=== PATIENT | female | born 1945 | race Caucasian/White ===

== ENCOUNTER 2021-11-16 19:05 | Inpatient (IN) | payer MEDICARE, MEDICAID, SELFPAY ==
--- NOTE | 2021-11-16 | ECG_ITS ---
Test Reason : cp Blood Pressure : / mmHG Vent. Rate : 095 BPM Atrial Rate : 095 BPM P-R Int : 164 ms QRS Dur : 072 ms QT Int : 358 ms P-R-T Axes : 064 014 050 degrees QTc Int : 449 ms Sinus rhythm with occasional Premature ventricular complexes and Premature atrial complexes Possible Left atrial enlargement Borderline ECG No previous ECGs available Referred By: Monse Arechiga Electronically Signed By:Tyler Redd
--- NOTE | ~2021-11-16 | CT_ITS ---
EXAMINATION: CT HEAD WITHOUT CONTRAST CLINICAL INFORMATION: Unwitnessed fall. COMPARISON: None TECHNIQUE: Contiguous axial imaging was performed from the skull base to vertex without intravenous administration of contrast. This CT examination was performed using dose optimization techniques as appropriate, variously including the following: *Automated exposure control *Adjustment of mA and/or kV according to patient size (this includes techniques or standardized protocols for targeted exams where dose is matched to indication/reason for exam; i.e. extremities or head) *Use of iterative reconstruction technique DLP: 670 mGy-cm FINDINGS: There is no evidence of acute intracranial hemorrhage or territorial infarction. No abnormal mass effect or midline shift is seen. Meadows to white matter differentiation is well preserved. No extra-axial fluid collections are identified. The ventricles are normal in size. A few foci of hypoattenuation in the subcortical and periventricular white matter are most consistent with chronic microangiopathic changes. Calcific atherosclerosis is present within the cavernous segments of the internal carotid arteries. Atherosclerosis from talus interna. No acute fractures. Soft tissues are unremarkable. The mastoid air cells and visualized portions of the paranasal sinuses are well aerated. CT/CT head/brain wo con IMPRESSION: No acute intracranial pathology.
--- NOTE | ~2021-11-16 | XR_ITS ---
EXAMINATION: XR KNEE, RIGHT CLINICAL INFORMATION: Unwitnessed fall. Right knee pain COMPARISON: None TECHNIQUE: Four views of the right knee. FINDINGS: The tricompartment joint space is normal. No visible acute fracture or dislocation seen. There is moderate superior patellar sp no abnormal joint effusion. The soft tissues are normal. XR/XR knee RT 2V IMPRESSION: No visible acute fracture or dislocation. Small superior patellar enthesophyte. No abnormal joint effusion.
--- NOTE | ~2021-11-16 | US_ITS ---
EXAMINATION: US VENOUS ULTRASOUND WITH DOPPLER LOWER EXTREMITY, RIGHT CLINICAL INFORMATION: Swelling COMPARISON: None TECHNIQUE: Ultrasound of the deep veins is performed from the hip to the calf with compression sonography and color and pulse Doppler assessment. Spectral analysis with color-flow imaging is performed. FINDINGS: There is normal venous compression and respiratory variation and augmented flow. The visualized common femoral vein, superficial femoral vein, profunda femoral vein, popliteal vein, and the trifurcation region shows no evidence of deep venous thrombosis. There is no significant popliteal fossa cyst. US/US venous duplex LE RT IMPRESSION: No DVT demonstrated in the right lower extremity.
[2021-11-16 19:40] VITALS: BP 120/74; PULSE 82; RESP 18; TEMP 37.5; O2SAT 94
[2021-11-16 19:58] VITALS: BMI 26.4
[2021-11-16 20:32] VITALS: BP 120/74; PULSE 82; RESP 18; TEMP 37.5; O2SAT 94
[2021-11-16 20:54] LABS: Appearance Urine CLEAR; Color Urine STRAW; Glucose Urine UA NEG (NEG); Leukocyte Esterase Urine TRACE (NEG); Nitrite Urine NEG (NEG); Urine Blood NEG (NEG); Urine Ketones NEG (NEG); Urine Protein NEG (NEG-TRACE)
[2021-11-16 21:01] LABS: Bacteria Urine TRACE /LPF; Mucus Urine TRACE /LPF; RBC Urine 0-2 /HPF (0)
[2021-11-16] MEDS: Divalproex Sodium 250 MG TABLET.DR PO (21:41)
[2021-11-16] MEDS: clonazePAM 0.5 MG TABLET PO (21:41)
[2021-11-16] MEDS: Tamsulosin HCL 0.4 MG CAPSULE 0.8 MG PO (21:41)
[2021-11-16] MEDS: Divalproex Sodium 500 MG TABLET.DR PO (21:41)
[2021-11-16] MEDS: OLANZapine 10 MG TABLET 20 MG PO (21:42)
[2021-11-16] MEDS: QUEtiapine Fumarate 50 MG TABLET PO (21:42)
[2021-11-16] MEDS: traZODone HCL 50 MG TABLET PO (22:02)
[2021-11-16] MEDS: clonazePAM 0.5 MG TABLET 1.5 MG PO (22:02)
[2021-11-16] MEDS: oxyCODONE HCl ER 10 MG TAB.ER.12H PO (22:03)
[2021-11-16] MEDS: oxyCODONE HCl Immed Release 5 MG TABLET PO (22:03)
--- NOTE | 2021-11-16 22:09 | PC.ADMIT ---
PT is a 76 year old female, unknown to this unit, admitted on a CV,at 1925, coming from [facility] due to OD of APAP. PT denies Si/HI, A/VH, PT states she 'Feels safe on unit . 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 PT C/O pain 8/10 in right leg which is chronic pain, PT C/O burning and frequency, UA obtained. PT also had an EKG which showed sinus rhythm with PVCs. PT has past medical history of cancer, HTN, GERD, T2DM and asthma. PT has a port on upper right chest for blood draws and chemotherapy. PT was calm, cooperative and medication compliant. PT did refuse her bowel meds this pm. PT last BM was 11/15/21. PT VSS, T 99.5, notified.
[2021-11-17] MEDS: oxyCODONE HCl Immed Release 5 MG TABLET PO ×3 (06:17→21:16)
[2021-11-17] MEDS: Omeprazole 20 MG CAPSULE.DR PO (06:17)
[2021-11-17 07:00] LABS: MANUAL DIFF FLAG NO
[2021-11-17 07:02] LABS: Basophils Percent Auto 0.2 % (0-2); Eosinophils Absolute Auto 0.3 X10*3/uL (0.0-0.4); Eosinophils Percent Auto 5.8 % (0-4); Hematocrit 30.1 % (37.0-47.0); Hemoglobin 9.9 g/dl (12.0-16.0); Imm Gran Abs Auto 0.04 X10*3/uL (0.00-0.03); Imm Gran Pct Auto 0.9 % (0.0-0.4); Lymphocytes Absolute Auto 1.5 X10*3/uL (1.2-4.9); Lymphocytes Percent Auto 30.9 % (20-40); Mean Corpuscular HGB Conc 32.9 g/dl (31.0-35.0); Mean Corpuscular Hemoglobin 28.8 pg (27.0-33.0); Mean Corpuscular Volume 87.5 fL (80.0-98.0); Mean Platelet Volume 10.9 fL (9.4-12.3); Monocytes Absolute Auto 0.6 X10*3/uL (0.1-1.2); Monocytes Percent Auto 13.6 % (2-11); Neutrophils Absolute Auto 2.3 x10*3/uL (2.0-8.3); Neutrophils Percent Auto 48.6 % (45-73); Platelet Count 164 X10*3/uL (160-400); Red Blood Count 3.44 X10*6/uL (4.20-5.50); Red Cell Distribution Width 13.2 % (11.0-16.0); White Blood Count 4.7 X10*3/uL (4.8-10.8)
[2021-11-17 07:14] LABS: Estimated Average Glucose 117 mg/dL; Hemoglobin A1C 119.3684 umol/L; Hemoglobin A1c % 5.7 %
[2021-11-17 07:36] LABS: Valproate 57.4 mcg/mL (50.0-100.0)
[2021-11-17 07:38] LABS: Alanine Aminotransferase 25 U/L (0-31); Albumin Level 3.2 g/dL (3.5-5.0); Alkaline Phosphatase 87 U/L (39-117); Anion Gap 11 (12-20); Aspartate Amino Transferase 18 U/L (5-31); Bilirubin Total 0.4 mg/dL (0.0-1.0); Blood Urea Nitrogen 16 mg/dL (9-16); Carbon Dioxide 31 mmol/L (22-29); Chloride 96 mmol/L (96-108); Cholesterol 137 mg/dL; Creatinine Clr Calc Pharmacy 49.4; Estimated Glomerular Filt Rate 52; Glucose Fasting 109 mg/dL (60-99); HDL Cholesterol 45 mg/dL; LDL Cholesterol Calculated 76 mg/dl; Magnesium 2.1 mg/dL (1.6-2.6); Potassium 4.6 mmol/L (3.3-5.1); Sodium 133 mmol/L (135-145); Total Protein 4.8 g/dL (6.5-8.0); Triglycerides 82 mg/dL
[2021-11-17 07:59] LABS: Free T4 (Free Thyroxine) 1.51 ng/dL (0.71-1.85); Thyroid Stimulating Hormone 0.66 uIU/mL (0.32-4.0)
[2021-11-17 08:00] VITALS: BP 109/58; PULSE 90; TEMP 37.1; O2SAT 91
[2021-11-17 08:03] LABS: Folate 17.5 ng/mL (> or = 4.0); Vitamin B12 529 pg/mL (200-900)
[2021-11-17] MEDS: polyethylene glycoL 3350 17 GM POWD.PACK PO ×2 (08:26→21:06)
[2021-11-17] MEDS: Sennosides 8.6 MG TABLET 17.2 MG PO ×2 (08:26→21:06)
[2021-11-17] MEDS: Loratadine 10 MG TABLET PO (08:26)
[2021-11-17] MEDS: oxyCODONE HCl ER 10 MG TAB.ER.12H PO ×2 (08:27→21:16)
[2021-11-17] MEDS: Aspirin 81 MG TAB.CHEW PO (08:27)
[2021-11-17] MEDS: metFORMIN HCl 500 MG TABLET PO (08:27)
[2021-11-17] MEDS: amLODIPine Besylate 2.5 MG TABLET PO (08:28)
[2021-11-17] MEDS: Fluticasone Propionate Nasal 16 GM SPRAY 1 SPRAY NOSTRIL-B ×2 (08:28→21:22)
[2021-11-17] MEDS: Albuterol Sulfate 90 MCG 8 GM INHALER 2 PUFF INHALE (08:28)
[2021-11-17] MEDS: Multivitamin TABLET 1 TAB PO (08:28)
[2021-11-17] MEDS: Lactulose 20 GM/30 ML SOLUTION PO ×2 (14:11→21:30)
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
[2021-11-17 18:00] VITALS: BP 122/75; PULSE 94; RESP 16; TEMP 36.2; O2SAT 93
[2021-11-17] MEDS: QUEtiapine Fumarate 50 MG TABLET PO (21:06)
[2021-11-17] MEDS: OLANZapine 10 MG TABLET 20 MG PO (21:06)
[2021-11-17] MEDS: Montelukast Sodium 10 MG TABLET PO (21:06)
[2021-11-17] MEDS: Tamsulosin HCL 0.4 MG CAPSULE 0.8 MG PO (21:06)
[2021-11-17] MEDS: Divalproex Sodium 250 MG TABLET.DR PO (21:06)
[2021-11-17] MEDS: Divalproex Sodium 500 MG TABLET.DR PO (21:07)
[2021-11-17] MEDS: clonazePAM 0.5 MG TABLET 1.5 MG PO (21:20)
[2021-11-17] MEDS: Budesonide 180 MCG AER.POW.BA 2 PUFF INHALE (21:21)
[2021-11-18] MEDS: oxyCODONE HCl Immed Release 5 MG TABLET PO ×4 (04:56→20:16)
[2021-11-18] MEDS: Omeprazole 20 MG CAPSULE.DR PO (04:57)
[2021-11-18] MEDS: Budesonide 180 MCG AER.POW.BA 2 PUFF INHALE ×2 (08:41→20:09)
[2021-11-18] MEDS: Fluticasone Propionate Nasal 16 GM SPRAY 1 SPRAY NOSTRIL-B ×2 (08:44→20:09)
[2021-11-18] MEDS: polyethylene glycoL 3350 17 GM POWD.PACK PO ×2 (08:45→20:11)
[2021-11-18] MEDS: Loratadine 10 MG TABLET PO (08:46)
[2021-11-18] MEDS: Aspirin 81 MG TAB.CHEW PO (08:46)
[2021-11-18] MEDS: metFORMIN HCl 500 MG TABLET PO ×2 (08:46→17:14)
[2021-11-18] MEDS: Sennosides 8.6 MG TABLET 17.2 MG PO ×2 (08:46→20:13)
[2021-11-18] MEDS: Multivitamin TABLET 1 TAB PO (08:46)
[2021-11-18] MEDS: amLODIPine Besylate 2.5 MG TABLET PO (08:48)
[2021-11-18 08:53] VITALS: BP 167/74; PULSE 92; RESP 16; TEMP 37.2; O2SAT 96
[2021-11-18] MEDS: Ibuprofen 600 MG TABLET PO (09:19)
[2021-11-18] MEDS: Milk of Magnesia 30 ML ORAL.SUSP PO (09:19)
[2021-11-18 10:24] VITALS: BMI 25.9
[2021-11-18] MEDS: Docusate Sodium 100 MG CAPSULE PO (14:18)
[2021-11-18] MEDS: Lactulose 20 GM/30 ML SOLUTION PO (14:21)
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
[2021-11-18] MEDS: OLANZapine 10 MG TABLET 20 MG PO (20:13)
[2021-11-18] MEDS: Divalproex Sodium 500 MG TABLET.DR PO (20:14)
[2021-11-18] MEDS: Montelukast Sodium 10 MG TABLET PO (20:14)
[2021-11-18] MEDS: Divalproex Sodium 250 MG TABLET.DR PO (20:14)
[2021-11-18] MEDS: QUEtiapine Fumarate 50 MG TABLET PO (20:14)
[2021-11-18] MEDS: oxyCODONE HCl ER 10 MG TAB.ER.12H PO (20:15)
[2021-11-18] MEDS: Tamsulosin HCL 0.4 MG CAPSULE 0.8 MG PO (20:15)
[2021-11-18] MEDS: clonazePAM 0.5 MG TABLET 1.5 MG PO (20:27)
[2021-11-18 21:59] VITALS: BP 127/67; PULSE 86; RESP 17; TEMP 36.3; O2SAT 96
[2021-11-19] MEDS: oxyCODONE HCl Immed Release 5 MG TABLET PO ×4 (01:28→20:37)
[2021-11-19] MEDS: Lactulose 20 GM/30 ML SOLUTION PO ×3 (02:25→20:55)
[2021-11-19 08:29] VITALS: BP 197/62; PULSE 91; RESP 17; TEMP 37.1; O2SAT 93
[2021-11-19] MEDS: Sennosides 8.6 MG TABLET 17.2 MG PO ×2 (09:24→20:36)
[2021-11-19] MEDS: Aspirin 81 MG TAB.CHEW PO (09:24)
[2021-11-19] MEDS: Loratadine 10 MG TABLET PO (09:26)
[2021-11-19] MEDS: amLODIPine Besylate 2.5 MG TABLET PO (09:26)
[2021-11-19] MEDS: metFORMIN HCl 500 MG TABLET PO ×2 (09:27→17:29)
[2021-11-19] MEDS: Fluticasone Propionate Nasal 16 GM SPRAY 1 SPRAY NOSTRIL-B ×2 (09:27→20:36)
[2021-11-19] MEDS: Multivitamin TABLET 1 TAB PO (09:27)
[2021-11-19] MEDS: Omeprazole 20 MG CAPSULE.DR PO (09:28)
[2021-11-19] MEDS: Budesonide 180 MCG AER.POW.BA 2 PUFF INHALE (09:28)
[2021-11-19] MEDS: polyethylene glycoL 3350 17 GM POWD.PACK PO ×2 (09:29→20:38)
[2021-11-19] MEDS: Milk of Magnesia 30 ML ORAL.SUSP PO (10:55)
--- NOTE | 2021-11-19 14:21 | P.PNPSI_ITS ---
Subjective Subjective Date of Service: 11/19/21 Reason For Visit: schizoaffective disorder,bipolar type Subjective Notes: Conditional Voluntary Interim History: the nursing staff reported the patient has been appropriate, she has been taking medications as prescribed. Yesterday we have a family meeting over the phone with her brother and niece who are the guardians. The patient has a very complex situation since she has terminal and they want to give her the longus possible in the hospital but at this moment, the patient adamantly denies suicidal ideation she stated that she took an overdose on medications out of frustration. The nursing facility refused her to be taken due to the recent attempt of suicidality. On interview, the patient came up with a very long list of medication request med and of PRNs and other medications but so far nearly all her request were already addressed. I added the use of her spirometer and PT consult. Mental Status Exam Mental Status Exam Patient Appearance: Well Grooomed Patient Orientation: Person Level of Consciousness: Awake Patient Behavior: Guarded and Cooperative Mood Description: Suspicious and Withdrawn Affect Description: Constricted Patient Cognition Impaired: No Ability to Follow Directions: Good Speech Pattern: Appropriate Hallucinations: Auditory Delusions: Paranoid Ideation, Grandiose and Ideas of Reference Thought Process: Illogical and Distracted Thought Content: positive for Obsessional Thoughts, positive for Circumstantial, positive for Poverty of Content and positive for Incoherent Judgement: Fair Diagnostics Vital Signs (24Hr): Vital Signs - 24 hr 11/18/21 21:59 11/19/21 08:29 Temperature 97.4 F 98.8 F Pulse Rate 86 91 Respiratory Rate 17 17 Blood Pressure 127/67 197/62 H Pulse Oximetry 96 93 BMI result Body Mass Index 25.9 Labs Results: 11/17/21 06:51 11/17/21 06:51 Medications Medications Current Medications Acetaminophen (Acetaminophen 325 Mg Tablet) 650 mg PO Q6H PRN PRN Reason: Headache/Pain Mild Scale (1-3) Al Hydroxide/Mg Hydroxide (Magnesium Hydrox/Alum Hydrox 30 Ml Oral.Susp) 30 ml PO Q6H PRN PRN Reason: Heartburn/Nausea Albuterol Sulfate (Albuterol Sulfate 90 Mcg 8 Gm Inhaler) 2 puff INHALE Q6H PRN PRN Reason: asthma Last Admin: 11/17/21 08:28 Dose: 2 puff Documented by: Amlodipine Besylate (Amlodipine Besylate 2.5 Mg Tablet) 2.5 mg PO DAILY [facility]; Protocol Last Admin: 11/19/21 09:26 Dose: 2.5 mg Documented by: Aspirin (Aspirin 81 Mg Tab.Chew) 81 mg PO DAILY [facility] Last Admin: 11/19/21 09:24 Dose: 81 mg Documented by: Bisacodyl (Bisacodyl 5 Mg Tablet.) 10 mg PO DAILY PRN PRN Reason: Constipation Budesonide (Budesonide 180 Mcg Aer.Pow.Ba) 2 puff INHALE RBID [facility] Last Admin: 11/19/21 09:28 Dose: 2 puff Documented by: Clonazepam (Clonazepam 0.5 Mg Tablet) 1.5 mg PO BID PRN PRN Reason: anxiety Last Admin: 11/18/21 20:27 Dose: 1.5 mg Documented by: Divalproex Sodium (Divalproex Sodium 500 Mg Tablet.) 500 mg PO BEDTIME [facility] Last Admin: 11/18/21 20:14 Dose: 500 mg Documented by: Divalproex Sodium (Divalproex Sodium 250 Mg Tablet.) 250 mg PO BEDTIME [facility] Last Admin: 11/18/21 20:14 Dose: 250 mg Documented by: Docusate Sodium (Docusate Sodium 100 Mg Capsule) 100 mg PO BID PRN PRN Reason: constipation Last Admin: 11/18/21 14:18 Dose: 100 mg Documented by: Fluticasone Propionate (Fluticasone Propionate Nasal 16 Gm [place]) 1 spray N OSTRIL-B BID [facility] Last Admin: 11/19/21 09:27 Dose: 1 spray Documented by: Hydroxyzine HCl (Hydroxyzine Hcl 25 Mg Tablet) 25 mg PO Q6H PRN PRN Reason: Anxiety Ibuprofen (Ibuprofen 600 Mg Tablet) 600 mg PO Q8H PRN PRN Reason: mod-severe pain, fever Last Admin: 11/18/21 09:19 Dose: 600 mg Documented by: Lactulose (Lactulose 20 Gm/30 Ml Solution) 20 gm PO BID PRN PRN Reason: constipation Last Admin: 11/19/21 10:56 Dose: 20 gm Documented by: Loperamide HCl (Loperamide Hcl 2 Mg Capsule) 2 mg PO Q6H PRN PRN Reason: diarrhea Loratadine (Loratadine 10 Mg Tablet) 10 mg PO DAILY [facility] Last Admin: 11/19/21 09:26 Dose: 10 mg Documented by: Magnesium Hydroxide (Milk Of Magnesia 30 Ml Oral.Susp) 30 ml PO DAILY PRN PRN Reason: Constipation Last Admin: 11/19/21 10:55 Dose: 30 ml Documented by: Metformin HCl (Metformin Hcl 500 Mg Tablet) 500 mg PO BIDWM [facility] Last Admin: 11/19/21 09:27 Dose: 500 mg Documented by: Montelukast Sodium (Montelukast Sodium 10 Mg Tablet) 10 mg PO BEDTIME [facility] Last Admin: 11/18/21 20:14 Dose: 10 mg Documented by: Multivitamins/Vitamin C (Multivitamin Tablet) 1 tab PO DAILY [facility] Last Admin: 11/19/21 09:27 Dose: 1 tab Documented by: Olanzapine (Olanzapine 10 Mg Tablet) 20 mg PO BEDTIME [facility] Last Admin: 11/18/21 20:13 Dose: 20 mg Documented by: Omeprazole (Omeprazole 20 Mg Capsule.Dr) 20 mg PO DAILY@0630 [facility] Last Admin: 11/19/21 09:28 Dose: 20 mg Documented by: Ondansetron HCl (Ondansetron Odt 8 Mg Tab.Rapdis) 8 mg TRANSLINGU Q8H PRN PRN Reason: Nausea Oxycodone HCl (Oxycodone Hcl Er 10 Mg Tab.Er.12h) 10 mg PO Q12H [facility] Last Admin: 11/19/21 09:33 Dose: Not Given Documented by: Oxycodone HCl (Oxycodone Hcl Immed Release 5 Mg Tablet) 5 mg PO Q4H PRN PRN Reason: severe pain Last Admin: 11/19/21 11:09 Dose: 5 mg Documented by: Polyethylene Glycol (Polyethylene Glycol 3350 17 Gm Powd.Pack) 17 gm PO BID [facility] Last Admin: 11/19/21 09:29 Dose: 17 gm Documented by: Potassium Chloride (Potassium Chloride Er 10 Meq Capsule.Er) 10 meq PO Q48H [facility] Last Admin: 11/18/21 20:21 Dose: 10 meq Documented by: Prochlorperazine Maleate (Prochlorperazine Maleate 5 Mg Tablet) 5 mg PO TID PRN PRN Reason: nausea, vomiting Quetiapine Fumarate (Quetiapine Fumarate 50 Mg Tablet) 50 mg PO BEDTIME [facility] Last Admin: 11/18/21 20:14 Dose: 50 mg Documented by: Quetiapine Fumarate (Quetiapine Fumarate 50 Mg Tablet) 50 mg PO BID PRN PRN Reason: agitation, anxiety Senna (Sennosides 8.6 Mg Tablet) 17.2 mg PO BID [facility] Last Admin: 11/19/21 09:24 Dose: 17.2 mg Documented by: Simethicone (Simethicone 80 Mg Tab.Chew) 80 mg PO QIDWMHS PRN PRN Reason: gas Sodium Biphosphate/Sodium Phosphate (Sodium Phosphate,[place]-Dibasic 133 Ml Enema) 133 ml [place] ONCE PRN PRN Reason: constipation Tamsulosin HCl (Tamsulosin Hcl 0.4 Mg Capsule) 0.8 mg PO BEDTIME [facility] Last Admin: 11/18/21 20:15 Dose: 0.8 mg Documented by: Trazodone HCl (Trazodone Hcl 50 Mg Tablet) 50 mg PO BEDTIME PRN PRN Reason: Insomnia Last Admin: 11/16/21 22:02 Dose: 50 mg Documented by: Allergies Allergies Allergy/AdvReac Type Severity Reaction Status Date / Time clozapine [From Clozaril] Allergy Unknown decreased Verified 11/16/21 19:39 WBC haloperidol [From Haldol] Allergy Unknown unknown Verified 11/16/21 19:36 cat dander Allergy Unknown Verified 11/16/21 21:31 house dust Allergy Unknown Verified 11/16/21 21:31 Phenothiazines Allergy Unknown Verified 11/16/21 21:31 wool Allergy Unknown Verified 11/16/21 21:31 Assessment & Plan Assessment & Plan (1) Routine medical exam: Status: Acute Code(s): Z00.00 - Encounter for general adult medical examination without abnormal findings Assessment and Plan: The patient is an elderly female with a long history of schizo affective disorder bipolar type with several admissions into the hospital. At this moment she has stage for endometrial cancer she is terminal. She was admitted after she took an overdose of Tylenol after an anger outburst. Plan 1. Continue same medications. 2. We will try to coordinate trying therapy for outpatient. 3. Discharge planning as per social scientist plan I spent minutes with the patient and/or on the patient floor today, greater than?50% of which was spent counseling/coordinating care. Reason for contiued inpatient stay Substantial Risk for: harm to self, inability to function, rapid decompensation and med/psych decompensation
[2021-11-19 15:22] VITALS: BMI 25.9
[2021-11-19] MEDS: Ondansetron ODT 8 MG TAB.RAPDIS TRANSLINGU (15:39)
[2021-11-19] MEDS: Ibuprofen 600 MG TABLET PO (15:44)
[2021-11-19 20:20] VITALS: BP 130/67; PULSE 98; RESP 16; TEMP 36.6; O2SAT 92
[2021-11-19] MEDS: clonazePAM 0.5 MG TABLET 1.5 MG PO (20:36)
[2021-11-19] MEDS: OLANZapine 10 MG TABLET 20 MG PO (20:37)
[2021-11-19] MEDS: QUEtiapine Fumarate 50 MG TABLET PO (20:37)
[2021-11-19] MEDS: Divalproex Sodium 500 MG TABLET.DR PO (20:37)
[2021-11-19] MEDS: Divalproex Sodium 250 MG TABLET.DR PO (20:37)
[2021-11-19] MEDS: traZODone HCL 50 MG TABLET PO (20:37)
[2021-11-19] MEDS: Tamsulosin HCL 0.4 MG CAPSULE 0.8 MG PO (20:38)
[2021-11-19] MEDS: Montelukast Sodium 10 MG TABLET PO (20:38)
[2021-11-19] MEDS: oxyCODONE HCl ER 10 MG TAB.ER.12H PO (20:38)
[2021-11-20] MEDS: oxyCODONE HCl Immed Release 5 MG TABLET PO ×3 (05:39→21:18)
[2021-11-20] MEDS: Omeprazole 20 MG CAPSULE.DR PO (05:39)
[2021-11-20 06:00] VITALS: BP 128/81; PULSE 87; RESP 16; TEMP 36.6; O2SAT 97
--- NOTE | 2021-11-20 06:11 | PC.NURSE ---
Pt. requested the following PRNs Oxycodone 5mg, Clonazepam 1.5mg and trazodone 50mg with HS medications which included Oxycontin 10mg for 9/10 right leg pain. Monse Arechiga NP notified and reported it was ok for pt. to have the PRNs.
[2021-11-20] MEDS: polyethylene glycoL 3350 17 GM POWD.PACK PO ×2 (10:31→21:18)
[2021-11-20] MEDS: Multivitamin TABLET 1 TAB PO (10:33)
[2021-11-20] MEDS: metFORMIN HCl 500 MG TABLET PO ×2 (10:33→17:00)
[2021-11-20] MEDS: Loratadine 10 MG TABLET PO (10:33)
[2021-11-20] MEDS: oxyCODONE HCl ER 10 MG TAB.ER.12H PO ×2 (10:33→21:18)
[2021-11-20] MEDS: Sennosides 8.6 MG TABLET 17.2 MG PO ×2 (10:33→21:17)
[2021-11-20] MEDS: Budesonide 180 MCG AER.POW.BA 2 PUFF INHALE (10:34)
[2021-11-20] MEDS: amLODIPine Besylate 2.5 MG TABLET PO (10:34)
[2021-11-20] MEDS: Aspirin 81 MG TAB.CHEW PO (10:34)
[2021-11-20] MEDS: Fluticasone Propionate Nasal 16 GM SPRAY 1 SPRAY NOSTRIL-B ×2 (10:34→21:14)
[2021-11-20] MEDS: Ondansetron ODT 8 MG TAB.RAPDIS TRANSLINGU (10:47)
[2021-11-20] MEDS: Milk of Magnesia 30 ML ORAL.SUSP PO (10:47)
[2021-11-20] MEDS: Lactulose 20 GM/30 ML SOLUTION PO ×2 (10:49→21:18)
--- NOTE | 2021-11-20 15:25 | P.PNPSI_ITS ---
Subjective Subjective Date of Service: 11/20/21 Reason For Visit: schizoaffective disorder,bipolar type Interim History: with patient presents as very guarded. Was talking about having to give up her brain and so to machinery and technology. Reported [facility] falsifying her records and lying that she has a history of overdose attempts. Reports this was originated at [facility] and she is hopeful for an assisted living facility. Was illogical throughout interview and was talking about her family and abortions. Denied depression SI or HI. Wanted clarification and Klonopin being able to been given 2 doses per 24 hours, otherwise no medication questions or concerns. Medication Compliance: Yes Side effects from medications: No Review of Systems Acute medical concerns: No Review of Systems Review of Systems No new. Chronic pain already noted and being treated Mental Status Exam Mental Status Exam Narrative: seen in room. Pleasant. Hospital clothing and for self-care. Quickly goes off track during interview with loosening of association. Guarded. Does appear paranoid with bizarre delusions. Denied depression. No evidence of SI or HI. Insight and judgment limited Diagnostics Vital Signs (24Hr): Vital Signs - 24 hr 11/19/21 20:20 11/20/21 06:00 Temperature 97.9 F 97.8 F Pulse Rate 98 87 Respiratory Rate 16 16 Blood Pressure 130/67 128/81 Pulse Oximetry 92 97 BMI result Body Mass Index 25.9 Labs Results: 11/17/21 06:51 11/17/21 06:51 Medications Medications Current Medications Acetaminophen (Acetaminophen 325 Mg Tablet) 650 mg PO Q6H PRN PRN Reason: Headache/Pain Mild Scale (1-3) Al Hydroxide/Mg Hydroxide (Magnesium Hydrox/Alum Hydrox 30 Ml Oral.Susp) 30 ml PO Q6H PRN PRN Reason: Heartburn/Nausea Albuterol Sulfate (Albuterol Sulfate 90 Mcg 8 Gm Inhaler) 2 puff INHALE Q6H PRN PRN Reason: asthma Last Admin: 11/17/21 08:28 Dose: 2 puff Documented by: Amlodipine Besylate (Amlodipine Besylate 2.5 Mg Tablet) 2.5 mg PO DAILY [facility]; Protocol Last Admin: 11/20/21 10:34 Dose: 2.5 mg Documented by: Aspirin (Aspirin 81 Mg Tab.Chew) 81 mg PO DAILY [facility] Last Admin: 11/20/21 10:34 Dose: 81 mg Documented by: Bisacodyl (Bisacodyl 5 Mg Tablet.) 10 mg PO DAILY PRN PRN Reason: Constipation Budesonide (Budesonide 180 Mcg Aer.Pow.) 2 puff INHALE RBID [facility] Last Admin: 11/20/21 10:34 Dose: 2 puff Documented by: Clonazepam (Clonazepam 0.5 Mg Tablet) 1.5 mg PO BID PRN PRN Reason: anxiety Last Admin: 11/19/21 20:36 Dose: 1.5 mg Documented by: Divalproex Sodium (Divalproex Sodium 500 Mg Tablet.) 500 mg PO BEDTIME [facility] Last Admin: 11/19/21 20:37 Dose: 500 mg Documented by: Divalproex Sodium (Divalproex Sodium 250 Mg Tablet.) 250 mg PO BEDTIME [facility] Last Admin: 11/19/21 20:37 Dose: 250 mg Documented by: Docusate Sodium (Docusate Sodium 100 Mg Capsule) 100 mg PO BID PRN PRN Reason: constipation Last Admin: 11/18/21 14:18 Dose: 100 mg Documented by: Fluticasone Propionate (Fluticasone Propionate Nasal 16 Gm [place]) 1 spray NOSTRIL-B BID [facility] Last Admin: 11/20/21 10:34 Dose: 1 spray Documented by: Hydroxyzine HCl (Hydroxyzine Hcl 25 Mg Tablet) 25 mg PO Q6H PRN PRN Reason: Anxiety Ibuprofen (Ibuprofen 600 Mg Tablet) 600 mg PO Q8H PRN PRN Reason: mod-severe pain, fever Last Admin: 11/19/21 15:44 Dose: 600 mg Documented by: Lactulose (Lactulose 20 Gm/30 Ml Solution) 20 gm PO BID PRN PRN Reason: constipation Last Admin: 11/20/21 10:49 Dose: 20 gm Documented by: Loperamide HCl (Loperamide Hcl 2 Mg Capsule) 2 mg PO Q6H PRN PRN Reason: diarrhea Loratadine (Loratadine 10 Mg Tablet) 10 mg PO DAILY [facility] Last Admin: 11/20/21 10:33 Dose: 10 mg Documented by: Magnesium Hydroxide (Milk Of Magnesia 30 Ml Oral.Susp) 30 ml PO DAILY PRN PRN Reason: Constipation Last Admin: 11/20/21 10:47 Dose: 30 ml Documented by: Metformin HCl (Metformin Hcl 500 Mg Tablet) 500 mg PO BIDWM [facility] Last Admin: 11/20/21 10:33 Dose: 500 mg Documented by: Montelukast Sodium (Montelukast Sodium 10 Mg Tablet) 10 mg PO BEDTIME [facility] Last Admin: 11/19/21 20:38 Dose: 10 mg Documented by: Multivitamins/Vitamin C (Multivitamin Tablet) 1 tab PO DAILY [facility] Last Admin: 11/20/21 10:33 Dose: 1 tab Documented by: Olanzapine (Olanzapine 10 Mg Tablet) 20 mg PO BEDTIME [facility] Last Admin: 11/19/21 20:37 Dose: 20 mg Documented by: Omeprazole (Omeprazole 20 Mg Capsule.Dr) 20 mg PO DAILY@0630 [facility] Last Admin: 11/20/21 05:39 Dose: 20 mg Documented by: Ondansetron HCl (Ondansetron Odt 8 Mg Tab.Rapdis) 8 mg TRANSLINGU Q8H PRN PRN Reason: Nausea Last Admin: 11/20/21 10:47 Dose: 8 mg Documented by: Oxycodone HCl (Oxycodone Hcl Er 10 Mg Tab.Er.12h) 10 mg PO Q12H [facility] Last Admin: 11/20/21 10:33 Dose: 10 mg Documented by: Oxycodone HCl (Oxycodone Hcl Immed Release 5 Mg Tablet) 5 mg PO Q4H PRN PRN Reason: severe pain Last Admin: 11/20/21 05:39 Dose: 5 mg Documented by: Polyethylene Glycol (Polyethylene Glycol 3350 17 Gm Powd.Pack) 17 gm PO BID [facility] Last Admin: 11/20/21 10:31 Dose: 17 gm Documented by: Potassium Chloride (Potassium Chloride Er 10 Meq Capsule.Er) 10 meq PO Q48H [facility] Last Admin: 11/18/21 20:21 Dose: 10 meq Documented by: Prochlorperazine Maleate (Prochlorperazine Maleate 5 Mg Tablet) 5 mg PO TID PRN PRN Reason: nausea, vomiting Quetiapine Fumarate (Quetiapine Fumarate 50 Mg Tablet) 50 mg PO BEDTIME [facility] Last Admin: 11/19/21 20:37 Dose: 50 mg Documented by: Quetiapine Fumarate (Quetiapine Fumarate 50 Mg Tablet) 50 mg PO BID PRN PRN Reason: agitation, anxiety Senna (Sennosides 8.6 Mg Tablet) 17.2 mg PO BID [facility] Last Admin: 11/20/21 10:33 Dose: 17.2 mg Documented by: Simethicone (Simethicone 80 Mg Tab.Chew) 80 mg PO QIDWMHS PRN PRN Reason: gas Sodium Biphosphate/Sodium Phosphate (Sodium Phosphate,[place]-Dibasic 133 Ml Enema) 133 ml [place] ONCE PRN PRN Reason: constipation Tamsulosin HCl (Tamsulosin Hcl 0.4 Mg Capsule) 0.8 mg PO BEDTIME [facility] Last Admin: 11/19/21 20:38 Dose: 0.8 mg Documented by: Trazodone HCl (Trazodone Hcl 50 Mg Tablet) 50 mg PO BEDTIME PRN PRN Reason: Insomnia Last Admin: 11/19/21 20:37 Dose: 50 mg Documented by: Allergies Allergies Allergy/AdvReac Type Severity Reaction Status Date / Time clozapine [From Clozaril] Allergy Unknown decreased Verified 11/16/21 19:39 WBC haloperidol [From Haldol] Allergy Unknown unknown Verified 11/16/21 19:36 cat dander Allergy Unknown Verified 11/16/21 21:31 house dust Allergy Unknown Verified 11/16/21 21:31 Phenothiazines Allergy Unknown Verified 11/16/21 21:31 wool Allergy Unknown Verified 11/16/21 21:31 Assessment & Plan Assessment & Plan (1) Routine medical exam: Status: Acute Code(s): Z00.00 - Encounter for general adult medical examination without abnormal findings Assessment and Plan: The patient is an elderly female with a long history of schizoaffective disorder bipolar type with several admissions into the hospital. At this moment she has stage for endometrial cancer she is terminal. She was admitted after she took an overdose of Tylenol after an anger outburst. Plan 1. Continue same medications. 2. We will try to coordinate trying therapy for outpatient. 3. Discharge planning as per social and human services assistant plan 11/20/21: no change to primary teams plan I spent minutes with the patient and/or on the patient floor today, greater than?50% of which was spent counseling/coordinating care. Reason for contiued inpatient stay Substantial Risk for: inability to function
[2021-11-20] MEDS: Ibuprofen 600 MG TABLET PO (16:27)
[2021-11-20 21:00] VITALS: BP 127/66; PULSE 83; RESP 16; TEMP 36.6; O2SAT 93
[2021-11-20] MEDS: Divalproex Sodium 500 MG TABLET.DR PO (21:16)
[2021-11-20] MEDS: clonazePAM 0.5 MG TABLET 1.5 MG PO (21:16)
[2021-11-20] MEDS: OLANZapine 10 MG TABLET 20 MG PO (21:17)
[2021-11-20] MEDS: Divalproex Sodium 250 MG TABLET.DR PO (21:17)
[2021-11-20] MEDS: traZODone HCL 50 MG TABLET PO (21:17)
[2021-11-20] MEDS: QUEtiapine Fumarate 50 MG TABLET PO (21:17)
[2021-11-20] MEDS: Montelukast Sodium 10 MG TABLET PO (21:18)
[2021-11-20] MEDS: Tamsulosin HCL 0.4 MG CAPSULE 0.8 MG PO (21:18)
[2021-11-21] MEDS: oxyCODONE HCl Immed Release 5 MG TABLET PO ×3 (01:28→20:46)
[2021-11-21] MEDS: Ibuprofen 600 MG TABLET PO ×2 (01:32→20:52)
[2021-11-21] MEDS: Omeprazole 20 MG CAPSULE.DR PO (05:49)
[2021-11-21 06:00] VITALS: BP 119/65; PULSE 90; TEMP 36.1; O2SAT 92
[2021-11-21] MEDS: Aspirin 81 MG TAB.CHEW PO (08:47)
[2021-11-21] MEDS: metFORMIN HCl 500 MG TABLET PO (08:47)
[2021-11-21] MEDS: Sennosides 8.6 MG TABLET 17.2 MG PO ×2 (08:47→20:46)
[2021-11-21] MEDS: amLODIPine Besylate 2.5 MG TABLET PO (08:47)
[2021-11-21] MEDS: Loratadine 10 MG TABLET PO (08:47)
[2021-11-21] MEDS: Multivitamin TABLET 1 TAB PO (08:47)
[2021-11-21] MEDS: oxyCODONE HCl ER 10 MG TAB.ER.12H PO ×2 (08:47→20:46)
[2021-11-21] MEDS: Fluticasone Propionate Nasal 16 GM SPRAY 1 SPRAY NOSTRIL-B ×2 (08:56→21:03)
[2021-11-21] MEDS: polyethylene glycoL 3350 17 GM POWD.PACK PO ×2 (08:56→20:44)
--- NOTE | 2021-11-21 11:00 | HO.PSYCHPN ---
Subjective Subjective Date of Service: 11/21/21 Reason For Visit: schizoaffective disorder,bipolar type Subjective Notes: Conditional Voluntary Interim History: seen patient in day area. Appear brighter today. Remains concerned around medical medications such as inhalers and pain dosing. Would like primary team to connect with PCP and oncologist Dr. Martha Cabrera on a business day to clarify medication list and dosing etc.. Otherwise remains delusional and paranoid and illogical in thought form at times. Denied depression SI or HI. Medication Compliance: Yes Side effects from medications: No Attending Groups: Yes Review of Systems Acute medical concerns: No Review of Systems Review of Systems No new. Chronic pain already noted and being treated Mental Status Exam Mental Status Exam Narrative: Pleasant. Hospital clothing and for self-care. Quickly goes off track during interview with loosening of association. Guarded. Does appear paranoid with bizarre delusions. Denied depression. No evidence of SI or HI. Insight and judgment limited Diagnostics Vital Signs (24Hr): Vital Signs - 24 hr 11/20/21 21:00 11/21/21 06:00 Temperature 97.8 F 96.9 F Pulse Rate 83 90 Respiratory Rate 16 Blood Pressure 127/66 119/65 Pulse Oximetry 93 92 BMI result Body Mass Index 25.9 Labs Results: 11/17/21 06:51 11/17/21 06:51 Medications Medications Current Medications Acetaminophen (Acetaminophen 325 Mg Tablet) 650 mg PO Q6H PRN PRN Reason: Headache/Pain Mild Scale (1-3) Al Hydroxide/Mg Hydroxide (Magnesium Hydrox/Alum Hydrox 30 Ml Oral.Susp) 30 ml PO Q6H PRN PRN Reason: Heartburn/Nausea Albuterol Sulfate (Albuterol Sulfate 90 Mcg 8 Gm Inhaler) 2 puff INHALE Q6H PRN PRN Reason: asthma Last Admin: 11/17/21 08:28 Dose: 2 puff Documented by: Amlodipine Besylate (Amlodipine Besylate 2.5 Mg Tablet) 2.5 mg PO DAILY [facility]; Protocol Last Admin: 11/21/21 08:47 Dose: 2.5 mg Documented by: Aspirin (Aspirin 81 Mg Tab.Chew) 81 mg PO DAILY [facility] Last Admin: 11/21/21 08:47 Dose: 81 mg Documented by: Bisacodyl (Bisacodyl 5 Mg Tablet.) 10 mg PO DAILY PRN PRN Reason: Constipation Budesonide (Budesonide 180 Mcg Aer.Pow.Ba) 2 puff INHALE RBID [facility] Last Admin: 11/21/21 08:55 Dose: Not Given Documented by: Clonazepam (Clonazepam 0.5 Mg Tablet) 1.5 mg PO BID PRN PRN Reason: anxiety, max 3mg in 24 hours Last Admin: 11/20/21 21:16 Dose: 1.5 mg Documented by: Divalproex Sodium (Divalproex Sodium 500 Mg Tablet.Dr) 500 mg PO BEDTIME [facility] Last Admin: 11/20/21 21:16 Dose: 500 mg Documented by: Divalproex Sodium (Divalproex Sodium 250 Mg Tablet.Dr) 250 mg PO BEDTIME [facility] Last Admin: 11/20/21 21:17 Dose: 250 mg Documented by: Docusate Sodium (Docusate Sodium 100 Mg Capsule) 100 mg PO BID PRN PRN Reason: constipation Last Admin: 11/18/21 14:18 Dose: 100 mg Documented by: Fluticasone Propionate (Fluticasone Propionate Nasal 16 Gm [place]) 1 spray NOSTRIL-B BID [facility] Last Admin: 11/21/21 08:56 Dose: 1 spray Documented by: Hydroxyzine HCl (Hydroxyzine Hcl 25 Mg Tablet) 25 mg PO Q6H PRN PRN Reason: Anxiety Ibuprofen (Ibuprofen 600 Mg Tablet) 600 mg PO Q8H PRN PRN Reason: mod-severe pain, fever Last Admin: 11/21/21 01:32 Dose: 600 mg Documented by: Lactulose (Lactulose 20 Gm/30 Ml Solution) 20 gm PO BID PRN PRN Reason: constipation Last Admin: 11/20/21 21:18 Dose: 20 gm Documented by: Loperamide HCl (Loperamide Hcl 2 Mg Capsule) 2 mg PO Q6H PRN PRN Reason: diarrhea Loratadine (Loratadine 10 Mg Tablet) 10 mg PO DAILY [facility] Last Admin: 11/21/21 08:47 Dose: 10 mg Documented by: Magnesium Hydroxide (Milk Of Magnesia 30 Ml Oral.Susp) 30 ml PO DAILY PRN PRN Reason: Constipation Last Admin: 11/20/21 10:47 Dose: 30 ml Documented by: Metformin HCl (Metformin Hcl 500 Mg Tablet) 500 mg PO BIDWM [facility] Last Admin: 11/21/21 08:47 Dose: 500 mg Documented by: Montelukast Sodium (Montelukast Sodium 10 Mg Tablet) 10 mg PO BEDTIME [facility] Last Admin: 11/20/21 21:18 Dose: 10 mg Documented by: Multivitamins/Vitamin C (Multivitamin Tablet) 1 tab PO DAILY [facility] Last Admin: 11/21/21 08:47 Dose: 1 tab Documented by: Olanzapine (Olanzapine 10 Mg Tablet) 20 mg PO BEDTIME [facility] Last Admin: 11/20/21 21:17 Dose: 20 mg Documented by: Omeprazole (Omeprazole 20 Mg Capsule.Dr) 20 mg PO DAILY@0630 [facility] Last Admin: 11/21/21 05:49 Dose: 20 mg Documented by: Ondansetron HCl (Ondansetron Odt 8 Mg Tab.Rapdis) 8 mg TRANSLINGU Q8H PRN PRN Reason: Nausea Last Admin: 11/20/21 10:47 Dose: 8 mg Documented by: Oxycodone HCl (Oxycodone Hcl Er 10 Mg Tab.Er.12h) 10 mg PO Q12H [facility] Last Admin: 11/21/21 08:47 Dose: 10 mg Documented by: Oxycodone HCl (Oxycodone Hcl Immed Release 5 Mg Tablet) 5 mg PO Q4H PRN PRN Reason: severe pain Last Admin: 11/21/21 05:48 Dose: 5 mg Documented by: Polyethylene Glycol (Polyethylene Glycol 3350 17 Gm Powd.Pack) 17 gm PO BID [facility] Last Admin: 11/21/21 08:56 Dose: 17 gm Documented by: Potassium Chloride (Potassium Chloride Er 10 Meq Capsule.Er) 10 meq PO Q48H [facility] Last Admin: 11/20/21 21:17 Dose: 10 meq Documented by: Prochlorperazine Maleate (Prochlorperazine Maleate 5 Mg Tablet) 5 mg PO TID PRN PRN Reason: nausea, vomiting Quetiapine Fumarate (Quetiapine Fumarate 50 Mg Tablet) 50 mg PO BEDTIME [facility] Last Admin: 11/20/21 21:17 Dose: 50 mg Documented by: Quetiapine Fumarate (Quetiapine Fumarate 50 Mg Tablet) 50 mg PO BID PRN PRN Reason: agitation, anxiety Senna (Sennosides 8.6 Mg Tablet) 17.2 mg PO BID [facility] Last Admin: 11/21/21 08:47 Dose: 17.2 mg Documented by: Simethicone (Simethicone 80 Mg Tab.Chew) 80 mg PO QIDWMHS PRN PRN Reason: gas Sodium Biphosphate/Sodium Phosphate (Sodium Phosphate,[place]-Dibasic 133 Ml Enema) 133 ml [place] ONCE PRN PRN Reason: constipation Tamsulosin HCl (Tamsulosin Hcl 0.4 Mg Capsule) 0.8 mg PO BEDTIME [facility] Last Admin: 11/20/21 21:18 Dose: 0.8 mg Documented by: Trazodone HCl (Trazodone Hcl 50 Mg Tablet) 50 mg PO BEDTIME PRN PRN Reason: Insomnia Last Admin: 11/20/21 21:17 Dose: 50 mg Documented by: Trimethoprim/Sulfamethoxazole (Sulfamethox/Trimeth 800/160 Tablet) 1 tab PO Q12H [facility] Stop: 11/24/21 10:59 Allergies Allergies Allergy/AdvReac Type Severity Reaction Status Date / Time clozapine [From Clozaril] Allergy Unknown decreased Verified 11/16/21 19:39 WBC haloperidol [From Haldol] Allergy Unknown unknown Verified 11/16/21 19:36 cat dander Allergy Unknown Verified 11/16/21 21:31 house dust Allergy Unknown Verified 11/16/21 21:31 Phenothiazines Allergy Unknown Verified 11/16/21 21:31 wool Allergy Unknown Verified 11/16/21 21:31 Assessment & Plan Assessment & Plan (1) Routine medical exam: Status: Acute Code(s): Z00.00 - Encounter for general adult medical examination without abnormal findings Assessment and Plan: The patient is an elderly female with a long history of schizoaffective disorder bipolar type with several admissions into the hospital. At this moment she has stage for endometrial cancer she is terminal. She was admitted after she took an overdose of Tylenol after an anger outburst. Plan 1. Continue same medications. 2. We will try to coordinate trying therapy for outpatient. 3. Discharge planning as per older adult social work specialist plan 11/21/21: no change to primary teams plan. Would like primary team to liaise with primary care provider and her oncologist Dr. Martha Cabrera around medications, inhalers and pain dosing I spent minutes with the patient and/or on the patient floor today, greater than?50% of which was spent counseling/coordinating care. Reason for contiued inpatient stay Substantial Risk for: inability to function
[2021-11-21] MEDS: Sulfamethox/Trimeth 800/160 TABLET 1 TAB PO ×2 (13:18→21:02)
[2021-11-21 18:00] VITALS: BP 135/68; PULSE 87; RESP 17; TEMP 36.6; O2SAT 93
[2021-11-21] MEDS: QUEtiapine Fumarate 50 MG TABLET PO (20:45)
[2021-11-21] MEDS: Divalproex Sodium 500 MG TABLET.DR PO (20:45)
[2021-11-21] MEDS: Divalproex Sodium 250 MG TABLET.DR PO (20:45)
[2021-11-21] MEDS: Tamsulosin HCL 0.4 MG CAPSULE 0.8 MG PO (20:45)
[2021-11-21] MEDS: traZODone HCL 50 MG TABLET PO (20:45)
[2021-11-21] MEDS: OLANZapine 10 MG TABLET 20 MG PO (20:45)
[2021-11-21] MEDS: Montelukast Sodium 10 MG TABLET PO (20:46)
[2021-11-21] MEDS: clonazePAM 0.5 MG TABLET 1.5 MG PO (21:02)
[2021-11-21] MEDS: Albuterol Sulfate 90 MCG 8 GM INHALER 2 PUFF INHALE (21:08)
[2021-11-22] MEDS: hydrOXYzine HCL 25 MG TABLET PO (01:58)
[2021-11-22] MEDS: Ondansetron ODT 8 MG TAB.RAPDIS TRANSLINGU (05:33)
[2021-11-22] MEDS: Omeprazole 20 MG CAPSULE.DR PO (05:34)
[2021-11-22] MEDS: QUEtiapine Fumarate 50 MG TABLET PO ×2 (05:37→22:31)
[2021-11-22 06:00] VITALS: BP 120/68; PULSE 91; RESP 16; TEMP 36.7; O2SAT 94
[2021-11-22] MEDS: metFORMIN HCl 500 MG TABLET PO ×2 (08:43→16:07)
[2021-11-22] MEDS: Aspirin 81 MG TAB.CHEW PO (08:43)
[2021-11-22] MEDS: amLODIPine Besylate 2.5 MG TABLET PO (08:43)
[2021-11-22] MEDS: Loratadine 10 MG TABLET PO (08:43)
[2021-11-22] MEDS: polyethylene glycoL 3350 17 GM POWD.PACK PO ×2 (08:43→22:28)
[2021-11-22] MEDS: Sennosides 8.6 MG TABLET 17.2 MG PO ×2 (08:43→22:31)
[2021-11-22] MEDS: Multivitamin TABLET 1 TAB PO (08:43)
[2021-11-22] MEDS: Fluticasone Propionate Nasal 16 GM SPRAY 1 SPRAY NOSTRIL-B ×2 (08:45→22:26)
[2021-11-22] MEDS: Sulfamethox/Trimeth 800/160 TABLET 1 TAB PO ×2 (11:47→22:30)
[2021-11-22] MEDS: oxyCODONE HCl Immed Release 5 MG TABLET PO ×2 (13:01→19:46)
--- NOTE | 2021-11-22 15:21 | P.PNPSI_ITS ---
Subjective Subjective Date of Service: 11/22/21 Reason For Visit: schizoaffective disorder,bipolar type Subjective Notes: Conditional Voluntary Interim History: the nursing staff reports the patient calls frequently the Monday medication management and for all the PRNs. On interview the patient denies new symptoms she wanted to do some changes in her medications but so far all the suggests that she did were done already Mental Status Exam Mental Status Exam Patient Appearance: Disheveled Patient Orientation: Person Level of Consciousness: Awake Patient Behavior: Cooperative Mood Description: Constricted Affect Description: Depressed Patient Cognition Impaired: No Ability to Follow Directions: Good Speech Pattern: Appropriate Hallucinations: None Delusions: Paranoid Ideation Thought Process: Illogical Thought Content: positive for Circumstantial Judgement: Fair Diagnostics Vital Signs (24Hr): Vital Signs - 24 hr 11/21/21 18:00 11/22/21 06:00 Temperature 97.9 F 98.0 F Pulse Rate 87 91 Respiratory Rate 17 16 Blood Pressure 135/68 120/68 Pulse Oximetry 93 94 BMI result Body Mass Index 25.9 Labs Results: 11/17/21 06:51 11/17/21 06:51 Medications Medications Current Medications Acetaminophen (Acetaminophen 325 Mg Tablet) 650 mg PO Q6H PRN PRN Reason: Headache/Pain Mild Scale (1-3) Al Hydroxide/Mg Hydroxide (Magnesium Hydrox/Alum Hydrox 30 Ml Oral.Susp) 30 ml PO Q6H PRN PRN Reason: Heartburn/Nausea Albuterol Sulfate (Albuterol Sulfate 90 Mcg 8 Gm Inhaler) 2 puff INHALE Q6H PRN PRN Reason: asthma Last Admin: 11/21/21 21:08 Dose: 2 puff Documented by: Amlodipine Besylate (Amlodipine Besylate 2.5 Mg Tablet) 2.5 mg PO DAILY [facility]; Protocol Last Admin: 11/22/21 08:43 Dose: 2.5 mg Documented by: Aspirin (Aspirin 81 Mg Tab.Chew) 81 mg PO DAILY [facility] Last Admin: 11/22/21 08:43 Dose: 81 mg Documented by: Bisacodyl (Bisacodyl 5 Mg Tablet.Dr) 10 mg PO DAILY PRN PRN Reason: Constipation Budesonide (Budesonide 180 Mcg Aer.Pow.Ba) 2 puff INHALE RBID [facility] Last Admin: 11/22/21 11:49 Dose: Not Given Documented by: Clonazepam (Clonazepam 0.5 Mg Tablet) 1.5 mg PO BID PRN PRN Reason: anxiety, max 3mg in 24 hours Last Admin: 11/21/21 21:02 Dose: 1.5 mg Documented by: Divalproex Sodium (Divalproex Sodium 500 Mg Tablet.) 500 mg PO BEDTIME [facility] Last Admin: 11/21/21 20:45 Dose: 500 mg Documented by: Divalproex Sodium (Divalproex Sodium 250 Mg Tablet.) 250 mg PO BEDTIME [facility] Last Admin: 11/21/21 20:45 Dose: 250 mg Documented by: Docusate Sodium (Docusate Sodium 100 Mg Capsule) 100 mg PO BID PRN PRN Reason: constipation Last Admin: 11/18/21 14:18 Dose: 100 mg Documented by: Fluticasone Propionate (Fluticasone Propionate Nasal 16 Gm [place]) 1 spray NOSTRIL-B BID [facility] Last Admin: 11/22/21 08:45 Dose: 1 spray Documented by: Hydroxyzine HCl (Hydroxyzine Hcl 25 Mg Tablet) 25 mg PO Q6H PRN PRN Reason: Anxiety Last Admin: 11/22/21 01:58 Dose: 25 mg Documented by: Ibuprofen (Ibuprofen 600 Mg Tablet) 600 mg PO Q8H PRN PRN Reason: mod-severe pain, fever Last Admin: 11/21/21 20:52 Dose: 600 mg Documented by: Lactulose (Lactulose 20 Gm/30 Ml Solution) 20 gm PO BID PRN PRN Reason: constipation Last Admin: 11/20/21 21:18 Dose: 20 gm Documented by: Loperamide HCl (Loperamide Hcl 2 Mg Capsule) 2 mg PO Q6H PRN PRN Reason: diarrhea Loratadine (Loratadine 10 Mg Tablet) 10 mg PO DAILY [facility] Last Admin: 11/22/21 08:43 Dose: 10 mg Documented by: Magnesium Hydroxide (Milk Of Magnesia 30 Ml Oral.Susp) 30 ml PO DAILY PRN PRN Reason: Constipation Last Admin: 11/20/21 10:47 Dose: 30 ml Documented by: Metformin HCl (Metformin Hcl 500 Mg Tablet) 500 mg PO BIDWM [facility] Last Admin: 11/22/21 08:43 Dose: 500 mg Documented by: Montelukast Sodium (Montelukast Sodium 10 Mg Tablet) 10 mg PO BEDTIME [facility] Last Admin: 11/21/21 20:46 Dose: 10 mg Documented by: Multivitamins/Vitamin C (Multivitamin Tablet) 1 tab PO DAILY [facility] Last Admin: 11/22/21 08:43 Dose: 1 tab Documented by: Olanzapine (Olanzapine 10 Mg Tablet) 20 mg PO BEDTIME [facility] Last Admin: 11/21/21 20:45 Dose: 20 mg Documented by: Omeprazole (Omeprazole 20 Mg Capsule.Dr) 20 mg PO DAILY@0630 [facility] Last Admin: 11/22/21 05:34 Dose: 20 mg Documented by: Ondansetron HCl (Ondansetron Odt 8 Mg Tab.Rapdis) 8 mg TRANSLINGU Q8H PRN PRN Reason: Nausea Last Admin: 11/22/21 05:33 Dose: 8 mg Documented by: Oxycodone HCl (Oxycodone Hcl Immed Release 5 Mg Tablet) 5 mg PO Q4H PRN PRN Reason: Pain, Mild (Pain Scale 1-3) Last Admin: 11/22/21 13:01 Dose: 5 mg Documented by: Polyethylene Glycol (Polyethylene Glycol 3350 17 Gm Powd.Pack) 17 gm PO BID [facility] Last Admin: 11/22/21 08:43 Dose: 17 gm Documented by: Potassium Chloride (Potassium Chloride Er 10 Meq Capsule.Er) 10 meq PO Q48H [facility] Last Admin: 11/20/21 21:17 Dose: 10 meq Documented by: Prochlorperazine Maleate (Prochlorperazine Maleate 5 Mg Tablet) 5 mg PO TID PRN PRN Reason: nausea, vomiting Quetiapine Fumarate (Quetiapine Fumarate 50 Mg Tablet) 50 mg PO BEDTIME [facility] Last Admin: 11/21/21 20:45 Dose: 50 mg Documented by: Quetiapine Fumarate (Quetiapine Fumarate 50 Mg Tablet) 50 mg PO BID PRN PRN Reason: agitation, anxiety Last Admin: 11/22/21 05:37 Dose: 50 mg Documented by: Senna (Sennosides 8.6 Mg Tablet) 17.2 mg PO BID [facility] Last Admin: 11/22/21 08:43 Dose: 17.2 mg Documented by: Simethicone (Simethicone 80 Mg Tab.Chew) 80 mg PO QIDWMHS PRN PRN Reason: gas Sodium Biphosphate/Sodium Phosphate (Sodium Phosphate,[place]-Dibasic 133 Ml Enema) 133 ml [place] ONCE PRN PRN Reason: constipation Tamsulosin HCl (Tamsulosin Hcl 0.4 Mg Capsule) 0.8 mg PO BEDTIME [facility] Last Admin: 11/21/21 20:45 Dose: 0.8 mg Documented by: Trazodone HCl (Trazodone Hcl 50 Mg Tablet) 50 mg PO BEDTIME PRN PRN Reason: Insomnia Last Admin: 11/21/21 20:45 Dose: 50 mg Documented by: Trimethoprim/Sulfamethoxazole (Sulfamethox/Trimeth 800/160 Tablet) 1 tab PO Q12H [facility] Stop: 11/24/21 10:59 Last Admin: 11/22/21 11:47 Dose: 1 tab Documented by: Allergies Allergies Allergy/AdvReac Type Severity Reaction Status Date / Time clozapine [From Clozaril] Allergy Unknown decreased Verified 11/16/21 19:39 WBC haloperidol [From Haldol] Allergy Unknown unknown Verified 11/16/21 19:36 cat dander Allergy Unknown Verified 11/16/21 21:31 house dust Allergy Unknown Verified 11/16/21 21:31 Phenothiazines Allergy Unknown Verified 11/16/21 21:31 wool Allergy Unknown Verified 11/16/21 21:31 Assessment & Plan Assessment & Plan (1) Routine medical exam: Status: Acute Code(s): Z00.00 - Encounter for general adult medical examination without abnormal findings Assessment and Plan: The patient is an elderly female with a long history of schizoaffective disorder bipolar type with several admissions into the hospital. At this moment she has stage for endometrial cancer she is terminal. She was admitted after she took an overdose of Tylenol after an anger outburst. Plan 1. Continue same medications. 2. We will try to coordinate trying therapy for outpatient. 3. Discharge planning as per social security benefits interviewer plan 11/21/21: no change to primary teams plan. Would like primary team to liaise with primary care provider and her oncologist Dr. Martha Cabrera around medications, inhalers and pain dosing I spent minutes with the patient and/or on the patient floor today, greater than?50% of which was spent counseling/coordinating care. Reason for contiued inpatient stay Substantial Risk for: inability to function, rapid decompensation and med/psych decompensation
--- NOTE | 2021-11-22 15:29 | MHC.CLN ---
NUTRITION HIGH NUTRITIONAL RISK DUE TO CANCER DX. REGULAR DIET WITH ENSURE BID (700 KCAL, 26-40 G PROTEIN). APPEARS TO BE EATING WELL. CONTINUE TO FOLLOW.
[2021-11-22] MEDS: Ibuprofen 600 MG TABLET PO (15:54)
[2021-11-22 18:00] VITALS: BP 123/64; PULSE 90; TEMP 36.9; O2SAT 94
[2021-11-22] MEDS: Budesonide 180 MCG AER.POW.BA 2 PUFF INHALE (22:27)
[2021-11-22] MEDS: Divalproex Sodium 500 MG TABLET.DR PO (22:29)
[2021-11-22] MEDS: Divalproex Sodium 250 MG TABLET.DR PO (22:30)
[2021-11-22] MEDS: OLANZapine 10 MG TABLET 20 MG PO (22:31)
[2021-11-22] MEDS: Tamsulosin HCL 0.4 MG CAPSULE 0.8 MG PO (22:31)
[2021-11-22] MEDS: Montelukast Sodium 10 MG TABLET PO (22:32)
[2021-11-22] MEDS: oxyCODONE HCl ER 10 MG TAB.ER.12H PO (22:33)
[2021-11-22] MEDS: clonazePAM 0.5 MG TABLET 1.5 MG PO (22:41)
[2021-11-23] MEDS: traZODone HCL 50 MG TABLET PO ×2 (01:33→21:14)
[2021-11-23] MEDS: Lactulose 20 GM/30 ML SOLUTION PO ×2 (01:42→21:34)
[2021-11-23] MEDS: Omeprazole 20 MG CAPSULE.DR PO (06:23)
[2021-11-23 07:30] VITALS: BP 122/69; PULSE 88; RESP 17; TEMP 37; O2SAT 96
[2021-11-23] MEDS: oxyCODONE HCl ER 10 MG TAB.ER.12H PO ×2 (08:21→21:14)
[2021-11-23] MEDS: polyethylene glycoL 3350 17 GM POWD.PACK PO ×2 (08:21→21:12)
[2021-11-23] MEDS: Loratadine 10 MG TABLET PO (08:22)
[2021-11-23] MEDS: amLODIPine Besylate 2.5 MG TABLET PO (08:22)
[2021-11-23] MEDS: Fluticasone Propionate Nasal 16 GM SPRAY 1 SPRAY NOSTRIL-B ×2 (08:22→21:11)
[2021-11-23] MEDS: Multivitamin TABLET 1 TAB PO (08:22)
[2021-11-23] MEDS: metFORMIN HCl 500 MG TABLET PO ×2 (08:22→17:08)
[2021-11-23] MEDS: Aspirin 81 MG TAB.CHEW PO (08:22)
[2021-11-23] MEDS: Sennosides 8.6 MG TABLET 17.2 MG PO ×2 (08:22→21:14)
[2021-11-23] MEDS: Albuterol Sulfate 90 MCG 8 GM INHALER 2 PUFF INHALE (08:40)
[2021-11-23] MEDS: Ondansetron ODT 8 MG TAB.RAPDIS TRANSLINGU (08:40)
[2021-11-23] MEDS: Sulfamethox/Trimeth 800/160 TABLET 1 TAB PO ×2 (11:35→22:35)
[2021-11-23] MEDS: oxyCODONE HCl Immed Release 5 MG TABLET PO (15:36)
--- NOTE | 2021-11-23 17:41 | HO.PSYCHPN ---
Subjective Subjective Date of Service: 11/23/21 Reason For Visit: schizoaffective disorder,bipolar type Subjective Notes: Conditional Voluntary Interim History: The nursing staff reports the patient has asked for frequent PRNs and she is angry in the unit sings her needs are not fulfilled as fast as she wants. She slept 5 hours and she has taken all her meals. On interview, the patient was pleasant and cooperative. I explained that I talk with Dr. Cabrera and her radiotherapy can wait a according to her. She asked for an increased dose of p.r.n. and medications. She is fully aware that she can get dizzy and sedated with increase of opioids. Mental Status Exam Mental Status Exam Patient Appearance: Well Grooomed Patient Orientation: Person Level of Consciousness: Awake Patient Behavior: Cooperative Mood Description: Depressed Affect Description: Constricted Patient Cognition Impaired: No Ability to Follow Directions: Good Speech Pattern: Clear Hallucinations: None Delusions: Not Present Thought Process: Linear Thought Content: positive for Circumstantial Judgement: Fair Diagnostics Vital Signs (24Hr): Vital Signs - 24 hr 11/22/21 18:00 11/23/21 07:30 Temperature 98.4 F 98.6 F Pulse Rate 90 88 Respiratory Rate 17 Blood Pressure 123/64 122/69 Pulse Oximetry 94 96 BMI result Body Mass Index 25.9 Labs Results: 11/17/21 06:51 11/17/21 06:51 Medications Medications Current Medications Acetaminophen (Acetaminophen 325 Mg Tablet) 650 mg PO Q6H PRN PRN Reason: Headache/Pain Mild Scale (1-3) Al Hydroxide/Mg Hydroxide (Magnesium Hydrox/Alum Hydrox 30 Ml Oral.Susp) 30 ml PO Q6H PRN PRN Reason: Heartburn/Nausea Albuterol Sulfate (Albuterol Sulfate 90 Mcg 8 Gm Inhaler) 2 puff INHALE Q6H PRN PRN Reason: asthma Last Admin: 11/23/21 08:40 Dose: 2 puff Documented by: Amlodipine Besylate (Amlodipine Besylate 2.5 Mg Tablet) 2.5 mg PO DAILY [facility]; Protocol Last Admin: 11/23/21 08:22 Dose: 2.5 mg Documented by: Aspirin (Aspirin 81 Mg Tab.Chew) 81 mg PO DAILY [facility] Last Admin: 11/23/21 08:22 Dose: 81 mg Documented by: Bisacodyl (Bisacodyl 5 Mg Tablet.) 10 mg PO DAILY PRN PRN Reason: Constipation Budesonide (Budesonide 180 Mcg Aer.Pow.Ba) 2 puff INHALE RBID [facility] Last Admin: 11/23/21 08:27 Dose: Not Given Documented by: Clonazepam (Clonazepam 0.5 Mg Tablet) 1.5 mg PO BID PRN PRN Reason: anxiety, max 3mg in 24 hours Last Admin: 11/22/21 22:41 Dose: 1.5 mg Documented by: Divalproex Sodium (Divalproex Sodium 500 Mg Tablet.) 500 mg PO BEDTIME [facility] Last Admin: 11/22/21 22:29 Dose: 500 mg Documented by: Divalproex Sodium (Divalproex Sodium 250 Mg Tablet.) 250 mg PO BEDTIME [facility] Last Admin: 11/22/21 22:30 Dose: 250 mg Documented by: Docusate Sodium (Docusate Sodium 100 Mg Capsule) 100 mg PO BID PRN PRN Reason: constipation Last Admin: 11/18/21 14:18 Dose: 100 mg Documented by: Fluticasone Propionate (Fluticasone Propionate Nasal 16 Gm [place]) 1 spray NOSTRIL-B BID [facility] Last Admin: 11/23/21 08:22 Dose: 1 spray Documented by: Hydroxyzine HCl (Hydroxyzine Hcl 25 Mg Tablet) 25 mg PO Q6H PRN PRN Reason: Anxiety Last Admin: 11/22/21 01:58 Dose: 25 mg Documented by: Ibuprofen (Ibuprofen 600 Mg Tablet) 600 mg PO Q8H PRN PRN Reason: mod-severe pain, fever Last Admin: 11/22/21 15:54 Dose: 600 mg Documented by: Lactulose (Lactulose 20 Gm/30 Ml Solution) 20 gm PO BID PRN PRN Reason: constipation Last Admin: 11/23/21 01:42 Dose: 20 gm Documented by: Loperamide HCl (Loperamide Hcl 2 Mg Capsule) 2 mg PO Q6H PRN PRN Reason: diarrhea Loratadine (Loratadine 10 Mg Tablet) 10 mg PO DAILY [facility] Last Admin: 11/23/21 08:22 Dose: 10 mg Documented by: Magnesium Hydroxide (Milk Of Magnesia 30 Ml Oral.Susp) 30 ml PO DAILY PRN PRN Reason: Constipation Last Admin: 11/20/21 10:47 Dose: 30 ml Documented by: Metformin HCl (Metformin Hcl 500 Mg Tablet) 500 mg PO BIDWM [facility] Last Admin: 11/23/21 17:08 Dose: 500 mg Documented by: Montelukast Sodium (Montelukast Sodium 10 Mg Tablet) 10 mg PO BEDTIME [facility] Last Admin: 11/22/21 22:32 Dose: 10 mg Documented by: Multivitamins/Vitamin C (Multivitamin Tablet) 1 tab PO DAILY [facility] Last Admin: 11/23/21 08:22 Dose: 1 tab Documented by: Olanzapine (Olanzapine 10 Mg Tablet) 20 mg PO BEDTIME [facility] Last Admin: 11/22/21 22:31 Dose: 20 mg Documented by: Omeprazole (Omeprazole 20 Mg Capsule.Dr) 20 mg PO DAILY@0630 [facility] Last Admin: 11/23/21 06:23 Dose: 20 mg Documented by: Ondansetron HCl (Ondansetron Odt 8 Mg Tab.Rapdis) 8 mg TRANSLINGU Q8H PRN PRN Reason: Nausea Last Admin: 11/23/21 08:40 Dose: 8 mg Documented by: Oxycodone HCl (Oxycodone Hcl Immed Release 5 Mg Tablet) 5 mg PO Q4H PRN PRN Reason: Pain, Mild (Pain Scale 1-3) Last Admin: 11/23/21 15:36 Dose: 5 mg Documented by: Oxycodone HCl (Oxycodone Hcl Er 10 Mg Tab.Er.12h) 10 mg PO BID [facility] Last Admin: 11/23/21 08:21 Dose: 10 mg Documented by: Polyethylene Glycol (Polyethylene Glycol 3350 17 Gm Powd.Pack) 17 gm PO BID [facility] Last Admin: 11/23/21 08:21 Dose: 17 gm Documented by: Potassium Chloride (Potassium Chloride Er 10 Meq Capsule.Er) 10 meq PO Q48H [facility] Last Admin: 11/22/21 22:30 Dose: 10 meq Documented by: Prochlorperazine Maleate (Prochlorperazine Maleate 5 Mg Tablet) 5 mg PO TID PRN PRN Reason: nausea, vomiting Quetiapine Fumarate (Quetiapine Fumarate 50 Mg Tablet) 50 mg PO BEDTIME [facility] Last Admin: 11/22/21 22:31 Dose: 50 mg Documented by: Quetiapine Fumarate (Quetiapine Fumarate 50 Mg Tablet) 50 mg PO BID PRN PRN Reason: agitation, anxiety Last Admin: 11/22/21 05:37 Dose: 50 mg Documented by: Senna (Sennosides 8.6 Mg Tablet) 17.2 mg PO BID [facility] Last Admin: 11/23/21 08:22 Dose: 17.2 mg Documented by: Simethicone (Simethicone 80 Mg Tab.Chew) 80 mg PO QIDWMHS PRN PRN Reason: gas Sodium Biphosphate/Sodium Phosphate (Sodium Phosphate,[place]-Dibasic 133 Ml Enema) 133 ml [place] ONCE PRN PRN Reason: constipation Tamsulosin HCl (Tamsulosin Hcl 0.4 Mg Capsule) 0.8 mg PO BEDTIME [facility] Last Admin: 11/22/21 22:31 Dose: 0.8 mg Documented by: Trazodone HCl (Trazodone Hcl 50 Mg Tablet) 50 mg PO BEDTIME PRN PRN Reason: Insomnia Last Admin: 11/23/21 01:33 Dose: 50 mg Documented by: Trimethoprim/Sulfamethoxazole (Sulfamethox/Trimeth 800/160 Tablet) 1 tab PO Q12H [facility] Stop: 11/24/21 10:59 Last Admin: 11/23/21 11:35 Dose: 1 tab Documented by: Allergies Allergies Allergy/AdvReac Type Severity Reaction Status Date / Time clozapine [From Clozaril] Allergy Unknown decreased Verified 11/16/21 19:39 WBC haloperidol [From Haldol] Allergy Unknown unknown Verified 11/16/21 19:36 cat dander Allergy Unknown Verified 11/16/21 21:31 house dust Allergy Unknown Verified 11/16/21 21:31 Phenothiazines Allergy Unknown Verified 11/16/21 21:31 wool Allergy Unknown Verified 11/16/21 21:31 Assessment & Plan Assessment & Plan (1) Routine medical exam: Status: Acute Code(s): Z00.00 - Encounter for general adult medical examination without abnormal findings Assessment and Plan: The patient is an elderly female with a long history of schizoaffective disorder bipolar type with several admissions into the hospital. At this moment she has stage for endometrial cancer she is terminal. She was admitted after she took an overdose of Tylenol after an anger outburst. Plan 1. Continue same medications. 2. We will try to coordinate trying therapy for outpatient. 3. Discharge planning as per certified social workers in health care plan, possible transfer to [facility] 4. Increase opioids for pain I spent minutes with the patient and/or on the patient floor today, greater than?50% of which was spent counseling/coordinating care. Reason for contiued inpatient stay Substantial Risk for: inability to function, rapid decompensation and med/psych decompensation
[2021-11-23 21:10] VITALS: BP 121/78; PULSE 91; RESP 17; TEMP 37.1; O2SAT 96
[2021-11-23] MEDS: clonazePAM 0.5 MG TABLET 1.5 MG PO (21:12)
[2021-11-23] MEDS: OLANZapine 10 MG TABLET 20 MG PO (21:12)
[2021-11-23] MEDS: Divalproex Sodium 500 MG TABLET.DR PO (21:13)
[2021-11-23] MEDS: oxyCODONE HCl Immed Release 5 MG TABLET 10 MG PO (21:13)
[2021-11-23] MEDS: Divalproex Sodium 250 MG TABLET.DR PO (21:14)
[2021-11-23] MEDS: Tamsulosin HCL 0.4 MG CAPSULE 0.8 MG PO (21:14)
[2021-11-23] MEDS: Montelukast Sodium 10 MG TABLET PO (21:14)
[2021-11-23] MEDS: QUEtiapine Fumarate 50 MG TABLET PO (21:14)
[2021-11-23] MEDS: Milk of Magnesia 30 ML ORAL.SUSP PO (21:34)
[2021-11-24] MEDS: Ibuprofen 600 MG TABLET PO ×2 (03:11→22:56)
[2021-11-24] MEDS: Omeprazole 20 MG CAPSULE.DR PO (06:25)
[2021-11-24 07:45] VITALS: BP 98/65; PULSE 93; RESP 16; TEMP 37; O2SAT 97
[2021-11-24 08:30] LABS: MANUAL DIFF FLAG NO
[2021-11-24 08:37] LABS: Basophils Percent Auto 0.5 % (0-2); Eosinophils Absolute Auto 0.2 X10*3/uL (0.0-0.4); Eosinophils Percent Auto 2.7 % (0-4); Hematocrit 31.4 % (37.0-47.0); Hemoglobin 10.1 g/dl (12.0-16.0); Imm Gran Abs Auto 0.07 X10*3/uL (0.00-0.03); Imm Gran Pct Auto 1.2 % (0.0-0.4); Lymphocytes Absolute Auto 1.6 X10*3/uL (1.2-4.9); Lymphocytes Percent Auto 27.2 % (20-40); Mean Corpuscular HGB Conc 32.2 g/dl (31.0-35.0); Mean Corpuscular Hemoglobin 28.2 pg (27.0-33.0); Mean Corpuscular Volume 87.7 fL (80.0-98.0); Mean Platelet Volume 10.3 fL (9.4-12.3); Monocytes Percent Auto 16.6 % (2-11); Neutrophils Absolute Auto 3.1 x10*3/uL (2.0-8.3); Neutrophils Percent Auto 51.8 % (45-73); Platelet Count 257 X10*3/uL (160-400); Red Blood Count 3.58 X10*6/uL (4.20-5.50); Red Cell Distribution Width 13.3 % (11.0-16.0)
[2021-11-24 08:58] LABS: Anion Gap 14 (12-20); Blood Urea Nitrogen 19 mg/dL (9-16); Calcium 9.2 mg/dL (8.4-10.2); Carbon Dioxide 31 mmol/L (22-29); Chloride 97 mmol/L (96-108); Creatinine Clr Calc Pharmacy 34.3; Estimated Glomerular Filt Rate 35; Glucose Random 84 mg/dL (60-115); Potassium 4.6 mmol/L (3.3-5.1); Sodium 137 mmol/L (135-145)
[2021-11-24] MEDS: Loratadine 10 MG TABLET PO (09:54)
[2021-11-24] MEDS: polyethylene glycoL 3350 17 GM POWD.PACK PO ×2 (09:54→21:50)
[2021-11-24] MEDS: Aspirin 81 MG TAB.CHEW PO (09:55)
[2021-11-24] MEDS: Sennosides 8.6 MG TABLET 17.2 MG PO ×2 (09:55→21:51)
[2021-11-24] MEDS: Multivitamin TABLET 1 TAB PO (09:55)
[2021-11-24] MEDS: Fluticasone Propionate Nasal 16 GM SPRAY 1 SPRAY NOSTRIL-B ×2 (09:56→21:49)
[2021-11-24] MEDS: metFORMIN HCl 500 MG TABLET PO ×2 (09:56→17:44)
[2021-11-24] MEDS: Lactulose 20 GM/30 ML SOLUTION PO ×2 (09:56→21:49)
[2021-11-24] MEDS: Albuterol Sulfate 90 MCG 8 GM INHALER 2 PUFF INHALE ×2 (09:57→22:02)
--- NOTE | 2021-11-24 09:57 | MHC.CLN ---
F/U NO NOTED CONCERNS WITH DIET OR INTAKE. RD TO FOLLOW WEEKLY.
[2021-11-24] MEDS: oxyCODONE HCl ER 10 MG TAB.ER.12H PO ×2 (10:07→21:52)
[2021-11-24] MEDS: oxyCODONE HCl Immed Release 5 MG TABLET 10 MG PO ×2 (10:53→21:51)
[2021-11-24 14:35] LABS: Appearance Urine HAZY; Color Urine YELLOW; Glucose Urine UA NEG (NEG); Leukocyte Esterase Urine 1+ (NEG); Nitrite Urine NEG (NEG); Urine Blood NEG (NEG); Urine Ketones NEG (NEG); Urine Protein NEG (NEG-TRACE)
[2021-11-24 14:56] LABS: Bacteria Urine 1+ /LPF; Squamous Epithelial Cell Urine 1+ /LPF
--- NOTE | 2021-11-24 15:28 | HO.PSYCHPN ---
Subjective Subjective Date of Service: 11/24/21 Reason For Visit: schizoaffective disorder,bipolar type Subjective Notes: Conditional Voluntary Interim History: The nursing staff reported the patient has asked several times for her several PRNs and other medications. She is very focused on her medications and pain management. On interview, the patient denies suicidal ideation she looks pleasant and cooperative, she admitted that she overdosed orally because she was very angry. We will try to contact [facility] to see we can transfer her over there so she can continue with her radiotherapy. Mental Status Exam Mental Status Exam Patient Appearance: Well Grooomed and Disheveled Patient Orientation: Person Level of Consciousness: Alert Patient Behavior: Cooperative Mood Description: Depressed Affect Description: Constricted Patient Cognition Impaired: No Ability to Follow Directions: Good Speech Pattern: Clear Memory Description: Intact Delusions: Paranoid Ideation and Grandiose Thought Process: Linear Thought Content: positive for Circumstantial, positive for Perseveration, positive for Poverty of Content and positive for Neologisms Judgement: Poor Diagnostics Vital Signs (24Hr): Vital Signs - 24 hr 11/23/21 21:10 11/24/21 07:45 Temperature 98.7 F 98.6 F Pulse Rate 91 93 Respiratory Rate 17 16 Blood Pressure 121/78 98/65 Pulse Oximetry 96 97 BMI result Body Mass Index 25.9 Labs Results: 11/24/21 08:26 11/24/21 08:26 Labs: Laboratory Results - last 48 hr 11/24/21 11/24/21 11/24/21 08:26 08:26 Unknown WBC 6.0 RBC 3.58 L Hgb 10.1 L Hct 31.4 L MCV 87.7 MCH 28.2 MCHC 32.2 RDW 13.3 Plt Count 257 D MPV 10.3 Immature Gran % (Auto) 1.2 H Neut % (Auto) 51.8 Lymph % (Auto) 27.2 [place] % (Auto) 16.6 H Eos % (Auto) 2.7 Baso % (Auto) 0.5 Lymph # (Auto) 1.6 [place] # (Auto) 1.0 Eos # (Auto) 0.2 Baso # (Auto) 0.0 Abs Immat Gran (auto) 0.07 H Absolute Neuts (auto) 3.1 Absolute Nucleated RBC 0.000 Nucleated RBC % (auto) 0.0 Sodium 137 Potassium 4.6 Chloride 97 Carbon Dioxide 31 H Anion Gap 14 BUN 19 H Creatinine 1.47 H Estim Creat Clear Calc 34.3 Estimated GFR 35 Random Glucose 84 Calcium 9.2 Urine Color YELLOW Urine Appearance HAZY Urine pH 7.0 Ur Specific [place] 1.010 Urine Protein NEG Urine Glucose (UA) NEG Urine Ketones NEG Urine Blood NEG Urine Nitrite NEG Ur Leukocyte Esterase 1+ H Urine RBC 5-9 H Urine WBC 15-29 H Ur Squamous Epith Cells 1+ Urine Bacteria 1+ Medications Medications Current Medications Acetaminophen (Acetaminophen 325 Mg Tablet) 650 mg PO Q6H PRN PRN Reason: Headache/Pain Mild Scale (1-3) Al Hydroxide/Mg Hydroxide (Magnesium Hydrox/Alum Hydrox 30 Ml Oral.Susp) 30 ml PO Q6H PRN PRN Reason: Heartburn/Nausea Albuterol Sulfate (Albuterol Sulfate 90 Mcg 8 Gm Inhaler) 2 puff INHALE Q6H PRN PRN Reason: asthma Last Admin: 11/24/21 09:57 Dose: 2 puff Documented by: Amlodipine Besylate (Amlodipine Besylate 2.5 Mg Tablet) 2.5 mg PO DAILY [facility]; Protocol Last Admin: 11/24/21 10:14 Dose: Not Given Documented by: Aspirin (Aspirin 81 Mg Tab.Chew) 81 mg PO DAILY [facility] Last Admin: 11/24/21 09:55 Dose: 81 mg Documented by: Bisacodyl (Bisacodyl 5 Mg Tablet.) 10 mg PO DAILY PRN PRN Reason: Constipation Budesonide (Budesonide 180 Mcg Aer.Pow.Ba) 2 puff INHALE RBID [facility] Last Admin: 11/24/21 12:44 Dose: Not Given Documented by: Clonazepam (Clonazepam 0.5 Mg Tablet) 1.5 mg PO BID PRN PRN Reason: anxiety, max 3mg in 24 hours Last Admin: 11/23/21 21:12 Dose: 1.5 mg Documented by: Divalproex Sodium (Divalproex Sodium 500 Mg Tablet.) 500 mg PO BEDTIME [facility] Last Admin: 11/23/21 21:13 Dose: 500 mg Documented by: Divalproex Sodium (Divalproex Sodium 250 Mg Tablet.) 250 mg PO BEDTIME [facility] Last Admin: 11/23/21 21:14 Dose: 250 mg Documented by: Docusate Sodium (Docusate Sodium 100 Mg Capsule) 100 mg PO BID PRN PRN Reason: constipation Last Admin: 11/18/21 14:18 Dose: 100 mg Documented by: Fluticasone Propionate (Fluticasone Propionate Nasal 16 Gm [place]) 1 spray NOSTRIL-B BID [facility] Last Admin: 11/24/21 09:56 Dose: 1 spray Documented by: Hydroxyzine HCl (Hydroxyzine Hcl 25 Mg Tablet) 25 mg PO Q6H PRN PRN Reason: Anxiety Last Admin: 11/22/21 01:58 Dose: 25 mg Documented by: Ibuprofen (Ibuprofen 600 Mg Tablet) 600 mg PO Q8H PRN PRN Reason: mod-severe pain, fever Last Admin: 11/24/21 03:11 Dose: 600 mg Documented by: Lactulose (Lactulose 20 Gm/30 Ml Solution) 20 gm PO BID PRN PRN Reason: constipation Last Admin: 11/24/21 09:56 Dose: 20 gm Documented by: Loperamide HCl (Loperamide Hcl 2 Mg Capsule) 2 mg PO Q6H PRN PRN Reason: diarrhea Loratadine (Loratadine 10 Mg Tablet) 10 mg PO DAILY [facility] Last Admin: 11/24/21 09:54 Dose: 10 mg Documented by: Magnesium Hydroxide (Milk Of Magnesia 30 Ml Oral.Susp) 30 ml PO DAILY PRN PRN Reason: Constipation Last Admin: 11/23/21 21:34 Dose: 30 ml Documented by: Metformin HCl (Metformin Hcl 500 Mg Tablet) 500 mg PO BIDWM [facility] Last Admin: 11/24/21 09:56 Dose: 500 mg Documented by: Montelukast Sodium (Montelukast Sodium 10 Mg Tablet) 10 mg PO BEDTIME [facility] Last Admin: 11/23/21 21:14 Dose: 10 mg Documented by: Multivitamins/Vitamin C (Multivitamin Tablet) 1 tab PO DAILY [facility] Last Admin: 11/24/21 09:55 Dose: 1 tab Documented by: Olanzapine (Olanzapine 10 Mg Tablet) 20 mg PO BEDTIME [facility] Last Admin: 11/23/21 21:12 Dose: 20 mg Documented by: Omeprazole (Omeprazole 20 Mg Capsule.Dr) 20 mg PO DAILY@0630 [facility] Last Admin: 11/24/21 06:25 Dose: 20 mg Documented by: Ondansetron HCl (Ondansetron Odt 8 Mg Tab.Rapdis) 8 mg TRANSLINGU Q8H PRN PRN Reason: Nausea Last Admin: 11/23/21 08:40 Dose: 8 mg Documented by: Oxycodone HCl (Oxycodone Hcl Er 10 Mg Tab.Er.12h) 10 mg PO BID [facility] Last Admin: 11/24/21 10:07 Dose: 10 mg Documented by: Oxycodone HCl (Oxycodone Hcl Immed Release 5 Mg Tablet) 10 mg PO Q4H PRN PRN Reason: Pain, Mild (Pain Scale 1-3) Last Admin: 11/24/21 10:53 Dose: 10 mg Documented by: Polyethylene Glycol (Polyethylene Glycol 3350 17 Gm Powd.Pack) 17 gm PO BID [facility] Last Admin: 11/24/21 09:54 Dose: 17 gm Documented by: Potassium Chloride (Potassium Chloride Er 10 Meq Capsule.Er) 10 meq PO Q48H [facility] Last Admin: 11/22/21 22:30 Dose: 10 meq Documented by: Prochlorperazine Maleate (Prochlorperazine Maleate 5 Mg Tablet) 5 mg PO TID PRN PRN Reason: nausea, vomiting Quetiapine Fumarate (Quetiapine Fumarate 50 Mg Tablet) 50 mg PO BEDTIME [facility] Last Admin: 11/23/21 21:14 Dose: 50 mg Documented by: Quetiapine Fumarate (Quetiapine Fumarate 50 Mg Tablet) 50 mg PO BID PRN PRN Reason: agitation, anxiety Last Admin: 11/22/21 05:37 Dose: 50 mg Documented by: Senna (Sennosides 8.6 Mg Tablet) 17.2 mg PO BID [facility] Last Admin: 11/24/21 09:55 Dose: 17.2 mg Documented by: Simethicone (Simethicone 80 Mg Tab.Chew) 80 mg PO QIDWMHS PRN PRN Reason: gas Sodium Biphosphate/Sodium Phosphate (Sodium Phosphate,[place]-Dibasic 133 Ml Enema) 133 ml [place] ONCE PRN PRN Reason: constipation Tamsulosin HCl (Tamsulosin Hcl 0.4 Mg Capsule) 0.8 mg PO BEDTIME [facility] Last Admin: 11/23/21 21:14 Dose: 0.8 mg Documented by: Trazodone HCl (Trazodone Hcl 50 Mg Tablet) 50 mg PO BEDTIME PRN PRN Reason: Insomnia Last Admin: 11/23/21 21:14 Dose: 50 mg Documented by: Allergies Allergies Allergy/AdvReac Type Severity Reaction Status Date / Time clozapine [From Clozaril] Allergy Unknown decreased Verified 11/16/21 19:39 WBC haloperidol [From Haldol] Allergy Unknown unknown Verified 11/16/21 19:36 cat dander Allergy Unknown Verified 11/16/21 21:31 house dust Allergy Unknown Verified 11/16/21 21:31 Phenothiazines Allergy Unknown Verified 11/16/21 21:31 wool Allergy Unknown Verified 11/16/21 21:31 Assessment & Plan Assessment & Plan (1) Routine medical exam: Status: Acute Code(s): Z00.00 - Encounter for general adult medical examination without abnormal findings Plan The patient is an elderly female with a long history of schizoaffective disorder bipolar type with several admissions into the hospital. At this moment she has stage for endometrial cancer she is terminal. She was admitted after she took an overdose of Tylenol after an anger outburst. Plan 1. Continue same medications. 2. We will try to coordinate trying therapy for outpatient. 3. Discharge planning as per social studies department chair plan, possible transfer to [facility] 4. Increase opioids for pain I spent minutes with the patient and/or on the patient floor today, greater than?50% of which was spent counseling/coordinating care. Reason for contiued inpatient stay Substantial Risk for: inability to function, rapid decompensation and med/psych decompensation
[2021-11-24 21:40] VITALS: BP 91/50; PULSE 86; RESP 17; TEMP 37.4; O2SAT 94
[2021-11-24] MEDS: Milk of Magnesia 30 ML ORAL.SUSP PO (21:49)
[2021-11-24] MEDS: clonazePAM 0.5 MG TABLET 1.5 MG PO (21:50)
[2021-11-24] MEDS: Divalproex Sodium 500 MG TABLET.DR PO (21:51)
[2021-11-24] MEDS: OLANZapine 10 MG TABLET 20 MG PO (21:51)
[2021-11-24] MEDS: QUEtiapine Fumarate 50 MG TABLET PO (21:51)
[2021-11-24] MEDS: Divalproex Sodium 250 MG TABLET.DR PO (21:51)
[2021-11-24] MEDS: Montelukast Sodium 10 MG TABLET PO (21:52)
[2021-11-24] MEDS: Tamsulosin HCL 0.4 MG CAPSULE 0.8 MG PO (21:52)
[2021-11-24] MEDS: traZODone HCL 50 MG TABLET PO (21:52)
[2021-11-25] MEDS: traZODone HCL 50 MG TABLET PO (00:25)
[2021-11-25] MEDS: oxyCODONE HCl Immed Release 5 MG TABLET 10 MG PO ×3 (04:55→21:13)
[2021-11-25] MEDS: Omeprazole 20 MG CAPSULE.DR PO (04:56)
[2021-11-25 05:35] VITALS: BP 101/60; PULSE 98; RESP 18; TEMP 36.6; O2SAT 94
--- NOTE | 2021-11-25 06:36 | PC.NURSE ---
Addendum entered by Romy Boss RN 11/25/21 06:57: CMP was ordered, not CBC. Original Note: Pt. reports urinary retention. will call order clerk provider, Claudia Lux NP, notified of the following. Pt. was bladder scanned at 2205 for 857ml. She voided right after the bladder scan and PVR was 800ml. She refused a straight cath. Pt. reports the bactrim is not working because she continues to experience burning on urination and reports urine is dark. Urine not witnessed. Urine culture showed 1+ leukocyte, 5-9 RBC, 15-29 WBC and culture came back indicating mixed bacterial suhas. Straight cath attempted unsuccessfully. Pt. refused to allow the other RN to attempt. She is unable to lift and bend right leg due to pain. When the catheter met with some resistance she was unable to tolerate it and asked RN to stop. She voided in the toilet again and reported a small amount of urine. She declined another bladder scan. A hat was placed in her toilet to monitor amount and quality of urine. Pt. is agreeable to another bladder scan at 0630 but has requested she be allowed to rest. She has been irritable tonight. Pt. is in a lot of pain despite the medication. She was under the impression she was getting a parker catheter and was angry when it was explained that was not the case. Pt. called for medication around 0445. She had voided 100ml in the bathroom. Urine yellow, a little dark but clear. She agreed to let the other RN, Dante try the straight cath. This attempt was also unsuccessful. It was difficult to identify the urethral opening due to swelling and protuberances of tissue. The catheter was met with resistance again. The pt. asked for the procedure to stop. She reported this has been an issue in the past. She follows with [facility]. VS obtained - 97.9, HR98, 101/60, 94% on RA, 18. Also pt. reports chronic pain in RLE. The lower leg below the knee is edematous. Difficult to quantify because pt. asked us not to touch it d/t pain. RN spoke to Claudia and the following orders are being entered: Urology consult, CBC, Doppler U/S of RLE. Pt. is resting quietly in bed.
[2021-11-25 08:21] LABS: Alanine Aminotransferase 12 U/L (0-31); Albumin Level 3.3 g/dL (3.5-5.0); Alkaline Phosphatase 85 U/L (39-117); Anion Gap 13 (12-20); Aspartate Amino Transferase 14 U/L (5-31); Bilirubin Total 0.2 mg/dL (0.0-1.0); Blood Urea Nitrogen 21 mg/dL (9-16); Calcium 9.2 mg/dL (8.4-10.2); Carbon Dioxide 30 mmol/L (22-29); Chloride 94 mmol/L (96-108); Creatinine Clr Calc Pharmacy 32.7; Estimated Glomerular Filt Rate 33; Glucose Random 90 mg/dL (60-115); Potassium 4.8 mmol/L (3.3-5.1); Sodium 132 mmol/L (135-145); Total Protein 4.9 g/dL (6.5-8.0)
[2021-11-25 09:57] VITALS: BMI 26.6
[2021-11-25] MEDS: amLODIPine Besylate 2.5 MG TABLET PO (10:34)
[2021-11-25] MEDS: Aspirin 81 MG TAB.CHEW PO (10:35)
[2021-11-25] MEDS: metFORMIN HCl 500 MG TABLET PO ×2 (10:35→17:05)
[2021-11-25] MEDS: oxyCODONE HCl ER 10 MG TAB.ER.12H PO ×2 (10:35→20:43)
[2021-11-25] MEDS: Budesonide 180 MCG AER.POW.BA 2 PUFF INHALE (10:35)
[2021-11-25] MEDS: Multivitamin TABLET 1 TAB PO (10:35)
[2021-11-25] MEDS: Fluticasone Propionate Nasal 16 GM SPRAY 1 SPRAY NOSTRIL-B ×2 (10:35→20:46)
[2021-11-25] MEDS: Sennosides 8.6 MG TABLET 17.2 MG PO ×2 (10:35→20:45)
[2021-11-25] MEDS: Loratadine 10 MG TABLET PO (10:35)
[2021-11-25] MEDS: polyethylene glycoL 3350 17 GM POWD.PACK PO (10:38)
--- NOTE | 2021-11-25 14:31 | P.PNPSI_ITS ---
Subjective Subjective Date of Service: 11/25/21 Reason For Visit: schizoaffective disorder,bipolar type Subjective Notes: Conditional Voluntary Interim History: The nursing staff reported that the patient has been cooperative and pleasant, fully compliant with treatment. She reported dysuria and RN tried to straight cath since there was urinary retention with poor success. She was able to urinate later but a consult to Urology was done. Dr. Ventura will see her later in the afternoon. Today, during the interview, she adamantly denied suicidal or homicidal th oughts, no safety concerns. No evidence of psychnois at this moment. Mental Status Exam Mental Status Exam Patient Appearance: Appropriate Patient Orientation: Person and Situation Level of Consciousness: Awake Patient Behavior: Cooperative Mood Description: Withdrawn Affect Description: Constricted Patient Cognition Impaired: No Ability to Follow Directions: Good Speech Pattern: Clear Memory Description: Intact Hallucinations: None Delusions: Not Present Thought Process: Linear Judgement: Fair Diagnostics Vital Signs (24Hr): Vital Signs - 24 hr 11/24/21 21:40 11/25/21 05:35 Temperature 99.4 F 97.9 F Pulse Rate 86 98 Respiratory Rate 17 18 Blood Pressure 91/50 L 101/60 Pulse Oximetry 94 94 BMI result Verdana 4 Body Mass Index Verdana 4 26.6 Verdana 4 Verdana 4 Labs Results: 11/24/21 08:26 11/25/21 07:54 Labs: Laboratory Results - last 48 hr 11/24/21 11/24/21 11/24/21 08:26 08:26 Unknown WBC 6.0 RBC 3.58 L Hgb 10.1 L Hct 31.4 L MCV 87.7 MCH 28.2 MCHC 32.2 RDW 13.3 Plt Count 257 D MPV 10.3 Immature Gran % (Auto) 1.2 H Neut % (Auto) 51.8 Lymph % (Auto) 27.2 [place] % (Auto) 16.6 H Eos % (Auto) 2.7 Baso % (Auto) 0.5 Lymph # (Auto) 1.6 [place] # (Auto) 1.0 Eos # (Auto) 0.2 Baso # (Auto) 0.0 Abs Immat Gran (auto) 0.07 H Absolute Neuts (auto) 3.1 Absolute Nucleated RBC 0.000 Nucleated RBC % (auto) 0.0 Sodium 137 Potassium 4.6 Chloride 97 Carbon Dioxide 31 H Anion Gap 14 BUN 19 H Creatinine 1.47 H Estim Creat Clear Calc 34.3 Estimated GFR 35 Random Glucose 84 Calcium 9.2 Total Bilirubin AST ALT Alkaline Phosphatase Total Protein Albumin Urine Color YELLOW Urine Appearance HAZY Urine pH 7.0 Ur Specific [place] 1.010 Urine Protein NEG Urine Glucose (UA) NEG Urine Ketones NEG Urine Blood NEG Urine Nitrite NEG Ur Leukocyte Esterase 1+ H Urine RBC 5-9 H Urine WBC 15-29 H Ur Squamous Epith Cells 1+ Urine Bacteria 1+ 11/25/21 07:54 WBC RBC Hgb Hct MCV MCH MCHC RDW Plt Count MPV Immature Gran % (Auto) Neut % (Auto) Lymph % (Auto) [place] % (Auto) Eos % (Auto) Baso % (Auto) Lymph # (Auto) [place] # (Auto) Eos # (Auto) Baso # (Auto) Abs Immat Gran (auto) Absolute Neuts (auto) Absolute Nucleated RBC Nucleated RBC % (auto) Sodium 132 L Potassium 4.8 Chloride 94 L Carbon Dioxide 30 H Anion Gap 13 BUN 21 H Creatinine 1.54 H Estim Creat Clear Calc 32.7 Estimated GFR 33 Random Glucose 90 Calcium 9.2 Total Bilirubin 0.2 AST 14 ALT 12 Alkaline Phosphatase 85 Total Protein 4.9 L Albumin 3.3 L Urine Color Urine Appearance Urine pH Ur Specific [place] Urine Protein Urine Glucose (UA) Urine Ketones Urine Blood Urine Nitrite Ur Leukocyte Esterase Urine RBC Urine WBC Ur Squamous Epith Cells Urine Bacteria Imaging Radiology Impressions: ITS Impressions Venous Duplex 11/25/21 11:03 IMPRESSION: No DVT demonstrated in the right lower extremity. Medications Medications Current Medications Acetaminophen (Acetaminophen 325 Mg Tablet) 650 mg PO Q6H PRN PRN Reason: Headache/Pain Mild Scale (1-3) Al Hydroxide/Mg Hydroxide (Magnesium Hydrox/Alum Hydrox 30 Ml Oral.Susp) 30 ml PO Q6H PRN PRN Reason: Heartburn/Nausea Albuterol Sulfate (Albuterol Sulfate 90 Mcg 8 Gm Inhaler) 2 puff INHALE Q6H PRN PRN Reason: asthma Last Admin: 11/24/21 22:02 Dose: 2 puff Documented by: Amlodipine Besylate (Amlodipine Besylate 2.5 Mg Tablet) 2.5 mg PO DAILY [facility]; Protocol Last Admin: 11/25/21 10:34 Dose: 2.5 mg Documented by: Aspirin (Aspirin 81 Mg Tab.Chew) 81 mg PO DAILY [facility] Last Admin: 11/25/21 10:35 Dose: 81 mg Documented by: Bisacodyl (Bisacodyl 5 Mg Tablet.) 10 mg PO DAILY PRN PRN Reason: Constipation Budesonide (Budesonide 180 Mcg Aer.Pow.Ba) 2 puff INHALE RBID [facility] Last Admin: 11/25/21 10:35 Dose: 2 puff Documented by: Clonazepam (Clonazepam 0.5 Mg Tablet) 1.5 mg PO BID PRN PRN Reason: anxiety, max 3mg in 24 hours Last Admin: 11/24/21 21:50 Dose: 1.5 mg Documented by: Divalproex Sodium (Divalproex Sodium 500 Mg Tablet.) 500 mg PO BEDTIME [facility] Last Admin: 11/24/21 21:51 Dose: 500 mg Documented by: Divalproex Sodium (Divalproex Sodium 250 Mg Tablet.) 250 mg PO BEDTIME [facility] Last Admin: 11/24/21 21:51 Dose: 250 mg Documented by: Docusate Sodium (Docusate Sodium 100 Mg Capsule) 100 mg PO BID PRN PRN Reason: constipation Last Admin: 11/18/21 14:18 Dose: 100 mg Documented by: Fluticasone Propionate (Fluticasone Propionate Nasal 16 Gm [place]) 1 spray NOSTRIL-B BID [facility] Last Admin: 11/25/21 10:35 Dose: 1 spray Documented by: Hydroxyzine HCl (Hydroxyzine Hcl 25 Mg Tablet) 25 mg PO Q6H PRN PRN Reason: Anxiety Last Admin: 11/22/21 01:58 Dose: 25 mg Documented by: Ibuprofen (Ibuprofen 600 Mg Tablet) 600 mg PO Q8H PRN PRN Reason: mod-severe pain, fever Last Admin: 11/24/21 22:56 Dose: 600 mg Documented by: Lactulose (Lactulose 20 Gm/30 Ml Solution) 20 gm PO BID PRN PRN Reason: constipation Last Admin: 11/24/21 21:49 Dose: 20 gm Documented by: Loperamide HCl (Loperamide Hcl 2 Mg Capsule) 2 mg PO Q6H PRN PRN Reason: diarrhea Loratadine (Loratadine 10 Mg Tablet) 10 mg PO DAILY [facility] Last Admin: 11/25/21 10:35 Dose: 10 mg Documented by: Magnesium Hydroxide (Milk Of Magnesia 30 Ml Oral.Susp) 30 ml PO DAILY PRN PRN Reason: Constipation Last Admin: 11/24/21 21:49 Dose: 30 ml Documented by: Metformin HCl (Metformin Hcl 500 Mg Tablet) 500 mg PO BIDWM [facility] Last Admin: 11/25/21 10:35 Dose: 500 mg Documented by: Montelukast Sodium (Montelukast Sodium 10 Mg Tablet) 10 mg PO BEDTIME [facility] Last Admin: 11/24/21 21:52 Dose: 10 mg Documented by: Multivitamins/Vitamin C (Multivitamin Tablet) 1 tab PO DAILY [facility] Last Admin: 11/25/21 10:35 Dose: 1 tab Documented by: Olanzapine (Olanzapine 10 Mg Tablet) 20 mg PO BEDTIME [facility] Last Admin: 11/24/21 21:51 Dose: 20 mg Documented by: Omeprazole (Omeprazole 20 Mg Capsule.Dr) 20 mg PO DAILY@0630 [facility] Last Admin: 11/25/21 04:56 Dose: 20 mg Documented by: Ondansetron HCl (Ondansetron Odt 8 Mg Tab.Rapdis) 8 mg TRANSLINGU Q8H PRN PRN Reason: Nausea Last Admin: 11/23/21 08:40 Dose: 8 mg Documented by: Oxycodone HCl (Oxycodone Hcl Er 10 Mg Tab.Er.12h) 10 mg PO BID [facility] Last Admin: 11/25/21 10:35 Dose: 10 mg Documented by: Oxycodone HCl (Oxycodone Hcl Immed Release 5 Mg Tablet) 10 mg PO Q4H PRN PRN Reason: Pain, Mild (Pain Scale 1-3) Last Admin: 11/25/21 04:55 Dose: 10 mg Documented by: Polyethylene Glycol (Polyethylene Glycol 3350 17 Gm Powd.Pack) 17 gm PO BID [facility] Last Admin: 11/25/21 10:38 Dose: 17 gm Documented by: Potassium Chloride (Potassium Chloride Er 10 Meq Capsule.Er) 10 meq PO Q48H [facility] Last Admin: 11/24/21 21:51 Dose: 10 meq Documented by: Prochlorperazine Maleate (Prochlorperazine Maleate 5 Mg Tablet) 5 mg PO TID PRN PRN Reason: nausea, vomiting Quetiapine Fumarate (Quetiapine Fumarate 50 Mg Tablet) 50 mg PO BEDTIME [facility] Last Admin: 11/24/21 21:51 Dose: 50 mg Documented by: Quetiapine Fumarate (Quetiapine Fumarate 50 Mg Tablet) 50 mg PO BID PRN PRN Reason: agitation, anxiety Last Admin: 11/22/21 05:37 Dose: 50 mg Documented by: Senna (Sennosides 8.6 Mg Tablet) 17.2 mg PO BID [facility] Last Admin: 11/25/21 10:35 Dose: 17.2 mg Documented by: Simethicone (Simethicone 80 Mg Tab.Chew) 80 mg PO QIDWMHS PRN PRN Reason: gas Sodium Biphosphate/Sodium Phosphate (Sodium Phosphate,[place]-Dibasic 133 Ml Enema) 133 ml [place] ONCE PRN PRN Reason: constipation Tamsulosin HCl (Tamsulosin Hcl 0.4 Mg Capsule) 0.8 mg PO BEDTIME [facility] Last Admin: 11/24/21 21:52 Dose: 0.8 mg Documented by: Trazodone HCl (Trazodone Hcl 50 Mg Tablet) 50 mg PO BEDTIME PRN PRN Reason: Insomnia Last Admin: 11/25/21 00:25 Dose: 50 mg Documented by: Allergies Allergies Allergy/AdvReac Type Severity Reaction Status Date / Time clozapine [From Allergy Unknown decreased Verified 11/16/21 19:39 Clozaril] WBC haloperidol [From Allergy Unknown unknown Verified 11/16/21 19:36 Haldol] cat dander Allergy Unknown Verified 11/16/21 21:31 house dust Allergy Unknown Verified 11/16/21 21:31 Phenothiazines Allergy Unknown Verified 11/16/21 21:31 wool Allergy Unknown Verified 11/16/21 21:31 Assessment & Plan Assessment & Plan (1) Routine medical exam: Status: Acute Code(s): Z00.00 - Encounter for general adult medical examination without abnormal findings Plan The patient is an elderly female with a long history of schizoaffective disorder bipolar type with several admissions into the hospital. At this moment she has stage for endometrial cancer she is terminal. She was admitted after she took an overdose of Tylenol after an anger outburst. Plan 1. Continue same medications. 2. We will try to coordinate trying therapy for outpatient. 3. Discharge planning as per social science instructor plan, possible transfer to SNF. 4. Increase opioids for pain as per yesterday. 5. Urology consult I spent minutes with the patient and/or on the patient floor today, greater than?50% of which was spent counseling/coordinating care. Reason for contiued inpatient stay Substantial Risk for: inability to function, rapid decompensation and med/psych decompensation
[2021-11-25] MEDS: Ibuprofen 600 MG TABLET PO (17:05)
[2021-11-25 19:06] VITALS: BP 110/65; PULSE 77; RESP 16; TEMP 36.5; O2SAT 94
[2021-11-25] MEDS: Montelukast Sodium 10 MG TABLET PO (20:42)
[2021-11-25] MEDS: Tamsulosin HCL 0.4 MG CAPSULE 0.8 MG PO (20:43)
[2021-11-25] MEDS: Divalproex Sodium 250 MG TABLET.DR PO (20:43)
[2021-11-25] MEDS: OLANZapine 10 MG TABLET 20 MG PO (20:44)
[2021-11-25] MEDS: Divalproex Sodium 500 MG TABLET.DR PO (20:44)
[2021-11-25] MEDS: QUEtiapine Fumarate 50 MG TABLET PO (20:45)
[2021-11-25] MEDS: Albuterol Sulfate 90 MCG 8 GM INHALER 2 PUFF INHALE (21:12)
--- NOTE | 2021-11-25 21:28 | PC.NURSE ---
PT PVR 864ml at 21:10, PT voided 150ml in hat in toilet. PT denies symptoms and is refusing straight cath, MD Lux notified. PT said, I will let you know if I am having symptoms then you can straight cath me.
--- NOTE | 2021-11-25 21:57 | PC.NURSE ---
Hospitalist Shay notified that PT is refusing straight cath and PVR is 864ml.
--- NOTE | 2021-11-25 22:30 | PC.NURSE ---
PT informed this magazine writer, I do not to be woken up tonight or in the am. Asked why people wake her up and PT stated, For VS, stomache pill and ultrasound. PT has bladder scan order every 4 hours, not ultrasound.
[2021-11-26] MEDS: oxyCODONE HCl Immed Release 5 MG TABLET 10 MG PO ×4 (01:34→20:31)
--- NOTE | 2021-11-26 02:01 | PC.NURSE ---
Patient wakes up at 0130h,c/o pain on her R. leg given PRN Oxycodone 10 mg.po. and bladder scan for 999ml.Patient. brought to the bathroom and able to urinate 100 ml of clear yellow urine. Straight cath.aseptically and was able to get 900 ml of clear yellow urine.Patient cooperative and tolerated the procedure very well.
[2021-11-26] MEDS: Omeprazole 20 MG CAPSULE.DR PO (06:35)
[2021-11-26] MEDS: Sennosides 8.6 MG TABLET 17.2 MG PO ×2 (09:46→20:25)
[2021-11-26] MEDS: amLODIPine Besylate 2.5 MG TABLET PO (09:46)
[2021-11-26] MEDS: Aspirin 81 MG TAB.CHEW PO (09:46)
[2021-11-26] MEDS: Multivitamin TABLET 1 TAB PO (09:46)
[2021-11-26] MEDS: oxyCODONE HCl ER 10 MG TAB.ER.12H PO ×2 (09:46→20:47)
[2021-11-26] MEDS: metFORMIN HCl 500 MG TABLET PO ×2 (09:46→16:49)
[2021-11-26] MEDS: Loratadine 10 MG TABLET PO (09:46)
[2021-11-26] MEDS: Budesonide 180 MCG AER.POW.BA 2 PUFF INHALE (09:52)
[2021-11-26] MEDS: Fluticasone Propionate Nasal 16 GM SPRAY 1 SPRAY NOSTRIL-B ×2 (09:53→20:31)
[2021-11-26] MEDS: polyethylene glycoL 3350 17 GM POWD.PACK PO ×2 (09:53→20:26)
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
--- NOTE | 2021-11-26 17:22 | HO.PSYCHPN ---
Subjective Subjective Date of Service: 11/26/21 Reason For Visit: schizoaffective disorder,bipolar type Subjective Notes: Conditional Voluntary Interim History: The nursing staff reports the patient has been walking with help, compliant with her treatment. She was seen by neurologist and recommended to keep it straight cathing whenever she needs it. She was started on Bactrim as prophylaxis. On interview the patient is pleasant and cooperative she adamantly denies suicidal ideation and she wants to continue with her medical care. At this moment, at baseline with no safety concerns Mental Status Exam Mental Status Exam Patient Appearance: Disheveled Patient Orientation: Person, Place and Time Level of Consciousness: Awake Patient Behavior: Cooperative Mood Description: Depressed Affect Description: Constricted Patient Cognition Impaired: No Ability to Follow Directions: Good Speech Pattern: Appropriate Memory Description: Intact Hallucinations: Auditory Delusions: Paranoid Ideation Thought Process: Intact Thought Content: positive for Loose Associations and positive for Thought Blocking Judgement: Fair Diagnostics Vital Signs (24Hr): Vital Signs - 24 hr 11/25/21 19:06 Temperature 97.7 F Pulse Rate 77 Respiratory Rate 16 Blood Pressure 110/65 Pulse Oximetry 94 BMI result Body Mass Index 26.6 Labs Results: 11/24/21 08:26 11/25/21 07:54 Labs: Laboratory Results - last 48 hr 11/25/21 07:54 Sodium 132 L Potassium 4.8 Chloride 94 L Carbon Dioxide 30 H Anion Gap 13 BUN 21 H Creatinine 1.54 H Estim Creat Clear Calc 32.7 Estimated GFR 33 Random Glucose 90 Calcium 9.2 Total Bilirubin 0.2 AST 14 ALT 12 Alkaline Phosphatase 85 Total Protein 4.9 L Albumin 3.3 L Imaging Radiology Impressions: ITS Impressions Venous Duplex 11/25/21 11:03 IMPRESSION: No DVT demonstrated in the right lower extremity. Medications Medications Current Medications Acetaminophen (Acetaminophen 325 Mg Tablet) 650 mg PO Q6H PRN PRN Reason: Headache/Pain Mild Scale (1-3) Al Hydroxide/Mg Hydroxide (Magnesium Hydrox/Alum Hydrox 30 Ml Oral.Susp) 30 ml PO Q6H PRN PRN Reason: Heartburn/Nausea Albuterol Sulfate (Albuterol Sulfate 90 Mcg 8 Gm Inhaler) 2 puff INHALE Q6H PRN PRN Reason: asthma Last Admin: 11/25/21 21:12 Dose: 2 puff Documented by: Amlodipine Besylate (Amlodipine Besylate 2.5 Mg Tablet) 2.5 mg PO DAILY [facility]; Protocol Last Admin: 11/26/21 09:46 Dose: 2.5 mg Documented by: Aspirin (Aspirin 81 Mg Tab.Chew) 81 mg PO DAILY [facility] Last Admin: 11/26/21 09:46 Dose: 81 mg Documented by: Bisacodyl (Bisacodyl 5 Mg Tablet.) 10 mg PO DAILY PRN PRN Reason: Constipation Budesonide (Budesonide 180 Mcg Aer.Pow.Ba) 2 puff INHALE RBID [facility] Last Admin: 11/26/21 09:52 Dose: 2 puff Documented by: Divalproex Sodium (Divalproex Sodium 500 Mg Tablet.) 500 mg PO BEDTIME [facility] Last Admin: 11/25/21 20:44 Dose: 500 mg Documented by: Divalproex Sodium (Divalproex Sodium 250 Mg Tablet.) 250 mg PO BEDTIME [facility] Last Admin: 11/25/21 20:43 Dose: 250 mg Documented by: Docusate Sodium (Docusate Sodium 100 Mg Capsule) 100 mg PO BID PRN PRN Reason: constipation Last Admin: 11/18/21 14:18 Dose: 100 mg Documented by: Fluticasone Propionate (Fluticasone Propionate Nasal 16 Gm [place]) 1 spray NOSTRIL-B BID [facility] Last Admin: 11/26/21 09:53 Dose: 1 spray Documented by: Hydroxyzine HCl (Hydroxyzine Hcl 25 Mg Tablet) 25 mg PO Q6H PRN PRN Reason: Anxiety Last Admin: 11/22/21 01:58 Dose: 25 mg Documented by: Ibuprofen (Ibuprofen 600 Mg Tablet) 600 mg PO Q8H PRN PRN Reason: mod-severe pain, fever Last Admin: 11/25/21 17:05 Dose: 600 mg Documented by: Lactulose (Lactulose 20 Gm/30 Ml Solution) 20 gm PO BID PRN PRN Reason: constipation Last Admin: 11/24/21 21:49 Dose: 20 gm Documented by: Loperamide HCl (Loperamide Hcl 2 Mg Capsule) 2 mg PO Q6H PRN PRN Reason: diarrhea Loratadine (Loratadine 10 Mg Tablet) 10 mg PO DAILY [facility] Last Admin: 11/26/21 09:46 Dose: 10 mg Documented by: Magnesium Hydroxide (Milk Of Magnesia 30 Ml Oral.Susp) 30 ml PO DAILY PRN PRN Reason: Constipation Last Admin: 11/24/21 21:49 Dose: 30 ml Documented by: Metformin HCl (Metformin Hcl 500 Mg Tablet) 500 mg PO BIDWM [facility] Last Admin: 11/26/21 16:49 Dose: 500 mg Documented by: Montelukast Sodium (Montelukast Sodium 10 Mg Tablet) 10 mg PO BEDTIME [facility] Last Admin: 11/25/21 20:42 Dose: 10 mg Documented by: Multivitamins/Vitamin C (Multivitamin Tablet) 1 tab PO DAILY [facility] Last Admin: 11/26/21 09:46 Dose: 1 tab Documented by: Olanzapine (Olanzapine 10 Mg Tablet) 20 mg PO BEDTIME [facility] Last Admin: 11/25/21 20:44 Dose: 20 mg Documented by: Omeprazole (Omeprazole 20 Mg Capsule.Dr) 20 mg PO DAILY@0630 [facility] Last Admin: 11/26/21 06:35 Dose: 20 mg Documented by: Ondansetron HCl (Ondansetron Odt 8 Mg Tab.Rapdis) 8 mg TRANSLINGU Q8H PRN PRN Reason: Nausea Last Admin: 11/23/21 08:40 Dose: 8 mg Documented by: Oxycodone HCl (Oxycodone Hcl Er 10 Mg Tab.Er.12h) 10 mg PO BID [facility] Last Admin: 11/26/21 09:46 Dose: 10 mg Documented by: Oxycodone HCl (Oxycodone Hcl Immed Release 5 Mg Tablet) 10 mg PO Q4H PRN PRN Reason: Pain, Mild (Pain Scale 1-3) Last Admin: 11/26/21 16:49 Dose: 10 mg Documented by: Polyethylene Glycol (Polyethylene Glycol 3350 17 Gm Powd.Pack) 17 gm PO BID [facility] Last Admin: 11/26/21 09:53 Dose: 17 gm Documented by: Potassium Chloride (Potassium Chloride Er 10 Meq Capsule.Er) 10 meq PO Q48H [facility] Last Admin: 11/24/21 21:51 Dose: 10 meq Documented by: Prochlorperazine Maleate (Prochlorperazine Maleate 5 Mg Tablet) 5 mg PO TID PRN PRN Reason: nausea, vomiting Quetiapine Fumarate (Quetiapine Fumarate 50 Mg Tablet) 50 mg PO BEDTIME [facility] Last Admin: 11/25/21 20:45 Dose: 50 mg Documented by: Quetiapine Fumarate (Quetiapine Fumarate 50 Mg Tablet) 50 mg PO BID PRN PRN Reason: agitation, anxiety Last Admin: 11/22/21 05:37 Dose: 50 mg Documented by: Senna (Sennosides 8.6 Mg Tablet) 17.2 mg PO BID [facility] Last Admin: 11/26/21 09:46 Dose: 17.2 mg Documented by: Simethicone (Simethicone 80 Mg Tab.Chew) 80 mg PO QIDWMHS PRN PRN Reason: gas Sodium Biphosphate/Sodium Phosphate (Sodium Phosphate,[place]-Dibasic 133 Ml Enema) 133 ml [place] ONCE PRN PRN Reason: constipation Tamsulosin HCl (Tamsulosin Hcl 0.4 Mg Capsule) 0.8 mg PO BEDTIME [facility] Last Admin: 11/25/21 20:43 Dose: 0.8 mg Documented by: Trazodone HCl (Trazodone Hcl 50 Mg Tablet) 50 mg PO BEDTIME PRN PRN Reason: Insomnia Last Admin: 11/25/21 00:25 Dose: 50 mg Documented by: Allergies Allergies Allergy/AdvReac Type Severity Reaction Status Date / Time clozapine [From Clozaril] Allergy Unknown decreased Verified 11/16/21 19:39 WBC haloperidol [From Haldol] Allergy Unknown unknown Verified 11/16/21 19:36 cat dander Allergy Unknown Verified 11/16/21 21:31 house dust Allergy Unknown Verified 11/16/21 21:31 Phenothiazines Allergy Unknown Verified 11/16/21 21:31 wool Allergy Unknown Verified 11/16/21 21:31 Assessment & Plan Assessment & Plan (1) Urinary retention with incomplete bladder emptying: Status: Acute Code(s): R33.9 - Retention of urine, unspecified Plan The patient is a 76-year-old female with a long history of schizoaffective disorder and endometrial cancer stage IV, terminal admitted from [facility] for a suicidal attempt by overdose of Tylenol but it seems that it was impulsive due to anger at her assisted living facility. Plan Continue same medications, this moment at baseline Waiting for placement I spent minutes with the patient and/or on the patient floor today, greater than?50% of which was spent counseling/coordinating care. Reason for contiued inpatient stay Substantial Risk for: inability to function, rapid decompensation and med/psych decompensation
[2021-11-26 18:00] VITALS: BP 132/59; PULSE 73; RESP 17; TEMP 36.8; O2SAT 95
[2021-11-26] MEDS: Sulfamethox/Trimeth 800/160 TABLET 1 TAB PO (18:14)
[2021-11-26] MEDS: Ibuprofen 600 MG TABLET PO (18:16)
[2021-11-26] MEDS: Prochlorperazine Maleate 5 MG TABLET PO (18:16)
[2021-11-26] MEDS: OLANZapine 10 MG TABLET 20 MG PO (20:24)
[2021-11-26] MEDS: QUEtiapine Fumarate 50 MG TABLET PO (20:24)
[2021-11-26] MEDS: Tamsulosin HCL 0.4 MG CAPSULE 0.8 MG PO (20:24)
[2021-11-26] MEDS: Montelukast Sodium 10 MG TABLET PO (20:25)
[2021-11-26] MEDS: Divalproex Sodium 500 MG TABLET.DR PO (20:25)
[2021-11-26] MEDS: Divalproex Sodium 250 MG TABLET.DR PO (20:25)
[2021-11-26] MEDS: traZODone HCL 50 MG TABLET PO (20:31)
[2021-11-26] MEDS: Albuterol Sulfate 90 MCG 8 GM INHALER 2 PUFF INHALE (20:38)
[2021-11-27] MEDS: traZODone HCL 50 MG TABLET PO ×2 (00:30→20:35)
[2021-11-27] MEDS: hydrOXYzine HCL 25 MG TABLET PO (00:30)
[2021-11-27] MEDS: Ibuprofen 600 MG TABLET PO ×3 (00:31→20:36)
[2021-11-27] MEDS: oxyCODONE HCl Immed Release 5 MG TABLET 10 MG PO ×4 (04:36→20:38)
[2021-11-27 06:00] VITALS: BP 98/62; PULSE 75; RESP 14; TEMP 37.4; O2SAT 96
[2021-11-27] MEDS: Budesonide 180 MCG AER.POW.BA 2 PUFF INHALE (08:48)
[2021-11-27] MEDS: Fluticasone Propionate Nasal 16 GM SPRAY 1 SPRAY NOSTRIL-B ×2 (08:48→20:46)
[2021-11-27] MEDS: Sennosides 8.6 MG TABLET 17.2 MG PO ×2 (08:49→20:35)
[2021-11-27] MEDS: Loratadine 10 MG TABLET PO (08:50)
[2021-11-27] MEDS: metFORMIN HCl 500 MG TABLET PO ×2 (08:50→16:14)
[2021-11-27] MEDS: amLODIPine Besylate 2.5 MG TABLET PO (08:50)
[2021-11-27] MEDS: Aspirin 81 MG TAB.CHEW PO (08:50)
[2021-11-27] MEDS: Multivitamin TABLET 1 TAB PO (08:50)
[2021-11-27] MEDS: polyethylene glycoL 3350 17 GM POWD.PACK PO (08:51)
[2021-11-27] MEDS: oxyCODONE HCl ER 10 MG TAB.ER.12H PO ×2 (08:51→20:36)
--- NOTE | 2021-11-27 09:36 | P.PNPSI_ITS ---
Subjective Subjective Date of Service: 11/27/21 Reason For Visit: schizoaffective disorder,bipolar type Subjective Notes: Conditional Voluntary Interim History: The nursing staff reported that the patient has been asking for all her PRNs, she was not aware that her Klonopin but not given and she asked for it. On interview she was focused on her medications no new symptoms no evidence of exacerbation of psychosis. Mental Status Exam Mental Status Exam Patient Appearance: Well Grooomed Patient Orientation: Person Level of Consciousness: Awake Patient Behavior: Cooperative Mood Description: Constricted Affect Description: Constricted Patient Cognition Impaired: Yes Ability to Follow Directions: Good Speech Pattern: Clear Hallucinations: None Delusions: Paranoid Ideation and Grandiose Thought Process: Linear Thought Content: positive for Circumstantial Judgement: Fair Diagnostics Vital Signs (24Hr): Vital Signs - 24 hr 11/26/21 18:00 11/27/21 06:00 Temperature 98.3 F 99.4 F Pulse Rate 73 75 Respiratory Rate 17 14 Blood Pressure 132/59 L 98/62 Pulse Oximetry 95 96 BMI result [place] 4 Body Mass Index [place] 4 26.6 [place] 4 [place] 4 Labs Results: 11/24/21 08:26 11/25/21 07:54 Imaging Radiology Impressions: ITS Impressions Venous Duplex 11/25/21 11:03 IMPRESSION: No DVT demonstrated in the right lower extremity. Medications Medications Current Medications Acetaminophen (Acetaminophen 325 Mg Tablet) 650 mg PO Q6H PRN PRN Reason: Headache/Pain Mild Scale (1-3) Al Hydroxide/Mg Hydroxide (Magnesium Hydrox/Alum Hydrox 30 Ml Oral.Susp) 30 ml PO Q6H PRN PRN Reason: Heartburn/Nausea Albuterol Sulfate (Albuterol Sulfate 90 Mcg 8 Gm Inhaler) 2 puff INHALE Q6H PRN PRN Reason: asthma Last Admin: 11/26/21 20:38 Dose: 2 puff Documented by: Amlodipine Besylate (Amlodipine Besylate 2.5 Mg Tablet) 2.5 mg PO DAILY [facility]; Protocol Last Admin: 11/27/21 08:50 Dose: 2.5 mg Documented by: Aspirin (Aspirin 81 Mg Tab.Chew) 81 mg PO DAILY [facility] Last Admin: 11/27/21 08:50 Dose: 81 mg Documented by: Bisacodyl (Bisacodyl 5 Mg Tablet.Dr) 10 mg PO DAILY PRN PRN Reason: Constipation Budesonide (Budesonide 180 Mcg Aer.Pow.Ba) 2 puff INHALE RBID [facility] Last Admin: 11/27/21 08:48 Dose: 2 puff Documented by: Divalproex Sodium (Divalproex Sodium 500 Mg Tablet.) 500 mg PO BEDTIME [facility] Last Admin: 11/26/21 20:25 Dose: 500 mg Documented by: Divalproex Sodium (Divalproex Sodium 250 Mg Tablet.) 250 mg PO BEDTIME [facility] Last Admin: 11/26/21 20:25 Dose: 250 mg Documented by: Docusate Sodium (Docusate Sodium 100 Mg Capsule) 100 mg PO BID PRN PRN Reason: constipation Last Admin: 11/18/21 14:18 Dose: 100 mg Documented by: Fluticasone Propionate (Fluticasone Propionate Nasal 16 Gm [place]) 1 spray NOS TRIL-B BID [facility] Last Admin: 11/27/21 08:48 Dose: 1 spray Documented by: Hydroxyzine HCl (Hydroxyzine Hcl 25 Mg Tablet) 25 mg PO Q6H PRN PRN Reason: Anxiety Last Admin: 11/27/21 00:30 Dose: 25 mg Documented by: Ibuprofen (Ibuprofen 600 Mg Tablet) 600 mg PO Q8H PRN PRN Reason: mod-severe pain, fever Last Admin: 11/27/21 08:49 Dose: 600 mg Documented by: Lactulose (Lactulose 20 Gm/30 Ml Solution) 20 gm PO BID PRN PRN Reason: constipation Last Admin: 11/24/21 21:49 Dose: 20 gm Documented by: Loperamide HCl (Loperamide Hcl 2 Mg Capsule) 2 mg PO Q6H PRN PRN Reason: diarrhea Loratadine (Loratadine 10 Mg Tablet) 10 mg PO DAILY [facility] Last Admin: 11/27/21 08:50 Dose: 10 mg Documented by: Magnesium Hydroxide (Milk Of Magnesia 30 Ml Oral.Susp) 30 ml PO DAILY PRN PRN Reason: Constipation Last Admin: 11/24/21 21:49 Dose: 30 ml Documented by: Metformin HCl (Metformin Hcl 500 Mg Tablet) 500 mg PO BIDWM [facility] Last Admin: 11/27/21 08:50 Dose: 500 mg Documented by: Montelukast Sodium (Montelukast Sodium 10 Mg Tablet) 10 mg PO BEDTIME [facility] Last Admin: 11/26/21 20:25 Dose: 10 mg Documented by: Multivitamins/Vitamin C (Multivitamin Tablet) 1 tab PO DAILY [facility] Last Admin: 11/27/21 08:50 Dose: 1 tab Documented by: Olanzapine (Olanzapine 10 Mg Tablet) 20 mg PO BEDTIME [facility] Last Admin: 11/26/21 20:24 Dose: 20 mg Documented by: Omeprazole (Omeprazole 20 Mg Capsule.Dr) 20 mg PO DAILY@0630 [facility] Last Admin: 11/27/21 05:39 Dose: Not Given Documented by: Ondansetron HCl (Ondansetron Odt 8 Mg Tab.Rapdis) 8 mg TRANSLINGU Q8H PRN PRN Reason: Nausea Last Admin: 11/23/21 08:40 Dose: 8 mg Documented by: Oxycodone HCl (Oxycodone Hcl Er 10 Mg Tab.Er.12h) 10 mg PO BID [facility] Last Admin: 11/27/21 08:51 Dose: 10 mg Documented by: Oxycodone HCl (Oxycodone Hcl Immed Release 5 Mg Tablet) 10 mg PO Q4H PRN PRN Reason: Pain, Mild (Pain Scale 1-3) Last Admin: 11/27/21 08:48 Dose: 10 mg Documented by: Polyethylene Glycol (Polyethylene Glycol 3350 17 Gm Powd.Pack) 17 gm PO BID [facility] Last Admin: 11/27/21 08:51 Dose: 17 gm Documented by: Potassium Chloride (Potassium Chloride Er 10 Meq Capsule.Er) 10 meq PO Q48H [facility] Last Admin: 11/26/21 20:24 Dose: 10 meq Documented by: Prochlorperazine Maleate (Prochlorperazine Maleate 5 Mg Tablet) 5 mg PO TID PRN PRN Reason: nausea, vomiting Last Admin: 11/26/21 18:16 Dose: 5 mg Documented by: Quetiapine Fumarate (Quetiapine Fumarate 50 Mg Tablet) 50 mg PO BEDTIME [facility] Last Admin: 11/26/21 20:24 Dose: 50 mg Documented by: Quetiapine Fumarate (Quetiapine Fumarate 50 Mg Tablet) 50 mg PO BID PRN PRN Reason: agitation, anxiety Last Admin: 11/22/21 05:37 Dose: 50 mg Documented by: Senna (Sennosides 8.6 Mg Tablet) 17.2 mg PO BID [facility] Last Admin: 11/27/21 08:49 Dose: 17.2 mg Documented by: Simethicone (Simethicone 80 Mg Tab.Chew) 80 mg PO QIDWMHS PRN PRN Reason: gas Sodium Biphosphate/Sodium Phosphate (Sodium Phosphate,[place]-Dibasic 133 Ml Enema) 133 ml [place] ONCE PRN PRN Reason: constipation Tamsulosin HCl (Tamsulosin Hcl 0.4 Mg Capsule) 0.8 mg PO BEDTIME [facility] Last Admin: 11/26/21 20:24 Dose: 0.8 mg Documented by: Trazodone HCl (Trazodone Hcl 50 Mg Tablet) 50 mg PO BEDTIME PRN PRN Reason: Insomnia Last Admin: 11/27/21 00:30 Dose: 50 mg Documented by: Trimethoprim/Sulfamethoxazole (Sulfamethox/Trimeth 800/160 Tablet) 1 tab PO Q12H [facility] Last Admin: 11/27/21 05:40 Dose: Not Given Documented by: Allergies Allergies Allergy/AdvReac Type Severity Reaction Status Date / Time clozapine [From Allergy Unknown decreased Verified 11/16/21 19:39 Clozaril] WBC haloperidol [From Allergy Unknown unknown Verified 11/16/21 19:36 Haldol] cat dander Allergy Unknown Verified 11/16/21 21:31 house dust Allergy Unknown Verified 11/16/21 21:31 Phenothiazines Allergy Unknown Verified 11/16/21 21:31 wool Allergy Unknown Verified 11/16/21 21:31 Assessment & Plan Assessment & Plan (1) Urinary retention with incomplete bladder emptying: Status: Acute Code(s): R33.9 - Retention of urine, unspecified Plan The patient is a 76-year-old female with a long history of schizoaffective disorder and endometrial cancer stage IV, terminal admitted from [facility] for a suicidal attempt by overdose of Tylenol but it seems that it was impulsive due to anger at her assisted living facility. Plan Continue same medications, this moment at baseline Waiting for placement I spent minutes with the patient and/or on the patient floor today, greater than?50% of which was spent counseling/coordinating care. Reason for contiued inpatient stay Substantial Risk for: inability to function, rapid decompensation and med/psych decompensation
[2021-11-27 18:00] VITALS: BP 150/64; PULSE 80; RESP 16; TEMP 36.5; O2SAT 96
[2021-11-27] MEDS: Tamsulosin HCL 0.4 MG CAPSULE 0.8 MG PO (20:35)
[2021-11-27] MEDS: Montelukast Sodium 10 MG TABLET PO (20:35)
[2021-11-27] MEDS: Sulfamethox/Trimeth 800/160 TABLET 1 TAB PO (20:35)
[2021-11-27] MEDS: OLANZapine 10 MG TABLET 20 MG PO (20:35)
[2021-11-27] MEDS: Divalproex Sodium 250 MG TABLET.DR PO (20:36)
[2021-11-27] MEDS: QUEtiapine Fumarate 50 MG TABLET PO (20:37)
[2021-11-27] MEDS: clonazePAM 0.5 MG TABLET 1.5 MG PO (20:37)
[2021-11-27] MEDS: Divalproex Sodium 500 MG TABLET.DR PO (20:37)
[2021-11-27] MEDS: Albuterol Sulfate 90 MCG 8 GM INHALER 2 PUFF INHALE (20:46)
[2021-11-28] MEDS: oxyCODONE HCl Immed Release 5 MG TABLET 10 MG PO ×4 (03:25→21:32)
[2021-11-28] MEDS: Omeprazole 20 MG CAPSULE.DR PO (06:16)
[2021-11-28] MEDS: Acetaminophen 325 MG TABLET 650 MG PO (06:19)
[2021-11-28 07:30] VITALS: BP 78/61; PULSE 85; RESP 14; TEMP 36; O2SAT 94
--- NOTE | 2021-11-28 08:42 | P.PNPSI_ITS ---
Subjective Subjective Date of Service: 11/28/21 Reason For Visit: schizoaffective disorder,bipolar type Subjective Notes: Conditional Voluntary Interim History: The nursing staff reported that the patient looks better than Monday but she is angry at staff since she wants her medications in a special schedule. She has refused bladder scans but she was able to void by herself. On interview, she denied new symptoms besides lymphedema. Mental Status Exam Mental Status Exam Patient Appearance: Well Grooomed and Appropriate Patient Orientation: Person Level of Consciousness: Awake Patient Behavior: Appropriate Mood Description: Suspicious Affect Description: Constricted Ability to Follow Directions: Good Speech Pattern: Clear Hallucinations: None Delusions: Paranoid Ideation and Grandiose Thought Process: Linear Thought Content: positive for Circumstantial Judgement: Fair Diagnostics Vital Signs (24Hr): Vital Signs - 24 hr 11/27/21 18:00 Temperature 97.7 F Pulse Rate 80 Respiratory Rate 16 Blood Pressure 150/64 H Pulse Oximetry 96 BMI result [place] 4 Body Mass Index [place] 4 26.6 [place] 4 [place] 4 Labs Results: 11/24/21 08:26 11/25/21 07:54 Imaging Radiology Impressions: ITS Impressions Venous Duplex 11/25/21 11:03 IMPRESSION: No DVT demonstrated in the right lower extremity. Medications Medications Current Medications Acetaminophen (Acetaminophen 325 Mg Tablet) 650 mg PO Q6H PRN PRN Reason: Headache/Pain Mild Scale (1-3) Last Admin: 11/28/21 06:19 Dose: 650 mg Documented by: Al Hydroxide/Mg Hydroxide (Magnesium Hydrox/Alum Hydrox 30 Ml Oral.Susp) 30 ml PO Q6H PRN PRN Reason: Heartburn/Nausea Albuterol Sulfate (Albuterol Sulfate 90 Mcg 8 Gm Inhaler) 2 puff INHALE Q6H PRN PRN Reason: asthma Last Admin: 11/27/21 20:46 Dose: 2 puff Documented by: Amlodipine Besylate (Amlodipine Besylate 2.5 Mg Tablet) 2.5 mg PO DAILY [facility]; Protocol Last Admin: 11/27/21 08:50 Dose: 2.5 mg Documented by: Aspirin (Aspirin 81 Mg Tab.Chew) 81 mg PO DAILY [facility] Last Admin: 11/27/21 08:50 Dose: 81 mg Documented by: Bisacodyl (Bisacodyl 5 Mg Tablet.Dr) 10 mg PO DAILY PRN PRN Reason: Constipation Budesonide (Budesonide 180 Mcg Aer.Pow.Ba) 2 puff INHALE RBID [facility] Last Admin: 11/27/21 20:46 Dose: Not Given Documented by: Clonazepam (Clonazepam 0.5 Mg Tablet) 1.5 mg PO BID [facility] Last Admin: 11/27/21 20:37 Dose: 1.5 mg Documented by: Clonazepam (Clonazepam 0.5 Mg Tablet) 1.5 mg PO DAILY PRN PRN Reason: Anxiety Divalproex Sodium (Divalproex Sodium 500 Mg Tablet.Dr) 500 mg PO BEDTIME [facility] Last Admin: 11/27/21 20:37 Dose: 500 mg Documented by: Divalproex Sodium (Divalproex Sodium 250 Mg Tablet.) 250 mg PO BEDTIME [facility] Last Admin: 11/27/21 20:36 Dose: 250 mg Documented by: Docusate Sodium (Docusate Sodium 100 Mg Capsule) 100 mg PO BID PRN PRN Reason: constipation Last Admin: 11/18/21 14:18 Dose: 100 mg Documented by: Fluticasone Propionate (Fluticasone Propionate Nasal 16 Gm [place]) 1 spray NOSTRIL-B BID [facility] Last Admin: 11/27/21 20:46 Dose: 1 spray Documented by: Hydroxyzine HCl (Hydroxyzine Hcl 25 Mg Tablet) 25 mg PO Q6H PRN PRN Reason: Anxiety Last Admin: 11/27/21 00:30 Dose: 25 mg Documented by: Ibuprofen (Ibuprofen 600 Mg Tablet) 600 mg PO Q8H PRN PRN Reason: mod-severe pain, fever Last Admin: 11/27/21 20:36 Dose: 600 mg Documented by: Lactulose (Lactulose 20 Gm/30 Ml Solution) 20 gm PO BID PRN PRN Reason: constipation Last Admin: 11/24/21 21:49 Dose: 20 gm Documented by: Loperamide HCl (Loperamide Hcl 2 Mg Capsule) 2 mg PO Q6H PRN PRN Reason: diarrhea Loratadine (Loratadine 10 Mg Tablet) 10 mg PO DAILY [facility] Last Admin: 11/27/21 08:50 Dose: 10 mg Documented by: Magnesium Hydroxide (Milk Of Magnesia 30 Ml Oral.Susp) 30 ml PO DAILY PRN PRN Reason: Constipation Last Admin: 11/24/21 21:49 Dose: 30 ml Documented by: Metformin HCl (Metformin Hcl 500 Mg Tablet) 500 mg PO BIDWM [facility] Last Admin: 11/27/21 16:14 Dose: 500 mg Documented by: Montelukast Sodium (Montelukast Sodium 10 Mg Tablet) 10 mg PO BEDTIME [facility] Last Admin: 11/27/21 20:35 Dose: 10 mg Documented by: Multivitamins/Vitamin C (Multivitamin Tablet) 1 tab PO DAILY [facility] Last Admin: 11/27/21 08:50 Dose: 1 tab Documented by: Olanzapine (Olanzapine 10 Mg Tablet) 20 mg PO BEDTIME [facility] Last Admin: 11/27/21 20:35 Dose: 20 mg Documented by: Omeprazole (Omeprazole 20 Mg Capsule.Dr) 20 mg PO DAILY@0630 [facility] Last Admin: 11/28/21 06:16 Dose: 20 mg Documented by: Ondansetron HCl (Ondansetron Odt 8 Mg Tab.Rapdis) 8 mg TRANSLINGU Q8H PRN PRN Reason: Nausea Last Admin: 11/23/21 08:40 Dose: 8 mg Documented by: Oxycodone HCl (Oxycodone Hcl Immed Release 5 Mg Tablet) 10 mg PO Q4H PRN PRN Reason: Pain, Mild (Pain Scale 1-3) Last Admin: 11/28/21 03:25 Dose: 10 mg Documented by: Oxycodone HCl (Oxycodone Hcl Er 10 Mg Tab.Er.12h) 10 mg PO BID [facility] Polyethylene Glycol (Polyethylene Glycol 3350 17 Gm Powd.Pack) 17 gm PO BID [facility] Last Admin: 11/27/21 20:57 Dose: Not Given Documented by: Potassium Chloride (Potassium Chloride Er 10 Meq Capsule.Er) 10 meq PO Q48H [facility] Last Admin: 11/26/21 20:24 Dose: 10 meq Documented by: Prochlorperazine Maleate (Prochlorperazine Maleate 5 Mg Tablet) 5 mg PO TID PRN PRN Reason: nausea, vomiting Last Admin: 11/26/21 18:16 Dose: 5 mg Documented by: Quetiapine Fumarate (Quetiapine Fumarate 50 Mg Tablet) 50 mg PO BEDTIME [facility] Last Admin: 11/27/21 20:37 Dose: 50 mg Documented by: Quetiapine Fumarate (Quetiapine Fumarate 50 Mg Tablet) 50 mg PO BID PRN PRN Reason: agitation, anxiety Last Admin: 11/22/21 05:37 Dose: 50 mg Documented by: Senna (Sennosides 8.6 Mg Tablet) 17.2 mg PO BID [facility] Last Admin: 11/27/21 20:35 Dose: 17.2 mg Documented by: Simethicone (Simethicone 80 Mg Tab.Chew) 80 mg PO QIDWMHS PRN PRN Reason: gas Sodium Biphosphate/Sodium Phosphate (Sodium Phosphate,[place]-Dibasic 133 Ml Enema) 133 ml [place] ONCE PRN PRN Reason: constipation Tamsulosin HCl (Tamsulosin Hcl 0.4 Mg Capsule) 0.8 mg PO BEDTIME [facility] Last Admin: 11/27/21 20:35 Dose: 0.8 mg Documented by: Trazodone HCl (Trazodone Hcl 50 Mg Tablet) 50 mg PO BEDTIME PRN PRN Reason: Insomnia Last Admin: 11/27/21 20:35 Dose: 50 mg Documented by: Trimethoprim/Sulfamethoxazole (Sulfamethox/Trimeth 800/160 Tablet) 1 tab PO Q12H [facility] Last Admin: 11/27/21 20:35 Dose: 1 tab Documented by: Allergies Allergies Allergy/AdvReac Type Severity Reaction Status Date / Time clozapine [From Allergy Unknown decreased Verified 11/16/21 19:39 Clozaril] WBC haloperidol [From Allergy Unknown unknown Verified 11/16/21 19:36 Haldol] cat dander Allergy Unknown Verified 11/16/21 21:31 house dust Allergy Unknown Verified 11/16/21 21:31 Phenothiazines Allergy Unknown Verified 11/16/21 21:31 wool Allergy Unknown Verified 11/16/21 21:31 Assessment & Plan Assessment & Plan (1) Urinary retention with incomplete bladder emptying: Status: Acute Code(s): R33.9 - Retention of urine, unspecified Plan The patient is a 76-year-old female with a long history of schizoaffective disorder and endometrial cancer stage IV, terminal admitted from [facility] for a suicidal attempt by overdose of Tylenol but it seems that it was impulsive due to anger at her assisted living facility. Plan Continue same medications, this moment at baseline Waiting for placement I spent minutes with the patient and/or on the patient floor today, greater than?50% of which was spent counseling/coordinating care. Reason for contiued inpatient stay Substantial Risk for: inability to function, rapid decompensation and med/psych decompensation
[2021-11-28] MEDS: Ibuprofen 600 MG TABLET PO (08:47)
[2021-11-28] MEDS: Sulfamethox/Trimeth 800/160 TABLET 1 TAB PO ×2 (08:47→17:16)
[2021-11-28] MEDS: amLODIPine Besylate 2.5 MG TABLET PO (08:50)
[2021-11-28] MEDS: metFORMIN HCl 500 MG TABLET PO ×2 (08:50→17:16)
[2021-11-28] MEDS: Multivitamin TABLET 1 TAB PO (08:50)
[2021-11-28] MEDS: Sennosides 8.6 MG TABLET 17.2 MG PO ×2 (08:50→21:10)
[2021-11-28] MEDS: Loratadine 10 MG TABLET PO (08:50)
[2021-11-28] MEDS: Albuterol Sulfate 90 MCG 8 GM INHALER 2 PUFF INHALE ×2 (08:51→21:31)
[2021-11-28] MEDS: Fluticasone Propionate Nasal 16 GM SPRAY 1 SPRAY NOSTRIL-B ×2 (08:51→22:20)
--- NOTE | 2021-11-28 18:25 | PC.NURSE ---
Patient very agitated this shift. This morning she slapped a bottle of water out of TW hand because I had opened it. Patient has reddened area on great R toe. Consult ordered for wound nurse. Patient upset because as she states, I want a doctor not a nurse and not a fake doctor. TW explained she would probably have a wound consult tomorrow. Patient refused to allow TW to check toe. Patient also believes the nurses have changed the clocks so she won't get her antibiotic on time because we want her to . Patient has R leg lymphedema 2-3+. Walking with a steady gait without walker.
[2021-11-28 20:16] VITALS: BP 103/59; PULSE 72; RESP 18; TEMP 37.1; O2SAT 72
[2021-11-28] MEDS: polyethylene glycoL 3350 17 GM POWD.PACK PO (21:11)
[2021-11-28] MEDS: OLANZapine 10 MG TABLET 20 MG PO (21:13)
[2021-11-28] MEDS: Budesonide 180 MCG AER.POW.BA 2 PUFF INHALE (21:13)
[2021-11-28] MEDS: QUEtiapine Fumarate 50 MG TABLET PO (21:15)
[2021-11-28] MEDS: Tamsulosin HCL 0.4 MG CAPSULE 0.8 MG PO (21:15)
[2021-11-28] MEDS: Divalproex Sodium 250 MG TABLET.DR PO (21:15)
[2021-11-28] MEDS: Montelukast Sodium 10 MG TABLET PO (21:15)
[2021-11-28] MEDS: Divalproex Sodium 500 MG TABLET.DR PO (21:15)
[2021-11-28] MEDS: oxyCODONE HCl ER 10 MG TAB.ER.12H PO (21:16)
[2021-11-28] MEDS: clonazePAM 0.5 MG TABLET 1.5 MG PO (21:16)
--- NOTE | 2021-11-29 01:41 | PC.NURSE ---
Patient went to the bathroom and urinated approximately 200 ml and bladder scan for 999ml.Patient aseptically straight cath. for 900 ml.of clear robert yellow urine w/ no odor.Procedure tolerated well by patient.
[2021-11-29 06:00] VITALS: BP 124/70; PULSE 84; RESP 16; TEMP 36.4; O2SAT 90
[2021-11-29] MEDS: Sulfamethox/Trimeth 800/160 TABLET 1 TAB PO ×2 (06:20→19:49)
[2021-11-29] MEDS: Omeprazole 20 MG CAPSULE.DR PO (06:20)
[2021-11-29] MEDS: amLODIPine Besylate 2.5 MG TABLET PO (10:16)
[2021-11-29] MEDS: Aspirin 81 MG TAB.CHEW PO (10:17)
[2021-11-29] MEDS: metFORMIN HCl 500 MG TABLET PO (10:17)
[2021-11-29] MEDS: Sennosides 8.6 MG TABLET 17.2 MG PO ×2 (10:17→20:58)
[2021-11-29] MEDS: Multivitamin TABLET 1 TAB PO (10:18)
[2021-11-29] MEDS: Loratadine 10 MG TABLET PO (10:18)
[2021-11-29] MEDS: Fluticasone Propionate Nasal 16 GM SPRAY 1 SPRAY NOSTRIL-B ×2 (10:18→20:52)
[2021-11-29] MEDS: oxyCODONE HCl Immed Release 5 MG TABLET 10 MG PO ×2 (15:01→19:44)
--- NOTE | 2021-11-29 15:05 | P.PNPSI_ITS ---
Subjective Subjective Date of Service: 11/29/21 Reason For Visit: schizoaffective disorder,bipolar type Subjective Notes: Conditional Voluntary Interim History: The nursing staff reports the patient has been using all her PRNs and sometimes she refuses to take medications when she is sleepy. Today on interview, the patient was very angry since she stated that she did not receive her Bactrim but apparently she refuse it to the nurse. She also reports that she has an injury on her right toe and wound care will take care of it. Mental Status Exam Mental Status Exam Patient Appearance: Well Grooomed Patient Orientation: Person Level of Consciousness: Awake Patient Behavior: Talkative, Cooperative and Restless Mood Description: Apprehensive Affect Description: Constricted Patient Cognition Impaired: No Ability to Follow Directions: Fair Speech Pattern: Clear and Rambling Delusions: Paranoid Ideation and Grandiose Thought Process: Distracted and Linear Thought Content: positive for [place] and positive for Linear Judgement: Fair Diagnostics Vital Signs (24Hr): Vital Signs - 24 hr 11/28/21 20:16 11/29/21 06:00 Temperature 98.7 F 97.6 F Pulse Rate 72 84 Respiratory Rate 18 16 Blood Pressure 103/59 L 124/70 Pulse Oximetry 72 L 90 L BMI result [place] 4 Body Mass Index [place] 4 26.6 [place] 4 [place] 4 Labs Results: 11/24/21 08:26 11/25/21 07:54 Imaging Radiology Impressions: ITS Impressions Venous Duplex 11/25/21 11:03 IMPRESSION: No DVT demonstrated in the right lower extremity. Medications Medications Current Medications Acetaminophen (Acetaminophen 325 Mg Tablet) 650 mg PO Q6H PRN PRN Reason: Headache/Pain Mild Scale (1-3) Last Admin: 11/28/21 06:19 Dose: 650 mg Documented by: Al Hydroxide/Mg Hydroxide (Magnesium Hydrox/Alum Hydrox 30 Ml Oral.Susp) 30 ml PO Q6H PRN PRN Reason: Heartburn/Nausea Albuterol Sulfate (Albuterol Sulfate 90 Mcg 8 Gm Inhaler) 2 puff INHALE Q6H PRN PRN Reason: asthma Last Admin: 11/28/21 21:31 Dose: 2 puff Documented by: Amlodipine Besylate (Amlodipine Besylate 2.5 Mg Tablet) 2.5 mg PO DAILY [facility]; Protocol Last Admin: 11/29/21 10:16 Dose: 2.5 mg Documented by: Aspirin (Aspirin 81 Mg Tab.Chew) 81 mg PO DAILY [facility] Last Admin: 11/29/21 10:17 Dose: 81 mg Documented by: Bisacodyl (Bisacodyl 5 Mg Tablet.) 10 mg PO DAILY PRN PRN Reason: Constipation Budesonide (Budesonide 180 Mcg Aer.Pow.Ba) 2 puff INHALE RBID [facility] Last Admin: 11/29/21 10:39 Dose: Not Given Documented by: Clonazepam (Clonazepam 0.5 Mg Tablet) 1.5 mg PO BID [facility] Last Admin: 11/29/21 10:40 Dose: Not Given Documented by: Clonazepam (Clonazepam 0.5 Mg Tablet) 1.5 mg PO DAILY PRN PRN Reason: Anxiety Divalproex Sodium (Divalproex Sodium 500 Mg Tablet.) 500 mg PO BEDTIME [facility] Last Admin: 11/28/21 21:15 Dose: 500 mg Documented by: Divalproex Sodium (Divalproex Sodium 250 Mg Tablet.) 250 mg PO BEDTIME [facility] Last Admin: 11/28/21 21:15 Dose: 250 mg Documented by: Docusate Sodium (Docusate Sodium 100 Mg Capsule) 100 mg PO BID PRN PRN Reason: constipation Last Admin: 11/18/21 14:18 Dose: 100 mg Documented by: Fluticasone Propionate (Fluticasone Propionate Nasal 16 Gm [place]) 1 spray NOSTRIL-B BID [facility] Last Admin: 11/29/21 10:18 Dose: 1 spray Documented by: Hydroxyzine HCl (Hydroxyzine Hcl 25 Mg Tablet) 25 mg PO Q6H PRN PRN Reason: Anxiety Last Admin: 11/27/21 00:30 Dose: 25 mg Documented by: Ibuprofen (Ibuprofen 600 Mg Tablet) 600 mg PO Q8H PRN PRN Reason: mod-severe pain, fever Last Admin: 11/28/21 08:47 Dose: 600 mg Documented by: Lactulose (Lactulose 20 Gm/30 Ml Solution) 20 gm PO BID PRN PRN Reason: constipation Last Admin: 11/24/21 21:49 Dose: 20 gm Documented by: Loperamide HCl (Loperamide Hcl 2 Mg Capsule) 2 mg PO Q6H PRN PRN Reason: diarrhea Loratadine (Loratadine 10 Mg Tablet) 10 mg PO DAILY [facility] Last Admin: 11/29/21 10:18 Dose: 10 mg Documented by: Magnesium Hydroxide (Milk Of Magnesia 30 Ml Oral.Susp) 30 ml PO DAILY PRN PRN Reason: Constipation Last Admin: 11/24/21 21:49 Dose: 30 ml Documented by: Metformin HCl (Metformin Hcl 500 Mg Tablet) 500 mg PO BIDWM [facility] Last Admin: 11/29/21 10:17 Dose: 500 mg Documented by: Montelukast Sodium (Montelukast Sodium 10 Mg Tablet) 10 mg PO BEDTIME [facility] Last Admin: 11/28/21 21:15 Dose: 10 mg Documented by: Multivitamins/Vitamin C (Multivitamin Tablet) 1 tab PO DAILY [facility] Last Admin: 11/29/21 10:18 Dose: 1 tab Documented by: Olanzapine (Olanzapine 10 Mg Tablet) 20 mg PO BEDTIME [facility] Last Admin: 11/28/21 21:13 Dose: 20 mg Documented by: Omeprazole (Omeprazole 20 Mg Capsule.Dr) 20 mg PO DAILY@0630 [facility] Last Admin: 11/29/21 06:20 Dose: 20 mg Documented by: Ondansetron HCl (Ondansetron Odt 8 Mg Tab.Rapdis) 8 mg TRANSLINGU Q8H PRN PRN Reason: Nausea Last Admin: 11/23/21 08:40 Dose: 8 mg Documented by: Oxycodone HCl (Oxycodone Hcl Immed Release 5 Mg Tablet) 10 mg PO Q4H PRN PRN Reason: Pain, Mild (Pain Scale 1-3) Last Admin: 11/29/21 15:01 Dose: 10 mg Documented by: Oxycodone HCl (Oxycodone Hcl Er 10 Mg Tab.Er.12h) 10 mg PO BID [facility] Last Admin: 11/29/21 10:40 Dose: Not Given Documented by: Polyethylene Glycol (Polyethylene Glycol 3350 17 Gm Powd.Pack) 17 gm PO BID [facility] Last Admin: 11/29/21 10:40 Dose: Not Given Documented by: Potassium Chloride (Potassium Chloride Er 10 Meq Capsule.Er) 10 meq PO Q48H [facility] Last Admin: 11/28/21 21:15 Dose: 10 meq Documented by: Prochlorperazine Maleate (Prochlorperazine Maleate 5 Mg Tablet) 5 mg PO TID PRN PRN Reason: nausea, vomiting Last Admin: 11/26/21 18:16 Dose: 5 mg Documented by: Quetiapine Fumarate (Quetiapine Fumarate 50 Mg Tablet) 50 mg PO BEDTIME [facility] Last Admin: 11/28/21 21:15 Dose: 50 mg Documented by: Quetiapine Fumarate (Quetiapine Fumarate 50 Mg Tablet) 50 mg PO BID PRN PRN Reason: agitation, anxiety Last Admin: 11/22/21 05:37 Dose: 50 mg Documented by: Senna (Sennosides 8.6 Mg Tablet) 17.2 mg PO BID [facility] Last Admin: 11/29/21 10:17 Dose: 17.2 mg Documented by: Simethicone (Simethicone 80 Mg Tab.Chew) 80 mg PO QIDWMHS PRN PRN Reason: gas Sodium Biphosphate/Sodium Phosphate (Sodium Phosphate,[place]-Dibasic 133 Ml Enema) 133 ml SC ONCE PRN PRN Reason: constipation Tamsulosin HCl (Tamsulosin Hcl 0.4 Mg Capsule) 0.8 mg PO BEDTIME [facility] Last Admin: 11/28/21 21:15 Dose: 0.8 mg Documented by: Trazodone HCl (Trazodone Hcl 50 Mg Tablet) 50 mg PO BEDTIME PRN PRN Reason: Insomnia Last Admin: 11/27/21 20:35 Dose: 50 mg Documented by: Trimethoprim/Sulfamethoxazole (Sulfamethox/Trimeth 800/160 Tablet) 1 tab PO Q12H [facility] Last Admin: 11/29/21 06:20 Dose: 1 tab Documented by: Allergies Allergies Allergy/AdvReac Type Severity Reaction Status Date / Time clozapine [From Allergy Unknown decreased Verified 11/16/21 19:39 Clozaril] WBC haloperidol [From Allergy Unknown unknown Verified 11/16/21 19:36 Haldol] cat dander Allergy Unknown Verified 11/16/21 21:31 house dust Allergy Unknown Verified 11/16/21 21:31 Phenothiazines Allergy Unknown Verified 11/16/21 21:31 wool Allergy Unknown Verified 11/16/21 21:31 Assessment & Plan Assessment & Plan (1) Urinary retention with incomplete bladder emptying: Status: Acute Code(s): R33.9 - Retention of urine, unspecified Plan The patient is a 76-year-old female with a long history of schizoaffective disorder and endometrial cancer stage IV, terminal admitted from [facility] for a suicidal attempt by overdose of Tylenol but it seems that it was impulsive due to anger at her assisted living facility. Plan Continue same medications, this moment at baseline Waiting for placement I spent minutes with the patient and/or on the patient floor today, greater than?50% of which was spent counseling/coordinating care. Reason for contiued inpatient stay Substantial Risk for: inability to function, rapid decompensation and med/psych decompensation
--- NOTE | 2021-11-29 15:47 | MHC.CLN ---
F/U APPEARS TO BE EATING WELL. CONTINUE REGULAR DIET WITH ENSURE BID. RD TO FOLLOW WEEKLY.
[2021-11-29 20:30] VITALS: BP 109/68; PULSE 82; RESP 17; TEMP 36.1; O2SAT 93
[2021-11-29] MEDS: Albuterol Sulfate 90 MCG 8 GM INHALER 2 PUFF INHALE (20:52)
[2021-11-29] MEDS: Magnesium Hydrox/Alum Hydrox 30 ML ORAL.SUSP PO (20:53)
[2021-11-29] MEDS: Lactulose 20 GM/30 ML SOLUTION PO (20:53)
[2021-11-29] MEDS: polyethylene glycoL 3350 17 GM POWD.PACK PO (20:53)
[2021-11-29] MEDS: Milk of Magnesia 30 ML ORAL.SUSP PO (20:53)
[2021-11-29] MEDS: Docusate Sodium 100 MG CAPSULE PO (20:57)
[2021-11-29] MEDS: bisacodyL 5 MG TABLET.DR 10 MG PO (20:57)
[2021-11-29] MEDS: clonazePAM 0.5 MG TABLET 1.5 MG PO (20:57)
[2021-11-29] MEDS: OLANZapine 10 MG TABLET 20 MG PO (20:58)
[2021-11-29] MEDS: QUEtiapine Fumarate 50 MG TABLET PO (20:58)
[2021-11-29] MEDS: oxyCODONE HCl ER 10 MG TAB.ER.12H PO (20:58)
[2021-11-29] MEDS: Divalproex Sodium 250 MG TABLET.DR PO (20:58)
[2021-11-29] MEDS: traZODone HCL 50 MG TABLET PO (20:58)
[2021-11-29] MEDS: Acetaminophen 325 MG TABLET 650 MG PO (20:58)
[2021-11-29] MEDS: Tamsulosin HCL 0.4 MG CAPSULE 0.8 MG PO (20:59)
[2021-11-29] MEDS: Montelukast Sodium 10 MG TABLET PO (20:59)
[2021-11-29] MEDS: Divalproex Sodium 500 MG TABLET.DR PO (20:59)
[2021-11-30] MEDS: oxyCODONE HCl Immed Release 5 MG TABLET 10 MG PO ×4 (00:48→20:12)
[2021-11-30] MEDS: Sulfamethox/Trimeth 800/160 TABLET 1 TAB PO ×2 (06:16→17:27)
[2021-11-30] MEDS: Omeprazole 20 MG CAPSULE.DR PO (06:16)
--- NOTE | 2021-11-30 06:31 | PC.NURSE ---
Pt. declined 1800 dose of bactrim on 11/29/2021 and asked to take it later with HS medications. At shift change RN was given a message from pt. Requesting oxycontin at 1999 and the rest of her HS medications at 2099 including PRNs. RN reviewed the request with pt. She then indicated that she wanted oxycodone not oxycontin. RN has reviewed the difference between the two and the meaning of scheduled vs. PRN many times. The pt. is forgetful and gets confused easily regarding medications. It was determined that pt would take oxycodone 10mg and approximately 60-90 minutes later would take her HS medications and additional PRNs. RN asked if she wanted to take the bactrim with the oxycodone or later with the rest of the medications. The pt first said she had already taken it. RN told her she had asked to take it later. The pt started screaming very loudly from her seat in the common area. She accused the staff of being incompetent and stated, ?you?re doing it to me again and withholding my medications.? The pt carried on loudly for a few minutes. RN asked pt to either take the oxycodone or hand it back to prevent it from falling out of the medication cup.?Pt. took the oxycodone 10mg at 1943 for 8/10 RLE pain and bactrim 1 tab a few minutes later? while criticizing staff and her experience at the hospital. Pt. then returned to her room. About 45 minutes later, RN received a phone call from Dr. Kulkarni, the covering oncologist at patient?s oncology practice (Dr. Cabrera is the primary oncologist). Dr. Kulkarni reported the pt had paged the service. She was familiar with the pt and reported this is not new behavior for the pt. She asked RN to ask pt to call during business hours. Pt. was defensive when RN suggested this. She reported, ?I can call whenever I want.??Pt. asked RN to list all PRNs and she would pick the meds she wanted to take. Pt. took scheduled HS medications and the following PRNs: Tylenol 650mg at 2057 for 10/10 RLE pain, ventolin inhaler 2 puffs for shortness of breath at 2051, dulcolax 10mg at 2056, colace 100mg at 2056, lactulose 20gm at 2052, maalox 30ml for heartburn at 2052, milk of mag 30ml at 2052 and trazodone 50mg at 2057.?Pt. agreed to bladder scan after voiding a very small amount that was unmeasured. PVR bladder scan 728ml. Pt. allowed for straight cath which yielded 800ml of yellow urine.?Pt. asked multiple times about when she could get oxycodone and oxycontin again. She also asked if she could take bactrim just before 0800 so it would be closer to 12 hours between doses. RN reported this information to Monse Arechiga NP. Pt. requested and received oxycodone at 0048 for 6/10 RLE and right side pain. Pt. was up intermittently asking when she could get another dose of oxycodone. Around 0415 pt requested oxycodone again and asked for bactrim as well. RN explained that she could receive oxycodone around 0450 and the bactrim was scheduled for 0600. Pt. fell asleep. Pt. took bactrim, oxycodone 10mg prn for 8/10 RLE pain, and scheduled omeprazole at 0616. Pt. declined bladder scans through the night. Pt. had a BM. She was assisted with repositioning throughout the night.
[2021-11-30 07:40] VITALS: BP 103/59; PULSE 70; TEMP 37; O2SAT 96
--- NOTE | 2021-11-30 08:55 | PC.NURSE ---
Skin/Wound assessment completed today. Patient has warmth, edema and slight redness to right leg from knee to ankle with a red spot on great toe. Woundres' gel applied to red spot covered with Tegaderm. No other skin issues noted at this time.
[2021-11-30] MEDS: amLODIPine Besylate 2.5 MG TABLET PO (09:52)
[2021-11-30] MEDS: Multivitamin TABLET 1 TAB PO (09:52)
[2021-11-30] MEDS: Loratadine 10 MG TABLET PO (09:52)
[2021-11-30] MEDS: Aspirin 81 MG TAB.CHEW PO (09:52)
[2021-11-30] MEDS: metFORMIN HCl 500 MG TABLET PO ×2 (09:52→17:27)
[2021-11-30] MEDS: Sennosides 8.6 MG TABLET 17.2 MG PO ×2 (09:52→20:09)
[2021-11-30] MEDS: oxyCODONE HCl ER 10 MG TAB.ER.12H PO ×2 (09:52→20:11)
[2021-11-30] MEDS: clonazePAM 0.5 MG TABLET 1.5 MG PO ×2 (09:53→20:10)
[2021-11-30] MEDS: polyethylene glycoL 3350 17 GM POWD.PACK PO (09:57)
[2021-11-30] MEDS: Fluticasone Propionate Nasal 16 GM SPRAY 1 SPRAY NOSTRIL-B ×2 (09:57→20:06)
[2021-11-30] MEDS: Ibuprofen 600 MG TABLET PO (10:16)
--- NOTE | 2021-11-30 14:22 | HO.PSYCHPN ---
Subjective Subjective Date of Service: 11/30/21 Reason For Visit: schizoaffective disorder,bipolar type Subjective Notes: Conditional Voluntary Interim History: The nursing staff reported that the patient takes all her PRNs, she complains that her anti biotics are not given the exact hour and she has complained several times regarding nursing care . On interview, the patient denies new symptoms, she was informed that she was accepted at a program called [facility] Mental Status Exam Mental Status Exam Patient Appearance: Well Grooomed Patient Orientation: Person Level of Consciousness: Awake Patient Behavior: Guarded and Suspicious Mood Description: Hostile Affect Description: Constricted Ability to Follow Directions: Fair Speech Pattern: Appropriate Hallucinations: None Delusions: Paranoid Ideation and Grandiose Thought Process: Linear Thought Content: positive for Circum[place] Judgement: Fair Diagnostics Vital Signs (24Hr): Vital Signs - 24 hr 11/29/21 20:30 11/30/21 07:40 Temperature 97 F 98.6 F Pulse Rate 82 70 Respiratory Rate 17 Blood Pressure 109/68 103/59 L Pulse Oximetry 93 96 BMI result Body Mass Index 26.6 Labs Results: 11/24/21 08:26 11/25/21 07:54 Imaging Radiology Impressions: ITS Impressions Venous Duplex 11/25/21 11:03 IMPRESSION: No DVT demonstrated in the right lower extremity. Medications Medications Current Medications Acetaminophen (Acetaminophen 325 Mg Tablet) 650 mg PO Q6H PRN PRN Reason: Headache/Pain Mild Scale (1-3) Last Admin: 11/29/21 20:58 Dose: 650 mg Documented by: Al Hydroxide/Mg Hydroxide (Magnesium Hydrox/Alum Hydrox 30 Ml Oral.Susp) 30 ml PO Q6H PRN PRN Reason: Heartburn/Nausea Last Admin: 11/29/21 20:53 Dose: 30 ml Documented by: Albuterol Sulfate (Albuterol Sulfate 90 Mcg 8 Gm Inhaler) 2 puff INHALE Q6H PRN PRN Reason: asthma Last Admin: 11/29/21 20:52 Dose: 2 puff Documented by: Amlodipine Besylate (Amlodipine Besylate 2.5 Mg Tablet) 2.5 mg PO DAILY [facility]; Protocol Last Admin: 11/30/21 09:52 Dose: 2.5 mg Documented by: Aspirin (Aspirin 81 Mg Tab.Chew) 81 mg PO DAILY [facility] Last Admin: 11/30/21 09:52 Dose: 81 mg Documented by: Bisacodyl (Bisacodyl 5 Mg Tablet.) 10 mg PO DAILY PRN PRN Reason: Constipation Last Admin: 11/29/21 20:57 Dose: 10 mg Documented by: Budesonide (Budesonide 180 Mcg Aer.Pow.Ba) 2 puff INHALE RBID [facility] Last Admin: 11/30/21 10:02 Dose: Not Given Documented by: Clonazepam (Clonazepam 0.5 Mg Tablet) 1.5 mg PO BID [facility] Last Admin: 11/30/21 09:53 Dose: 1.5 mg Documented by: Clonazepam (Clonazepam 0.5 Mg Tablet) 1.5 mg PO DAILY PRN PRN Reason: Anxiety Divalproex Sodium (Divalproex Sodium 500 Mg Tablet.) 500 mg PO BEDTIME [facility] Last Admin: 11/29/21 20:59 Dose: 500 mg Documented by: Divalproex Sodium (Divalproex Sodium 250 Mg Tablet.) 250 mg PO BEDTIME [facility] Last Admin: 11/29/21 20:58 Dose: 250 mg Documented by: Docusate Sodium (Docusate Sodium 100 Mg Capsule) 100 mg PO BID PRN PRN Reason: constipation Last Admin: 11/29/21 20:57 Dose: 100 mg Documented by: Fluticasone Propionate (Fluticasone Propionate Nasal 16 Gm [place]) 1 spray NOSTRIL-B BID [facility] Last Admin: 11/30/21 09:57 Dose: 1 spray Documented by: Hydroxyzine HCl (Hydroxyzine Hcl 25 Mg Tablet) 25 mg PO Q6H PRN PRN Reason: Anxiety Last Admin: 11/27/21 00:30 Dose: 25 mg Documented by: Ibuprofen (Ibuprofen 600 Mg Tablet) 600 mg PO Q8H PRN PRN Reason: mod-severe pain, fever Last Admin: 11/30/21 10:16 Dose: 600 mg Documented by: Lactulose (Lactulose 20 Gm/30 Ml Solution) 20 gm PO BID PRN PRN Reason: constipation Last Admin: 11/29/21 20:53 Dose: 20 gm Documented by: Loperamide HCl (Loperamide Hcl 2 Mg Capsule) 2 mg PO Q6H PRN PRN Reason: diarrhea Loratadine (Loratadine 10 Mg Tablet) 10 mg PO DAILY [facility] Last Admin: 11/30/21 09:52 Dose: 10 mg Documented by: Magnesium Hydroxide (Milk Of Magnesia 30 Ml Oral.Susp) 30 ml PO DAILY PRN PRN Reason: Constipation Last Admin: 11/29/21 20:53 Dose: 30 ml Documented by: Metformin HCl (Metformin Hcl 500 Mg Tablet) 500 mg PO BIDWM [facility] Last Admin: 11/30/21 09:52 Dose: 500 mg Documented by: Montelukast Sodium (Montelukast Sodium 10 Mg Tablet) 10 mg PO BEDTIME [facility] Last Admin: 11/29/21 20:59 Dose: 10 mg Documented by: Multivitamins/Vitamin C (Multivitamin Tablet) 1 tab PO DAILY [facility] Last Admin: 11/30/21 09:52 Dose: 1 tab Documented by: Olanzapine (Olanzapine 10 Mg Tablet) 20 mg PO BEDTIME [facility] Last Admin: 11/29/21 20:58 Dose: 20 mg Documented by: Omeprazole (Omeprazole 20 Mg Capsule.Dr) 20 mg PO DAILY@0630 [facility] Last Admin: 11/30/21 06:16 Dose: 20 mg Documented by: Ondansetron HCl (Ondansetron Odt 8 Mg Tab.Rapdis) 8 mg TRANSLINGU Q8H PRN PRN Reason: Nausea Last Admin: 11/23/21 08:40 Dose: 8 mg Documented by: Oxycodone HCl (Oxycodone Hcl Immed Release 5 Mg Tablet) 10 mg PO Q4H PRN PRN Reason: Pain, Mild (Pain Scale 1-3) Last Admin: 11/30/21 11:35 Dose: 10 mg Documented by: Oxycodone HCl (Oxycodone Hcl Er 10 Mg Tab.Er.12h) 10 mg PO BID [facility] Last Admin: 11/30/21 09:52 Dose: 10 mg Documented by: Polyethylene Glycol (Polyethylene Glycol 3350 17 Gm Powd.Pack) 17 gm PO BID [facility] Last Admin: 11/30/21 09:57 Dose: 17 gm Documented by: Potassium Chloride (Potassium Chloride Er 10 Meq Capsule.Er) 10 meq PO Q48H [facility] Last Admin: 11/28/21 21:15 Dose: 10 meq Documented by: Prochlorperazine Maleate (Prochlorperazine Maleate 5 Mg Tablet) 5 mg PO TID PRN PRN Reason: nausea, vomiting Last Admin: 11/26/21 18:16 Dose: 5 mg Documented by: Quetiapine Fumarate (Quetiapine Fumarate 50 Mg Tablet) 50 mg PO BEDTIME [facility] Last Admin: 11/29/21 20:58 Dose: 50 mg Documented by: Quetiapine Fumarate (Quetiapine Fumarate 50 Mg Tablet) 50 mg PO BID PRN PRN Reason: agitation, anxiety Last Admin: 11/22/21 05:37 Dose: 50 mg Documented by: Senna (Sennosides 8.6 Mg Tablet) 17.2 mg PO BID [facility] Last Admin: 11/30/21 09:52 Dose: 17.2 mg Documented by: Simethicone (Simethicone 80 Mg Tab.Chew) 80 mg PO QIDWMHS PRN PRN Reason: gas Sodium Biphosphate/Sodium Phosphate (Sodium Phosphate,[place]-Dibasic 133 Ml Enema) 133 ml AL ONCE PRN PRN Reason: constipation Tamsulosin HCl (Tamsulosin Hcl 0.4 Mg Capsule) 0.8 mg PO BEDTIME [facility] Last Admin: 11/29/21 20:59 Dose: 0.8 mg Documented by: Trazodone HCl (Trazodone Hcl 50 Mg Tablet) 50 mg PO BEDTIME PRN PRN Reason: Insomnia Last Admin: 11/29/21 20:58 Dose: 50 mg Documented by: Trimethoprim/Sulfamethoxazole (Sulfamethox/Trimeth 800/160 Tablet) 1 tab PO Q12H [facility] Last Admin: 11/30/21 06:16 Dose: 1 tab Documented by: Allergies Allergies Allergy/AdvReac Type Severity Reaction Status Date / Time clozapine [From Clozaril] Allergy Unknown decreased Verified 11/16/21 19:39 WBC haloperidol [From Haldol] Allergy Unknown unknown Verified 11/16/21 19:36 cat dander Allergy Unknown Verified 11/16/21 21:31 house dust Allergy Unknown Verified 11/16/21 21:31 Phenothiazines Allergy Unknown Verified 11/16/21 21:31 wool Allergy Unknown Verified 11/16/21 21:31 Assessment & Plan Assessment & Plan (1) Urinary retention with incomplete bladder emptying: Status: Acute Code(s): R33.9 - Retention of urine, unspecified Plan The patient is a 76-year-old female with a long history of schizoaffective disorder and endometrial cancer stage IV, terminal admitted from [facility] for a suicidal attempt by overdose of Tylenol but it seems that it was impulsive due to anger at her assisted living facility. Plan Continue same medications, this moment at baseline Waiting for placement I spent minutes with the patient and/or on the patient floor today, greater than?50% of which was spent counseling/coordinating care. Reason for contiued inpatient stay Substantial Risk for: inability to function, rapid decompensation and med/psych decompensation
[2021-11-30 18:00] VITALS: BP 100/56; PULSE 86; RESP 17; TEMP 36.6; O2SAT 96
[2021-11-30] MEDS: Albuterol Sulfate 90 MCG 8 GM INHALER 2 PUFF INHALE (20:06)
[2021-11-30] MEDS: QUEtiapine Fumarate 50 MG TABLET PO (20:07)
[2021-11-30] MEDS: OLANZapine 10 MG TABLET 20 MG PO (20:08)
[2021-11-30] MEDS: Divalproex Sodium 500 MG TABLET.DR PO (20:09)
[2021-11-30] MEDS: Montelukast Sodium 10 MG TABLET PO (20:09)
[2021-11-30] MEDS: Divalproex Sodium 250 MG TABLET.DR PO (20:10)
[2021-11-30] MEDS: Tamsulosin HCL 0.4 MG CAPSULE 0.8 MG PO (20:11)
--- NOTE | 2021-11-30 23:25 | PC.NURSE ---
PT refused to void before bladder scan, 738ml in bladder. PT agreed to be straight cath, unable to obtain, PT refused to have another nurse try. PT is asymptomatic and is requesting a parker catheter. Dr Negro notified.
--- NOTE | 2021-12-01 00:28 | PC.NURSE ---
PT still refusing to be straight cathed at this time 0028.
[2021-12-01] MEDS: oxyCODONE HCl Immed Release 5 MG TABLET 10 MG PO ×4 (02:36→20:17)
[2021-12-01] MEDS: Sulfamethox/Trimeth 800/160 TABLET 1 TAB PO ×2 (06:13→17:00)
[2021-12-01] MEDS: Omeprazole 20 MG CAPSULE.DR PO (06:13)
[2021-12-01] MEDS: Ibuprofen 600 MG TABLET PO (06:14)
[2021-12-01 07:30] VITALS: BP 120/62; PULSE 76; RESP 18; TEMP 36.7; O2SAT 97
[2021-12-01] MEDS: Sennosides 8.6 MG TABLET 17.2 MG PO ×2 (08:32→20:17)
[2021-12-01] MEDS: oxyCODONE HCl ER 10 MG TAB.ER.12H PO ×2 (08:33→20:18)
[2021-12-01] MEDS: amLODIPine Besylate 2.5 MG TABLET PO (08:33)
[2021-12-01] MEDS: polyethylene glycoL 3350 17 GM POWD.PACK PO (08:33)
[2021-12-01] MEDS: Aspirin 81 MG TAB.CHEW PO (08:33)
[2021-12-01] MEDS: Albuterol Sulfate 90 MCG 8 GM INHALER 2 PUFF INHALE ×2 (08:33→20:25)
[2021-12-01] MEDS: Fluticasone Propionate Nasal 16 GM SPRAY 1 SPRAY NOSTRIL-B ×2 (08:34→20:25)
[2021-12-01] MEDS: Multivitamin TABLET 1 TAB PO (08:34)
[2021-12-01] MEDS: metFORMIN HCl 500 MG TABLET PO ×2 (08:34→17:01)
[2021-12-01] MEDS: Loratadine 10 MG TABLET PO (08:34)
[2021-12-01] MEDS: Acetaminophen 325 MG TABLET 650 MG PO (15:07)
--- NOTE | 2021-12-01 15:11 | HO.PSYCHPN ---
Subjective Subjective Date of Service: 12/01/21 Reason For Visit: schizoaffective disorder,bipolar type Subjective Notes: Conditional Voluntary Interim History: The nursing staff reports the patient is the common areas, very demanded with all her PRNs and the right times of her medication. On interview the patient said that she was very angry with the nursing staff since she is not getting her pain medication or antibiotics at the right time. The clinical social worker reported that the patient was already a accepted at a program but we are waiting for [facility] clearance. Mental Status Exam Mental Status Exam Patient Appearance: Well Grooomed Patient Orientation: Person and Situation Level of Consciousness: Awake Patient Behavior: Guarded and Passive Mood Description: Depressed Affect Description: Constricted Patient Cognition Impaired: Yes Ability to Follow Directions: Good Speech Pattern: Clear Hallucinations: Auditory Delusions: Paranoid Ideation and Grandiose Thought Content: positive for Linear Judgement: Fair Diagnostics Vital Signs (24Hr): Vital Signs - 24 hr 11/30/21 18:00 12/01/21 07:30 Temperature 97.8 F 98.0 F Pulse Rate 86 76 Respiratory Rate 17 18 Blood Pressure 100/56 L 120/62 Pulse Oximetry 96 97 BMI result Body Mass Index 26.6 Labs Results: 11/24/21 08:26 11/25/21 07:54 Imaging Radiology Impressions: ITS Impressions Venous Duplex 11/25/21 11:03 IMPRESSION: No DVT demonstrated in the right lower extremity. Medications Medications Current Medications Acetaminophen (Acetaminophen 325 Mg Tablet) 650 mg PO Q6H PRN PRN Reason: Headache/Pain Mild Scale (1-3) Last Admin: 12/01/21 15:07 Dose: 650 mg Documented by: Al Hydroxide/Mg Hydroxide (Magnesium Hydrox/Alum Hydrox 30 Ml Oral.Susp) 30 ml PO Q6H PRN PRN Reason: Heartburn/Nausea Last Admin: 11/29/21 20:53 Dose: 30 ml Documented by: Albuterol Sulfate (Albuterol Sulfate 90 Mcg 8 Gm Inhaler) 2 puff INHALE Q6H PRN PRN Reason: asthma Last Admin: 12/01/21 08:33 Dose: 2 puff Documented by: Amlodipine Besylate (Amlodipine Besylate 2.5 Mg Tablet) 2.5 mg PO DAILY [facility]; Protocol Last Admin: 12/01/21 08:33 Dose: 2.5 mg Documented by: Aspirin (Aspirin 81 Mg Tab.Chew) 81 mg PO DAILY [facility] Last Admin: 12/01/21 08:33 Dose: 81 mg Documented by: Bisacodyl (Bisacodyl 5 Mg Tablet.) 10 mg PO DAILY PRN PRN Reason: Constipation Last Admin: 11/29/21 20:57 Dose: 10 mg Documented by: Budesonide (Budesonide 180 Mcg Aer.Pow.Ba) 2 puff INHALE RBID [facility] Last Admin: 12/01/21 08:34 Dose: Not Given Documented by: Clonazepam (Clonazepam 0.5 Mg Tablet) 1.5 mg PO BID [facility] Last Admin: 12/01/21 08:36 Dose: Not Given Documented by: Clonazepam (Clonazepam 0.5 Mg Tablet) 1.5 mg PO DAILY PRN PRN Reason: Anxiety Divalproex Sodium (Divalproex Sodium 500 Mg Tablet.) 500 mg PO BEDTIME [facility] Last Admin: 11/30/21 20:09 Dose: 500 mg Documented by: Divalproex Sodium (Divalproex Sodium 250 Mg Tablet.) 250 mg PO BEDTIME [facility] Last Admin: 11/30/21 20:10 Dose: 250 mg Documented by: Docusate Sodium (Docusate Sodium 100 Mg Capsule) 100 mg PO BID PRN PRN Reason: constipation Last Admin: 11/29/21 20:57 Dose: 100 mg Documented by: Fluticasone Propionate (Fluticasone Propionate Nasal 16 Gm [place]) 1 spray NOSTRIL-B BID [facility] Last Admin: 12/01/21 08:34 Dose: 1 spray Documented by: Hydroxyzine HCl (Hydroxyzine Hcl 25 Mg Tablet) 25 mg PO Q6H PRN PRN Reason: Anxiety Last Admin: 11/27/21 00:30 Dose: 25 mg Documented by: Ibuprofen (Ibuprofen 600 Mg Tablet) 600 mg PO Q8H PRN PRN Reason: mod-severe pain, fever Last Admin: 12/01/21 06:14 Dose: 600 mg Documented by: Lactulose (Lactulose 20 Gm/30 Ml Solution) 20 gm PO BID PRN PRN Reason: constipation Last Admin: 11/29/21 20:53 Dose: 20 gm Documented by: Loperamide HCl (Loperamide Hcl 2 Mg Capsule) 2 mg PO Q6H PRN PRN Reason: diarrhea Loratadine (Loratadine 10 Mg Tablet) 10 mg PO DAILY [facility] Last Admin: 12/01/21 08:34 Dose: 10 mg Documented by: Magnesium Hydroxide (Milk Of Magnesia 30 Ml Oral.Susp) 30 ml PO DAILY PRN PRN Reason: Constipation Last Admin: 11/29/21 20:53 Dose: 30 ml Documented by: Metformin HCl (Metformin Hcl 500 Mg Tablet) 500 mg PO BIDWM [facility] Last Admin: 12/01/21 08:34 Dose: 500 mg Documented by: Montelukast Sodium (Montelukast Sodium 10 Mg Tablet) 10 mg PO BEDTIME [facility] Last Admin: 11/30/21 20:09 Dose: 10 mg Documented by: Multivitamins/Vitamin C (Multivitamin Tablet) 1 tab PO DAILY [facility] Last Admin: 12/01/21 08:34 Dose: 1 tab Documented by: Olanzapine (Olanzapine 10 Mg Tablet) 20 mg PO BEDTIME [facility] Last Admin: 11/30/21 20:08 Dose: 20 mg Documented by: Omeprazole (Omeprazole 20 Mg Capsule.Dr) 20 mg PO DAILY@0630 [facility] Last Admin: 12/01/21 06:13 Dose: 20 mg Documented by: Ondansetron HCl (Ondansetron Odt 8 Mg Tab.Rapdis) 8 mg TRANSLINGU Q8H PRN PRN Reason: Nausea Last Admin: 11/23/21 08:40 Dose: 8 mg Documented by: Oxycodone HCl (Oxycodone Hcl Immed Release 5 Mg Tablet) 10 mg PO Q4H PRN PRN Reason: Pain, Mild (Pain Scale 1-3) Last Admin: 12/01/21 15:07 Dose: 10 mg Documented by: Oxycodone HCl (Oxycodone Hcl Er 10 Mg Tab.Er.12h) 10 mg PO BID [facility] Last Admin: 12/01/21 08:33 Dose: 10 mg Documented by: Polyethylene Glycol (Polyethylene Glycol 3350 17 Gm Powd.Pack) 17 gm PO BID [facility] Last Admin: 12/01/21 08:33 Dose: 17 gm Documented by: Potassium Chloride (Potassium Chloride Er 10 Meq Capsule.Er) 10 meq PO Q48H [facility] Last Admin: 11/30/21 20:08 Dose: 10 meq Documented by: Prochlorperazine Maleate (Prochlorperazine Maleate 5 Mg Tablet) 5 mg PO TID PRN PRN Reason: nausea, vomiting Last Admin: 11/26/21 18:16 Dose: 5 mg Documented by: Quetiapine Fumarate (Quetiapine Fumarate 50 Mg Tablet) 50 mg PO BEDTIME [facility] Last Admin: 11/30/21 20:07 Dose: 50 mg Documented by: Quetiapine Fumarate (Quetiapine Fumarate 50 Mg Tablet) 50 mg PO BID PRN PRN Reason: agitation, anxiety Last Admin: 11/22/21 05:37 Dose: 50 mg Documented by: Senna (Sennosides 8.6 Mg Tablet) 17.2 mg PO BID [facility] Last Admin: 12/01/21 08:32 Dose: 17.2 mg Documented by: Simethicone (Simethicone 80 Mg Tab.Chew) 80 mg PO QIDWMHS PRN PRN Reason: gas Sodium Biphosphate/Sodium Phosphate (Sodium Phosphate,[place]-Dibasic 133 Ml Enema) 133 ml [place] ONCE PRN PRN Reason: constipation Tamsulosin HCl (Tamsulosin Hcl 0.4 Mg Capsule) 0.8 mg PO BEDTIME [facility] Last Admin: 11/30/21 20:11 Dose: 0.8 mg Documented by: Trazodone HCl (Trazodone Hcl 50 Mg Tablet) 50 mg PO BEDTIME PRN PRN Reason: Insomnia Last Admin: 11/29/21 20:58 Dose: 50 mg Documented by: Trimethoprim/Sulfamethoxazole (Sulfamethox/Trimeth 800/160 Tablet) 1 tab PO Q12H [facility] Last Admin: 12/01/21 06:13 Dose: 1 tab Documented by: Allergies Allergies Allergy/AdvReac Type Severity Reaction Status Date / Time clozapine [From Clozaril] Allergy Unknown decreased Verified 11/16/21 19:39 WBC haloperidol [From Haldol] Allergy Unknown unknown Verified 11/16/21 19:36 cat dander Allergy Unknown Verified 11/16/21 21:31 house dust Allergy Unknown Verified 11/16/21 21:31 Phenothiazines Allergy Unknown Verified 11/16/21 21:31 wool Allergy Unknown Verified 11/16/21 21:31 Assessment & Plan Assessment & Plan (1) Urinary retention with incomplete bladder emptying: Status: Acute Code(s): R33.9 - Retention of urine, unspecified Plan The patient is a 76-year-old female with a long history of schizoaffective disorder and endometrial cancer stage IV, terminal admitted from [facility] for a suicidal attempt by overdose of Tylenol but it seems that it was impulsive due to anger at her assisted living facility. Plan Continue same medications, this moment at baseline Waiting for placement I spent minutes with the patient and/or on the patient floor today, greater than?50% of which was spent counseling/coordinating care. Reason for contiued inpatient stay Substantial Risk for: inability to function, rapid decompensation and med/psych decompensation
[2021-12-01 19:56] VITALS: BP 107/67; PULSE 84; RESP 17; TEMP 36.3; O2SAT 96
[2021-12-01] MEDS: clonazePAM 0.5 MG TABLET 1.5 MG PO (20:14)
[2021-12-01] MEDS: Divalproex Sodium 250 MG TABLET.DR PO (20:15)
[2021-12-01] MEDS: Divalproex Sodium 500 MG TABLET.DR PO (20:15)
[2021-12-01] MEDS: OLANZapine 10 MG TABLET 20 MG PO (20:15)
[2021-12-01] MEDS: Tamsulosin HCL 0.4 MG CAPSULE 0.8 MG PO (20:16)
[2021-12-01] MEDS: Montelukast Sodium 10 MG TABLET PO (20:17)
[2021-12-01] MEDS: QUEtiapine Fumarate 50 MG TABLET PO (20:17)
--- NOTE | 2021-12-02 01:45 | PC.NURSE ---
PT PVR at 2000 999ml, PT straight cathed at 2230, according to protocol, 1400 ml clear yellow urine output, no odor, PT tolerated preocedure well.
[2021-12-02] MEDS: Omeprazole 20 MG CAPSULE.DR PO (06:14)
[2021-12-02] MEDS: Sulfamethox/Trimeth 800/160 TABLET 1 TAB PO ×2 (06:14→18:32)
[2021-12-02 07:40] VITALS: BP 107/58; PULSE 87; RESP 14; TEMP 36.7; O2SAT 96
[2021-12-02 08:41] LABS: Creatinine Clr Calc Pharmacy 33.6; Estimated Glomerular Filt Rate 33
[2021-12-02] MEDS: Multivitamin TABLET 1 TAB PO (09:01)
[2021-12-02] MEDS: Sennosides 8.6 MG TABLET 17.2 MG PO ×2 (09:01→20:26)
[2021-12-02] MEDS: Loratadine 10 MG TABLET PO (09:02)
[2021-12-02] MEDS: oxyCODONE HCl ER 10 MG TAB.ER.12H PO ×2 (09:02→20:26)
[2021-12-02] MEDS: metFORMIN HCl 500 MG TABLET PO ×2 (09:02→16:20)
[2021-12-02] MEDS: Aspirin 81 MG TAB.CHEW PO (09:02)
[2021-12-02] MEDS: polyethylene glycoL 3350 17 GM POWD.PACK PO (09:03)
[2021-12-02] MEDS: Albuterol Sulfate 90 MCG 8 GM INHALER 2 PUFF INHALE ×2 (09:03→20:29)
[2021-12-02] MEDS: amLODIPine Besylate 2.5 MG TABLET PO (09:03)
[2021-12-02] MEDS: Fluticasone Propionate Nasal 16 GM SPRAY 1 SPRAY NOSTRIL-B ×2 (09:03→20:28)
[2021-12-02] MEDS: Acetaminophen 325 MG TABLET 650 MG PO (13:03)
--- NOTE | 2021-12-02 15:23 | P.PNPSI_ITS ---
Subjective Subjective Date of Service: 12/02/21 Reason For Visit: schizoaffective disorder,bipolar type Subjective Notes: Conditional Voluntary Interim History: The nursing staff reported that she has been less irritable yesterday. On interview, the patient reported that she is oversedated when she uses all her opioid PRN. Medication Compliance: Yes Mental Status Exam Mental Status Exam Patient Appearance: Well Grooomed Patient Orientation: Person and Situation Level of Consciousness: Awake Patient Behavior: Suspicious and Restless Mood Description: Labile Affect Description: Calm Ability to Follow Directions: Good Speech Pattern: Clear Hallucinations: None Delusions: Paranoid Ideation Thought Content: positive for Linear Judgement: Fair Diagnostics Vital Signs (24Hr): Vital Signs - 24 hr 12/01/21 19:56 12/02/21 07:40 Temperature 97.3 F 98.1 F Pulse Rate 84 87 Respiratory Rate 17 14 Blood Pressure 107/67 107/58 L Pulse Oximetry 96 96 BMI result [place] 4 Body Mass Index [place] 4 26.6 [place] 4 [place] 4 Labs Results: 11/24/21 08:26 12/02/21 08:14 Labs: Laboratory Results - last 48 hr 12/02/21 08:14 Creatinine 1.52 H Estim Creat Clear Calc 33.6 Estimated GFR 33 Imaging Radiology Impressions: ITS Impressions Venous Duplex 11/25/21 11:03 IMPRESSION: No DVT demonstrated in the right lower extremity. Medications Medications Current Medications Acetaminophen (Acetaminophen 325 Mg Tablet) 650 mg PO Q6H PRN PRN Reason: Headache/Pain Mild Scale (1-3) Last Admin: 12/02/21 13:03 Dose: 650 mg Documented by: Al Hydroxide/Mg Hydroxide (Magnesium Hydrox/Alum Hydrox 30 Ml Oral.Susp) 30 ml PO Q6H PRN PRN Reason: Heartburn/Nausea Last Admin: 11/29/21 20:53 Dose: 30 ml Documented by: Albuterol Sulfate (Albuterol Sulfate 90 Mcg 8 Gm Inhaler) 2 puff INHALE Q6H PRN PRN Reason: asthma Last Admin: 12/02/21 09:03 Dose: 2 puff Documented by: Amlodipine Besylate (Amlodipine Besylate 2.5 Mg Tablet) 2.5 mg PO DAILY [facility]; Protocol Last Admin: 12/02/21 09:03 Dose: 2.5 mg Documented by: Aspirin (Aspirin 81 Mg Tab.Chew) 81 mg PO DAILY [facility] Last Admin: 12/02/21 09:02 Dose: 81 mg Documented by: Bisacodyl (Bisacodyl 5 Mg Tablet.) 10 mg PO DAILY PRN PRN Reason: Constipation Last Admin: 11/29/21 20:57 Dose: 10 mg Documented by: Budesonide (Budesonide 180 Mcg Aer.Pow.Ba) 2 puff INHALE RBID [facility] Last Admin: 12/02/21 09:07 Dose: Not Given Documented by: Clonazepam (Clonazepam 0.5 Mg Tablet) 1.5 mg PO BID [facility] Last Admin: 12/02/21 09:04 Dose: Not Given Documented by: Divalproex Sodium (Divalproex Sodium 500 Mg Tablet.) 500 mg PO BEDTIME [facility] Last Admin: 12/01/21 20:15 Dose: 500 mg Documented by: Divalproex Sodium (Divalproex Sodium 250 Mg Tablet.) 250 mg PO BEDTIME [facility] Last Admin: 12/01/21 20:15 Dose: 250 mg Documented by: Docusate Sodium (Docusate Sodium 100 Mg Capsule) 100 mg PO BID PRN PRN Reason: constipation Last Admin: 11/29/21 20:57 Dose: 100 mg Documented by: Fluticasone Propionate (Fluticasone Propionate Nasal 16 Gm [place]) 1 spray NOSTRIL-B BID [facility] Last Admin: 12/02/21 09:03 Dose: 1 spray Documented by: Hydroxyzine HCl (Hydroxyzine Hcl 25 Mg Tablet) 25 mg PO Q6H PRN PRN Reason: Anxiety Last Admin: 11/27/21 00:30 Dose: 25 mg Documented by: Ibuprofen (Ibuprofen 600 Mg Tablet) 600 mg PO Q8H PRN PRN Reason: mod-severe pain, fever Last Admin: 12/01/21 06:14 Dose: 600 mg Documented by: Lactulose (Lactulose 20 Gm/30 Ml Solution) 20 gm PO BID PRN PRN Reason: constipation Last Admin: 11/29/21 20:53 Dose: 20 gm Documented by: Loperamide HCl (Loperamide Hcl 2 Mg Capsule) 2 mg PO Q6H PRN PRN Reason: diarrhea Loratadine (Loratadine 10 Mg Tablet) 10 mg PO DAILY [facility] Last Admin: 12/02/21 09:02 Dose: 10 mg Documented by: Magnesium Hydroxide (Milk Of Magnesia 30 Ml Oral.Susp) 30 ml PO DAILY PRN PRN Reason: Constipation Last Admin: 11/29/21 20:53 Dose: 30 ml Documented by: Metformin HCl (Metformin Hcl 500 Mg Tablet) 500 mg PO BIDWM [facility] Last Admin: 12/02/21 09:02 Dose: 500 mg Documented by: Montelukast Sodium (Montelukast Sodium 10 Mg Tablet) 10 mg PO BEDTIME [facility] Last Admin: 12/01/21 20:17 Dose: 10 mg Documented by: Multivitamins/Vitamin C (Multivitamin Tablet) 1 tab PO DAILY [facility] Last Admin: 12/02/21 09:01 Dose: 1 tab Documented by: Olanzapine (Olanzapine 10 Mg Tablet) 20 mg PO BEDTIME [facility] Last Admin: 12/01/21 20:15 Dose: 20 mg Documented by: Omeprazole (Omeprazole 20 Mg Capsule.Dr) 20 mg PO DAILY@0630 [facility] Last Admin: 12/02/21 06:14 Dose: 20 mg Documented by: Ondansetron HCl (Ondansetron Odt 8 Mg Tab.Rapdis) 8 mg TRANSLINGU Q8H PRN PRN Reason: Nausea Last Admin: 11/23/21 08:40 Dose: 8 mg Documented by: Oxycodone HCl (Oxycodone Hcl Immed Release 5 Mg Tablet) 10 mg PO Q4H PRN PRN Reason: Pain, Mild (Pain Scale 1-3) Last Admin: 12/01/21 20:17 Dose: 10 mg Documented by: Oxycodone HCl (Oxycodone Hcl Er 10 Mg Tab.Er.12h) 10 mg PO BID [facility] Last Admin: 12/02/21 09:02 Dose: 10 mg Documented by: Polyethylene Glycol (Polyethylene Glycol 3350 17 Gm Powd.Pack) 17 gm PO BID [facility] Last Admin: 12/02/21 09:03 Dose: 17 gm Documented by: Potassium Chloride (Potassium Chloride Er 10 Meq Capsule.Er) 10 meq PO Q48H [facility] Last Admin: 11/30/21 20:08 Dose: 10 meq Documented by: Prochlorperazine Maleate (Prochlorperazine Maleate 5 Mg Tablet) 5 mg PO TID PRN PRN Reason: nausea, vomiting Last Admin: 11/26/21 18:16 Dose: 5 mg Documented by: Quetiapine Fumarate (Quetiapine Fumarate 50 Mg Tablet) 50 mg PO BEDTIME [facility] Last Admin: 12/01/21 20:17 Dose: 50 mg Documented by: Quetiapine Fumarate (Quetiapine Fumarate 50 Mg Tablet) 50 mg PO BID PRN PRN Reason: agitation, anxiety Last Admin: 11/22/21 05:37 Dose: 50 mg Documented by: Senna (Sennosides 8.6 Mg Tablet) 17.2 mg PO BID [facility] Last Admin: 12/02/21 09:01 Dose: 17.2 mg Documented by: Simethicone (Simethicone 80 Mg Tab.Chew) 80 mg PO QIDWMHS PRN PRN Reason: gas Sodium Biphosphate/Sodium Phosphate (Sodium Phosphate,[place]-Dibasic 133 Ml Enema) 133 ml [place] ONCE PRN PRN Reason: constipation Tamsulosin HCl (Tamsulosin Hcl 0.4 Mg Capsule) 0.8 mg PO BEDTIME [facility] Last Admin: 12/01/21 20:16 Dose: 0.8 mg Documented by: Trazodone HCl (Trazodone Hcl 50 Mg Tablet) 50 mg PO BEDTIME PRN PRN Reason: Insomnia Last Admin: 11/29/21 20:58 Dose: 50 mg Documented by: Trimethoprim/Sulfamethoxazole (Sulfamethox/Trimeth 800/160 Tablet) 1 tab PO Q12H [facility] Last Admin: 12/02/21 06:14 Dose: 1 tab Documented by: Allergies Allergies Allergy/AdvReac Type Severity Reaction Status Date / Time clozapine [From Allergy Unknown decreased Verified 11/16/21 19:39 Clozaril] WBC haloperidol [From Allergy Unknown unknown Verified 11/16/21 19:36 Haldol] cat dander Allergy Unknown Verified 11/16/21 21:31 house dust Allergy Unknown Verified 11/16/21 21:31 Phenothiazines Allergy Unknown Verified 11/16/21 21:31 wool Allergy Unknown Verified 11/16/21 21:31 Assessment & Plan Assessment & Plan (1) Urinary retention with incomplete bladder emptying: Status: Acute Code(s): R33.9 - Retention of urine, unspecified Plan The patient is a 76-year-old female with a long history of sc hizoaffective disorder and endometrial cancer stage IV, terminal admitted from [facility] for a suicidal attempt by overdose of Tylenol but it seems that it was impulsive due to anger at her assisted living facility. Plan Continue same medications, this moment at baseline Waiting for placement I spent minutes with the patient and/or on the patient floor today, greater than?50% of which was spent counseling/coordinating care. Patient educated on: diagnosis Reason for contiued inpatient stay Substantial Risk for: inability to function, rapid decompensation and med/psych decompensation
[2021-12-02] MEDS: Ondansetron ODT 8 MG TAB.RAPDIS TRANSLINGU (16:20)
[2021-12-02] MEDS: Lactulose 20 GM/30 ML SOLUTION PO (16:20)
[2021-12-02] MEDS: oxyCODONE HCl Immed Release 5 MG TABLET 10 MG PO ×3 (16:20→23:58)
[2021-12-02 20:01] VITALS: BP 127/88; PULSE 85; RESP 17; TEMP 36.8; O2SAT 95
[2021-12-02] MEDS: OLANZapine 10 MG TABLET 20 MG PO (20:24)
[2021-12-02] MEDS: Tamsulosin HCL 0.4 MG CAPSULE 0.8 MG PO (20:24)
[2021-12-02] MEDS: Montelukast Sodium 10 MG TABLET PO (20:25)
[2021-12-02] MEDS: Divalproex Sodium 250 MG TABLET.DR PO (20:25)
[2021-12-02] MEDS: Divalproex Sodium 500 MG TABLET.DR PO (20:25)
[2021-12-02] MEDS: clonazePAM 0.5 MG TABLET 1.5 MG PO (20:26)
[2021-12-02] MEDS: traZODone HCL 50 MG TABLET PO (20:26)
[2021-12-02] MEDS: QUEtiapine Fumarate 50 MG TABLET PO (20:27)
[2021-12-02] MEDS: Ibuprofen 600 MG TABLET PO (23:59)
[2021-12-03] MEDS: Omeprazole 20 MG CAPSULE.DR PO (06:05)
[2021-12-03] MEDS: Sulfamethox/Trimeth 800/160 TABLET 1 TAB PO ×2 (06:06→17:08)
[2021-12-03 07:20] VITALS: BP 110/66; PULSE 92; RESP 18; TEMP 36.4; O2SAT 95
[2021-12-03] MEDS: Aspirin 81 MG TAB.CHEW PO (08:14)
[2021-12-03] MEDS: Loratadine 10 MG TABLET PO (08:14)
[2021-12-03] MEDS: amLODIPine Besylate 2.5 MG TABLET PO (08:14)
[2021-12-03] MEDS: oxyCODONE HCl ER 10 MG TAB.ER.12H PO ×2 (08:14→21:41)
[2021-12-03] MEDS: metFORMIN HCl 500 MG TABLET PO ×2 (08:14→17:08)
[2021-12-03] MEDS: Fluticasone Propionate Nasal 16 GM SPRAY 1 SPRAY NOSTRIL-B ×2 (08:15→20:59)
[2021-12-03] MEDS: polyethylene glycoL 3350 17 GM POWD.PACK PO ×2 (08:15→21:00)
[2021-12-03] MEDS: Multivitamin TABLET 1 TAB PO (08:15)
[2021-12-03] MEDS: Albuterol Sulfate 90 MCG 8 GM INHALER 2 PUFF INHALE ×2 (08:15→20:59)
[2021-12-03] MEDS: Sennosides 8.6 MG TABLET 17.2 MG PO ×2 (08:15→21:00)
[2021-12-03] MEDS: Lactulose 20 GM/30 ML SOLUTION PO ×2 (08:26→20:59)
[2021-12-03] MEDS: Milk of Magnesia 30 ML ORAL.SUSP PO (11:14)
[2021-12-03] MEDS: bisacodyL 5 MG TABLET.DR 10 MG PO (13:27)
--- NOTE | 2021-12-03 15:52 | HO.PSYCHPN ---
Subjective Subjective Date of Service: 12/03/21 Reason For Visit: schizoaffective disorder,bipolar type Subjective Notes: Conditional Voluntary Interim History: The nursing staff reported the patient cooperates at times with a straight cath. In general, there is no evidence of exacerbation of psychosis. Today, the [facility] team came and outdoor iced her transfer to another facility. Mental Status Exam Mental Status Exam Patient Appearance: Well Grooomed Patient Orientation: Person Level of Consciousness: Awake Patient Behavior: Cooperative Mood Description: Constricted Affect Description: Labile Patient Cognition Impaired: Yes Ability to Follow Directions: Good Speech Pattern: Clear Memory Description: Intact Hallucinations: None Delusions: Paranoid Ideation Thought Process: Linear Thought Content: positive for Circumstantial Judgement: Fair Diagnostics Vital Signs (24Hr): Vital Signs - 24 hr 12/02/21 20:01 12/03/21 07:20 Temperature 98.3 F 97.5 F Pulse Rate 85 92 Respiratory Rate 17 18 Blood Pressure 127/88 110/66 Pulse Oximetry 95 95 BMI result Body Mass Index 26.6 Labs Results: 11/24/21 08:26 12/02/21 08:14 Labs: Laboratory Results - last 48 hr 12/02/21 08:14 Creatinine 1.52 H Estim Creat Clear Calc 33.6 Estimated GFR 33 Imaging Radiology Impressions: ITS Impressions Venous Duplex 11/25/21 11:03 IMPRESSION: No DVT demonstrated in the right lower extremity. Medications Medications Current Medications Acetaminophen (Acetaminophen 325 Mg Tablet) 650 mg PO Q6H PRN PRN Reason: Headache/Pain Mild Scale (1-3) Last Admin: 12/02/21 13:03 Dose: 650 mg Documented by: Al Hydroxide/Mg Hydroxide (Magnesium Hydrox/Alum Hydrox 30 Ml Oral.Susp) 30 ml PO Q6H PRN PRN Reason: Heartburn/Nausea Last Admin: 11/29/21 20:53 Dose: 30 ml Documented by: Albuterol Sulfate (Albuterol Sulfate 90 Mcg 8 Gm Inhaler) 2 puff INHALE Q6H PRN PRN Reason: asthma Last Admin: 12/03/21 08:15 Dose: 2 puff Documented by: Amlodipine Besylate (Amlodipine Besylate 2.5 Mg Tablet) 2.5 mg PO DAILY [facility]; Protocol Last Admin: 12/03/21 08:14 Dose: 2.5 mg Documented by: Aspirin (Aspirin 81 Mg Tab.Chew) 81 mg PO DAILY [facility] Last Admin: 12/03/21 08:14 Dose: 81 mg Documented by: Bisacodyl (Bisacodyl 5 Mg Tablet.) 10 mg PO DAILY PRN PRN Reason: Constipation Last Admin: 12/03/21 13:27 Dose: 10 mg Documented by: Budesonide (Budesonide 180 Mcg Aer.Pow.Ba) 2 puff INHALE RBID [facility] Last Admin: 12/03/21 08:20 Dose: Not Given Documented by: Divalproex Sodium (Divalproex Sodium 500 Mg Tablet.) 500 mg PO BEDTIME [facility] Last Admin: 12/02/21 20:25 Dose: 500 mg Documented by: Divalproex Sodium (Divalproex Sodium 250 Mg Tablet.) 250 mg PO BEDTIME [facility] Last Admin: 12/02/21 20:25 Dose: 250 mg Documented by: Docusate Sodium (Docusate Sodium 100 Mg Capsule) 100 mg PO BID PRN PRN Reason: constipation Last Admin: 11/29/21 20:57 Dose: 100 mg Documented by: Fluticasone Propionate (Fluticasone Propionate Nasal 16 Gm [place]) 1 spray NOSTRIL-B BID [facility] Last Admin: 12/03/21 08:15 Dose: 1 spray Documented by: Hydroxyzine HCl (Hydroxyzine Hcl 25 Mg Tablet) 25 mg PO Q6H PRN PRN Reason: Anxiety Last Admin: 11/27/21 00:30 Dose: 25 mg Documented by: Ibuprofen (Ibuprofen 600 Mg Tablet) 600 mg PO Q8H PRN PRN Reason: mod-severe pain, fever Last Admin: 12/02/21 23:59 Dose: 600 mg Documented by: Lactulose (Lactulose 20 Gm/30 Ml Solution) 20 gm PO BID PRN PRN Reason: constipation Last Admin: 12/03/21 08:26 Dose: 20 gm Documented by: Loperamide HCl (Loperamide Hcl 2 Mg Capsule) 2 mg PO Q6H PRN PRN Reason: diarrhea Loratadine (Loratadine 10 Mg Tablet) 10 mg PO DAILY [facility] Last Admin: 12/03/21 08:14 Dose: 10 mg Documented by: Magnesium Hydroxide (Milk Of Magnesia 30 Ml Oral.Susp) 30 ml PO DAILY PRN PRN Reason: Constipation Last Admin: 12/03/21 11:14 Dose: 30 ml Documented by: Metformin HCl (Metformin Hcl 500 Mg Tablet) 500 mg PO BIDWM [facility] Last Admin: 12/03/21 08:14 Dose: 500 mg Documented by: Montelukast Sodium (Montelukast Sodium 10 Mg Tablet) 10 mg PO BEDTIME [facility] Last Admin: 12/02/21 20:25 Dose: 10 mg Documented by: Multivitamins/Vitamin C (Multivitamin Tablet) 1 tab PO DAILY [facility] Last Admin: 12/03/21 08:15 Dose: 1 tab Documented by: Olanzapine (Olanzapine 10 Mg Tablet) 20 mg PO BEDTIME [facility] Last Admin: 12/02/21 20:24 Dose: 20 mg Documented by: Omeprazole (Omeprazole 20 Mg Capsule.Dr) 20 mg PO DAILY@0630 [facility] Last Admin: 12/03/21 06:05 Dose: 20 mg Documented by: Ondansetron HCl (Ondansetron Odt 8 Mg Tab.Rapdis) 8 mg TRANSLINGU Q8H PRN PRN Reason: Nausea Last Admin: 12/02/21 16:20 Dose: 8 mg Documented by: Polyethylene Glycol (Polyethylene Glycol 3350 17 Gm Powd.Pack) 17 gm PO BID [facility] Last Admin: 12/03/21 08:15 Dose: 17 gm Documented by: Potassium Chloride (Potassium Chloride Er 10 Meq Capsule.Er) 10 meq PO Q48H [facility] Last Admin: 12/02/21 20:25 Dose: 10 meq Documented by: Prochlorperazine Maleate (Prochlorperazine Maleate 5 Mg Tablet) 5 mg PO TID PRN PRN Reason: nausea, vomiting Last Admin: 11/26/21 18:16 Dose: 5 mg Documented by: Quetiapine Fumarate (Quetiapine Fumarate 50 Mg Tablet) 50 mg PO BEDTIME [facility] Last Admin: 12/02/21 20:27 Dose: 50 mg Documented by: Quetiapine Fumarate (Quetiapine Fumarate 50 Mg Tablet) 50 mg PO BID PRN PRN Reason: agitation, anxiety Last Admin: 11/22/21 05:37 Dose: 50 mg Documented by: Senna (Sennosides 8.6 Mg Tablet) 17.2 mg PO BID [facility] Last Admin: 12/03/21 08:15 Dose: 17.2 mg Documented by: Simethicone (Simethicone 80 Mg Tab.Chew) 80 mg PO QIDWMHS PRN PRN Reason: gas Sodium Biphosphate/Sodium Phosphate (Sodium Phosphate,[place]-Dibasic 133 Ml Enema) 133 ml [place] ONCE PRN PRN Reason: constipation Tamsulosin HCl (Tamsulosin Hcl 0.4 Mg Capsule) 0.8 mg PO BEDTIME [facility] Last Admin: 12/02/21 20:24 Dose: 0.8 mg Documented by: Trazodone HCl (Trazodone Hcl 50 Mg Tablet) 50 mg PO BEDTIME PRN PRN Reason: Insomnia Last Admin: 12/02/21 20:26 Dose: 50 mg Documented by: Trimethoprim/Sulfamethoxazole (Sulfamethox/Trimeth 800/160 Tablet) 1 tab PO Q12H [facility] Last Admin: 12/03/21 06:06 Dose: 1 tab Documented by: Allergies Allergies Allergy/AdvReac Type Severity Reaction Status Date / Time clozapine [From Clozaril] Allergy Unknown decreased Verified 11/16/21 19:39 WBC haloperidol [From Haldol] Allergy Unknown unknown Verified 11/16/21 19:36 cat dander Allergy Unknown Verified 11/16/21 21:31 house dust Allergy Unknown Verified 11/16/21 21:31 Phenothiazines Allergy Unknown Verified 11/16/21 21:31 wool Allergy Unknown Verified 11/16/21 21:31 Assessment & Plan Assessment & Plan (1) Urinary retention with incomplete bladder emptying: Status: Acute Code(s): R33.9 - Retention of urine, unspecified Plan The patient is a 76-year-old female with a long history of schizoaffective disorder and endometrial cancer stage IV, terminal admitted from [facility] for a suicidal attempt by overdose of Tylenol but it seems that it was impulsive due to anger at her assisted living facility. Plan Continue same medications, this moment at baseline Waiting for placement I spent minutes with the patient and/or on the patient floor today, greater than?50% of which was spent counseling/coordinating care. Reason for contiued inpatient stay Substantial Risk for: inability to function, rapid decompensation and med/psych decompensation
[2021-12-03 20:06] VITALS: BP 101/58; PULSE 85; RESP 17; TEMP 37.2; O2SAT 93
[2021-12-03] MEDS: QUEtiapine Fumarate 50 MG TABLET PO (21:00)
[2021-12-03] MEDS: OLANZapine 10 MG TABLET 20 MG PO (21:00)
[2021-12-03] MEDS: Docusate Sodium 100 MG CAPSULE PO (21:00)
[2021-12-03] MEDS: Ibuprofen 600 MG TABLET PO (21:01)
[2021-12-03] MEDS: Montelukast Sodium 10 MG TABLET PO (21:01)
[2021-12-03] MEDS: traZODone HCL 50 MG TABLET PO (21:02)
[2021-12-03] MEDS: Tamsulosin HCL 0.4 MG CAPSULE 0.8 MG PO (21:02)
[2021-12-03] MEDS: Divalproex Sodium 500 MG TABLET.DR PO (21:02)
[2021-12-03] MEDS: Divalproex Sodium 250 MG TABLET.DR PO (21:02)
[2021-12-03] MEDS: clonazePAM 0.5 MG TABLET 1.5 MG PO (21:40)
[2021-12-03] MEDS: oxyCODONE HCl Immed Release 5 MG TABLET 10 MG PO (21:41)
[2021-12-04] MEDS: clonazePAM 0.5 MG TABLET 1.5 MG PO ×2 (00:55→21:09)
[2021-12-04] MEDS: Acetaminophen 325 MG TABLET 650 MG PO (01:00)
[2021-12-04 06:00] VITALS: BP 110/62; RESP 15; TEMP 36.2; O2SAT 77
[2021-12-04] MEDS: Omeprazole 20 MG CAPSULE.DR PO (06:40)
--- NOTE | 2021-12-04 07:48 | P.PNPSI_ITS ---
Subjective Subjective Date of Service: 12/04/21 Reason For Visit: schizoaffective disorder,bipolar type Interim History: 12/03:The nursing staff reported the patient cooperates at times with a straight cath. In general, there is no evidence of exacerbation of psychosis. Today, the [facility] team came and outdoor iced her transfer to another facility. 12/04: Pleasant , cooperative. Was sleepy from opioid med so was reluctant to participate. Pt is aware of placement thru [facility] Medication Compliance: Yes Review of Systems Review of Systems No new. Chronic pain already noted and being treated Constitutional: Reports as per HPI and Reports no additional constitutional complaints Cardiovascular: Reports as per HPI and Reports no additional cardiovascular complaints Respiratory: Reports as per HPI and Reports no additional respiratory complaints Gastrointestinal: Reports as per HPI and Reports no additional gastrointestinal complaints Musculoskeletal: Reports no additional musculoskeletal complaints and Reports as per HPI Reports system reviewed and no additional complaints, except as documented and Reports as per HPI Mental Status Exam Mental Status Exam Narrative: Pleasant. Hospital clothing and for self-care. Quickly goes off track during interview with loosening of association. Guarded. Does appear paranoid with bizarre delusions. Denied depression. No evidence of SI or HI. Insight and judgment limited Patient Appearance: Well Grooomed Patient Orientation: Person Level of Consciousness: Awake Patient Behavior: Cooperative Mood Description: Constricted Affect Description: Labile Patient Cognition Impaired: Yes Ability to Follow Directions: Good Speech Pattern: Clear Memory Description: Intact Diagnostics Vital Signs (24Hr): Vital Signs - 24 hr 12/03/21 20:06 Temperature 98.9 F Pulse Rate 85 Respiratory Rate 17 Blood Pressure 101/58 L Pulse Oximetry 93 BMI result [place] 4 Body Mass Index [place] 4 26.6 [place] 4 [place] 4 Labs Results: 11/24/21 08:26 12/02/21 08:14 Labs: Laboratory Results - last 48 hr 12/02/21 08:14 Creatinine 1.52 H Estim Creat Clear Calc 33.6 Estimated GFR 33 Imaging Radiology Impressions: ITS Impressions Venous Duplex 11/25/21 11:03 IMPRESSION: No DVT demonstrated in the right lower extremity. Medications Medications Current Medications Acetaminophen (Acetaminophen 325 Mg Tablet) 650 mg PO Q6H PRN PRN Reason: Headache/Pain Mild Scale (1-3) Last Admin: 12/04/21 01:00 Dose: 650 mg Documented by: Al Hydroxide/Mg Hydroxide (Magnesium Hydrox/Alum Hydrox 30 Ml Oral.Susp) 30 ml PO Q6H PRN PRN Reason: Heartburn/Nausea Last Admin: 11/29/21 20:53 Dose: 30 ml Documented by: Albuterol Sulfate (Albuterol Sulfate 90 Mcg 8 Gm Inhaler) 2 puff INHALE Q6H PRN PRN Reason: asthma Last Admin: 12/03/21 20:59 Dose: 2 puff Documented by: Amlodipine Besylate (Amlodipine Besylate 2.5 Mg Tablet) 2.5 mg PO DAILY [facility]; Protocol Last Admin: 12/03/21 08:14 Dose: 2.5 mg Documented by: Aspirin (Aspirin 81 Mg Tab.Chew) 81 mg PO DAILY [facility] Last Admin: 12/03/21 08:14 Dose: 81 mg Documented by: Bisacodyl (Bisacodyl 5 Mg Tablet.) 10 mg PO DAILY PRN PRN Reason: Constipation Last Admin: 12/03/21 13:27 Dose: 10 mg Documented by: Budesonide (Budesonide 180 Mcg Aer.Pow.Ba) 2 puff INHALE RBID [facility] Last Admin: 12/03/21 21:14 Dose: Not Given Documented by: Clonazepam (Clonazepam 0.5 Mg Tablet) 1.5 mg PO BID [facility] Last Admin: 12/03/21 21:40 Dose: 1.5 mg Documented by: Clonazepam (Clonazepam 0.5 Mg Tablet) 1.5 mg PO DAILY PRN PRN Reason: anxiety Last Admin: 12/04/21 00:55 Dose: 1.5 mg Documented by: Divalproex Sodium (Divalproex Sodium 500 Mg Tablet.) 500 mg PO BEDTIME [facility] Last Admin: 12/03/21 21:02 Dose: 500 mg Documented by: Divalproex Sodium (Divalproex Sodium 250 Mg Tablet.) 250 mg PO BEDTIME [facility] Last Admin: 12/03/21 21:02 Dose: 250 mg Documented by: Docusate Sodium (Docusate Sodium 100 Mg Capsule) 100 mg PO BID PRN PRN Reason: constipation Last Admin: 12/03/21 21:00 Dose: 100 mg Documented by: Fluticasone Propionate (Fluticasone Propionate Nasal 16 Gm [place]) 1 spray NOSTRIL-B BID [facility] Last Admin: 12/03/21 20:59 Dose: 1 spray Documented by: Hydroxyzine HCl (Hydroxyzine Hcl 25 Mg Tablet) 25 mg PO Q6H PRN PRN Reason: Anxiety Last Admin: 11/27/21 00:30 Dose: 25 mg Documented by: Ibuprofen (Ibuprofen 600 Mg Tablet) 600 mg PO Q8H PRN PRN Reason: mod-severe pain, fever Last Admin: 12/03/21 21:01 Dose: 600 mg Documented by: Lactulose (Lactulose 20 Gm/30 Ml Solution) 20 gm PO BID PRN PRN Reason: constipation Last Admin: 12/03/21 20:59 Dose: 20 gm Documented by: Loperamide HCl (Loperamide Hcl 2 Mg Capsule) 2 mg PO Q6H PRN PRN Reason: diarrhea Loratadine (Loratadine 10 Mg Tablet) 10 mg PO DAILY [facility] Last Admin: 12/03/21 08:14 Dose: 10 mg Documented by: Magnesium Hydroxide (Milk Of Magnesia 30 Ml Oral.Susp) 30 ml PO DAILY PRN PRN Reason: Constipation Last Admin: 12/03/21 11:14 Dose: 30 ml Documented by: Metformin HCl (Metformin Hcl 500 Mg Tablet) 500 mg PO BIDWM [facility] Last Admin: 12/03/21 17:08 Dose: 500 mg Documented by: Montelukast Sodium (Montelukast Sodium 10 Mg Tablet) 10 mg PO BEDTIME [facility] Last Admin: 12/03/21 21:01 Dose: 10 mg Documented by: Multivitamins/Vitamin C (Multivitamin Tablet) 1 tab PO DAILY [facility] Last Admin: 12/03/21 08:15 Dose: 1 tab Documented by: Olanzapine (Olanzapine 10 Mg Tablet) 20 mg PO BEDTIME [facility] Last Admin: 12/03/21 21:00 Dose: 20 mg Documented by: Omeprazole (Omeprazole 20 Mg Capsule.Dr) 20 mg PO DAILY@0630 [facility] Last Admin: 12/04/21 06:40 Dose: 20 mg Documented by: Ondansetron HCl (Ondansetron Odt 8 Mg Tab.Rapdis) 8 mg TRANSLINGU Q8H PRN PRN Reason: Nausea Last Admin: 12/02/21 16:20 Dose: 8 mg Documented by: Oxycodone HCl (Oxycodone Hcl Immed Release 5 Mg Tablet) 10 mg PO Q4H PRN PRN Reason: mod-severe pain Last Admin: 12/03/21 21:41 Dose: 10 mg Documented by: Oxycodone HCl (Oxycodone Hcl Er 10 Mg Tab.Er.12h) 10 mg PO BID [facility] Last Admin: 12/03/21 21:41 Dose: 10 mg Documented by: Polyethylene Glycol (Polyethylene Glycol 3350 17 Gm Powd.Pack) 17 gm PO BID [facility] Last Admin: 12/03/21 21:00 Dose: 17 gm Documented by: Potassium Chloride (Potassium Chloride Er 10 Meq Capsule.Er) 10 meq PO Q48H [facility] Last Admin: 12/02/21 20:25 Dose: 10 meq Documented by: Prochlorperazine Maleate (Prochlorperazine Maleate 5 Mg Tablet) 5 mg PO TID PRN PRN Reason: nausea, vomiting Last Admin: 11/26/21 18:16 Dose: 5 mg Documented by: Quetiapine Fumarate (Quetiapine Fumarate 50 Mg Tablet) 50 mg PO BEDTIME [facility] Last Admin: 12/03/21 21:00 Dose: 50 mg Documented by: Quetiapine Fumarate (Quetiapine Fumarate 50 Mg Tablet) 50 mg PO BID PRN PRN Reason: agitation, anxiety Last Admin: 11/22/21 05:37 Dose: 50 mg Documented by: Senna (Sennosides 8.6 Mg Tablet) 17.2 mg PO BID [facility] Last Admin: 12/03/21 21:00 Dose: 17.2 mg Documented by: Simethicone (Simethicone 80 Mg Tab.Chew) 80 mg PO QIDWMHS PRN PRN Reason: gas Sodium Biphosphate/Sodium Phosphate (Sodium Phosphate,[place]-Dibasic 133 Ml Enema) 133 ml [place] ONCE PRN PRN Reason: constipation Tamsulosin HCl (Tamsulosin Hcl 0.4 Mg Capsule) 0.8 mg PO BEDTIME [facility] Last Admin: 12/03/21 21:02 Dose: 0.8 mg Documented by: Trazodone HCl (Trazodone Hcl 50 Mg Tablet) 50 mg PO BEDTIME PRN PRN Reason: Insomnia Last Admin: 12/03/21 21:02 Dose: 50 mg Documented by: Allergies Allergies Allergy/AdvReac Type Severity Reaction Status Date / Time clozapine [From Allergy Unknown decreased Verified 11/16/21 19:39 Clozaril] WBC haloperidol [From Allergy Unknown unknown Verified 11/16/21 19:36 Haldol] cat dander Allergy Unknown Verified 11/16/21 21:31 house dust Allergy Unknown Verified 11/16/21 21:31 Phenothiazines Allergy Unknown Verified 11/16/21 21:31 wool Allergy Unknown Verified 11/16/21 21:31 Assessment & Plan Assessment & Plan (1) Urinary retention with incomplete bladder emptying: Status: Acute Code(s): R33.9 - Retention of urine, unspecified Plan The patient is a 76-year-old female with a long history of schizoaffective disorder and endometrial cancer stage IV, terminal admitted from [facility] for a suicidal attempt by overdose of Tylenol but it seems that it was impulsive due to anger at her assisted living facility. Plan Continue same medications, this moment at baseline Waiting for placement 12/04: Ct Rx plan, Await placement I spent minutes with the patient and/or on the patient floor today, greater than?50% of which was spent counseling/coordinating care. Reason for contiued inpatient stay Substantial Risk for: inability to function and med/psych decompensation
[2021-12-04] MEDS: amLODIPine Besylate 2.5 MG TABLET PO (08:54)
[2021-12-04] MEDS: Multivitamin TABLET 1 TAB PO (08:54)
[2021-12-04] MEDS: Aspirin 81 MG TAB.CHEW PO (08:54)
[2021-12-04] MEDS: Sennosides 8.6 MG TABLET 17.2 MG PO ×2 (08:54→21:12)
[2021-12-04] MEDS: metFORMIN HCl 500 MG TABLET PO (08:54)
[2021-12-04] MEDS: Loratadine 10 MG TABLET PO (08:54)
[2021-12-04] MEDS: oxyCODONE HCl ER 10 MG TAB.ER.12H PO ×2 (08:55→21:12)
[2021-12-04] MEDS: polyethylene glycoL 3350 17 GM POWD.PACK PO ×2 (08:57→21:12)
[2021-12-04] MEDS: oxyCODONE HCl Immed Release 5 MG TABLET 10 MG PO ×3 (09:33→21:15)
[2021-12-04 18:00] VITALS: BP 169/76; PULSE 114; RESP 20; TEMP 36.8; O2SAT 97
--- NOTE | 2021-12-04 18:17 | PC.NURSE ---
Pt had unwitnessed fall in her bathroom at 1755. Pt with small amount of scraped skin to right elbow. Scraped skin cleaned and bandage applied. Pt unsure if she lost consciousness, alert and oriented to person, place and situation when assessed. Pt reports pain has increased to her right knee, which was edematous at 2+ before fall. The pt was able to stand with assist, and toileted and went to bed. The pt reports she tripped over my sock and fell . MD notified, advised right knee x-ray and head CT as fall was unwittnessed.
--- NOTE | 2021-12-04 18:45 | PC.NURSE ---
Pt's legal guardian notified of pt fall at 1830. Dev Pierre, phone number of [phone]. Message left with return number.
[2021-12-04] MEDS: Divalproex Sodium 500 MG TABLET.DR PO (21:09)
[2021-12-04] MEDS: Montelukast Sodium 10 MG TABLET PO (21:10)
[2021-12-04] MEDS: OLANZapine 10 MG TABLET 20 MG PO (21:10)
[2021-12-04] MEDS: Divalproex Sodium 250 MG TABLET.DR PO (21:10)
[2021-12-04] MEDS: Fluticasone Propionate Nasal 16 GM SPRAY 1 SPRAY NOSTRIL-B (21:10)
[2021-12-04] MEDS: QUEtiapine Fumarate 50 MG TABLET PO (21:12)
[2021-12-04] MEDS: Tamsulosin HCL 0.4 MG CAPSULE 0.8 MG PO (21:13)
[2021-12-04] MEDS: traZODone HCL 50 MG TABLET PO (21:35)
[2021-12-04] MEDS: Lactulose 20 GM/30 ML SOLUTION PO (21:35)
[2021-12-04 22:29] VITALS: BP 99/66; PULSE 73; RESP 17; TEMP 36.6; O2SAT 96
--- NOTE | 2021-12-05 04:03 | HO.PSYCHPN ---
Subjective Subjective Date of Service: 12/05/21 Reason For Visit: schizoaffective disorder,bipolar type Subjective Notes: Conditional Voluntary Interim History: 12/03:The nursing staff reported the patient cooperates at times with a straight cath. In general, there is no evidence of exacerbation of psychosis. Today, the [facility] team came and outdoor iced her transfer to another facility. 12/04: Pleasant , cooperative. Was sleepy from opioid med so was reluctant to participate. Pt is aware of placement thru [facility] 12/05: Remains much the same. Unwitnessed fall. Imaging Head CT and Rt knee is negative. Pt is on X meds that could contribute to fall. Got anxious when I mentioned Clonaz. Cathleen been on it x 20 years from [facility] States she fell bc of socks and foot drop. Review of Systems Review of Systems No new. Chronic pain already noted and being treated Constitutional: Reports as per HPI and Reports no additional constitutional complaints Cardiovascular: Reports as per HPI and Reports no additional cardiovascular complaints Respiratory: Reports as per HPI and Reports no additional respiratory complaints Gastrointestinal: Reports as per HPI and Reports no additional gastrointestinal complaints Musculoskeletal: Reports no additional musculoskeletal complaints and Reports as per HPI Reports system reviewed and no additional complaints, except as documented and Reports as per HPI Mental Status Exam Mental Status Exam Narrative: Pleasant. Hospital clothing and for self-care. Quickly goes off track during interview with loosening of association. Guarded. Does appear paranoid with bizarre delusions. Denied depression. No evidence of SI or HI. Insight and judgment limited Patient Appearance: Well Grooomed Patient Orientation: Person Level of Consciousness: Awake Patient Behavior: Cooperative Mood Description: Constricted Affect Description: Labile Patient Cognition Impaired: Yes Ability to Follow Directions: Good Speech Pattern: Clear Memory Description: Intact Diagnostics Vital Signs (24Hr): Vital Signs - 24 hr 12/04/21 06:00 12/04/21 18:00 12/04/21 22:29 Temperature 97.2 F 98.2 F 97.8 F Pulse Rate 114 H 73 Respiratory Rate 15 20 17 Blood Pressure 110/62 169/76 H 99/66 Pulse Oximetry 77 L 97 96 BMI result Body Mass Index 26.6 Labs Results: 11/24/21 08:26 12/02/21 08:14 Imaging Radiology Impressions: ITS Impressions Venous Duplex 11/25/21 11:03 IMPRESSION: No DVT demonstrated in the right lower extremity. Knee X-Ray 12/04/21 18:25 IMPRESSION: No visible acute fracture or dislocation. Small superior patellar enthesophyte. No abnormal joint effusion. Head CT 12/04/21 18:44 IMPRESSION: No acute intracranial pathology. Medications Medications Current Medications Acetaminophen (Acetaminophen 325 Mg Tablet) 650 mg PO Q6H PRN PRN Reason: Headache/Pain Mild Scale (1-3) Last Admin: 12/04/21 01:00 Dose: 650 mg Documented by: Al Hydroxide/Mg Hydroxide (Magnesium Hydrox/Alum Hydrox 30 Ml Oral.Susp) 30 ml PO Q6H PRN PRN Reason: Heartburn/Nausea Last Admin: 11/29/21 20:53 Dose: 30 ml Documented by: Albuterol Sulfate (Albuterol Sulfate 90 Mcg 8 Gm Inhaler) 2 puff INHALE Q6H PRN PRN Reason: asthma Last Admin: 12/03/21 20:59 Dose: 2 puff Documented by: Amlodipine Besylate (Amlodipine Besylate 2.5 Mg Tablet) 2.5 mg PO DAILY [facility]; Protocol Last Admin: 12/04/21 08:54 Dose: 2.5 mg Documented by: Aspirin (Aspirin 81 Mg Tab.Chew) 81 mg PO DAILY [facility] Last Admin: 12/04/21 08:54 Dose: 81 mg Documented by: Bisacodyl (Bisacodyl 5 Mg Tablet.) 10 mg PO DAILY PRN PRN Reason: Constipation Last Admin: 12/03/21 13:27 Dose: 10 mg Documented by: Budesonide (Budesonide 180 Mcg Aer.Pow.Ba) 2 puff INHALE RBID [facility] Last Admin: 12/04/21 21:37 Dose: Not Given Documented by: Clonazepam (Clonazepam 0.5 Mg Tablet) 1.5 mg PO BID [facility] Last Admin: 12/04/21 21:09 Dose: 1.5 mg Documented by: Clonazepam (Clonazepam 0.5 Mg Tablet) 1.5 mg PO DAILY PRN PRN Reason: anxiety Last Admin: 12/04/21 00:55 Dose: 1.5 mg Documented by: Divalproex Sodium (Divalproex Sodium 500 Mg Tablet.) 500 mg PO BEDTIME [facility] Last Admin: 12/04/21 21:09 Dose: 500 mg Documented by: Divalproex Sodium (Divalproex Sodium 250 Mg Tablet.) 250 mg PO BEDTIME [facility] Last Admin: 12/04/21 21:10 Dose: 250 mg Documented by: Docusate Sodium (Docusate Sodium 100 Mg Capsule) 100 mg PO BID PRN PRN Reason: constipation Last Admin: 12/03/21 21:00 Dose: 100 mg Documented by: Fluticasone Propionate (Fluticasone Propionate Nasal 16 Gm [place]) 1 spray NOSTRIL-B BID [facility] Last Admin: 12/04/21 21:10 Dose: 1 spray Documented by: Hydroxyzine HCl (Hydroxyzine Hcl 25 Mg Tablet) 25 mg PO Q6H PRN PRN Reason: Anxiety Last Admin: 11/27/21 00:30 Dose: 25 mg Documented by: Ibuprofen (Ibuprofen 600 Mg Tablet) 600 mg PO Q8H PRN PRN Reason: mod-severe pain, fever Last Admin: 12/03/21 21:01 Dose: 600 mg Documented by: Lactulose (Lactulose 20 Gm/30 Ml Solution) 20 gm PO BID PRN PRN Reason: constipation Last Admin: 12/04/21 21:35 Dose: 20 gm Documented by: Loperamide HCl (Loperamide Hcl 2 Mg Capsule) 2 mg PO Q6H PRN PRN Reason: diarrhea Loratadine (Loratadine 10 Mg Tablet) 10 mg PO DAILY [facility] Last Admin: 12/04/21 08:54 Dose: 10 mg Documented by: Magnesium Hydroxide (Milk Of Magnesia 30 Ml Oral.Susp) 30 ml PO DAILY PRN PRN Reason: Constipation Last Admin: 12/03/21 11:14 Dose: 30 ml Documented by: Metformin HCl (Metformin Hcl 500 Mg Tablet) 500 mg PO BIDWM [facility] Last Admin: 12/04/21 17:42 Dose: Not Given Documented by: Montelukast Sodium (Montelukast Sodium 10 Mg Tablet) 10 mg PO BEDTIME [facility] Last Admin: 12/04/21 21:10 Dose: 10 mg Documented by: Multivitamins/Vitamin C (Multivitamin Tablet) 1 tab PO DAILY [facility] Last Admin: 12/04/21 08:54 Dose: 1 tab Documented by: Olanzapine (Olanzapine 10 Mg Tablet) 20 mg PO BEDTIME [facility] Last Admin: 12/04/21 21:10 Dose: 20 mg Documented by: Omeprazole (Omeprazole 20 Mg Capsule.) 20 mg PO DAILY@0630 [facility] Last Admin: 12/04/21 06:40 Dose: 20 mg Documented by: Ondansetron HCl (Ondansetron Odt 8 Mg Tab.Rapdis) 8 mg TRANSLINGU Q8H PRN PRN Reason: Nausea Last Admin: 12/02/21 16:20 Dose: 8 mg Documented by: Oxycodone HCl (Oxycodone Hcl Immed Release 5 Mg Tablet) 10 mg PO Q4H PRN PRN Reason: mod-severe pain Last Admin: 12/04/21 21:15 Dose: 10 mg Documented by: Oxycodone HCl (Oxycodone Hcl Er 10 Mg Tab.Er.12h) 10 mg PO BID [facility] Last Admin: 12/04/21 21:12 Dose: 10 mg Documented by: Polyethylene Glycol (Polyethylene Glycol 3350 17 Gm Powd.Pack) 17 gm PO BID [facility] Last Admin: 12/04/21 21:12 Dose: 17 gm Documented by: Potassium Chloride (Potassium Chloride Er 10 Meq Capsule.Er) 10 meq PO Q48H [facility] Last Admin: 12/04/21 21:09 Dose: 10 meq Documented by: Prochlorperazine Maleate (Prochlorperazine Maleate 5 Mg Tablet) 5 mg PO TID PRN PRN Reason: nausea, vomiting Last Admin: 11/26/21 18:16 Dose: 5 mg Documented by: Quetiapine Fumarate (Quetiapine Fumarate 50 Mg Tablet) 50 mg PO BEDTIME [facility] Last Admin: 12/04/21 21:12 Dose: 50 mg Documented by: Quetiapine Fumarate (Quetiapine Fumarate 50 Mg Tablet) 50 mg PO BID PRN PRN Reason: agitation, anxiety Last Admin: 11/22/21 05:37 Dose: 50 mg Documented by: Senna (Sennosides 8.6 Mg Tablet) 17.2 mg PO BID [facility] Last Admin: 12/04/21 21:12 Dose: 17.2 mg Documented by: Simethicone (Simethicone 80 Mg Tab.Chew) 80 mg PO QIDWMHS PRN PRN Reason: gas Sodium Biphosphate/Sodium Phosphate (Sodium Phosphate,[place]-Dibasic 133 Ml Enema) 133 ml [place] ONCE PRN PRN Reason: constipation Tamsulosin HCl (Tamsulosin Hcl 0.4 Mg Capsule) 0.8 mg PO BEDTIME [facility] Last Admin: 12/04/21 21:13 Dose: 0.8 mg Documented by: Trazodone HCl (Trazodone Hcl 50 Mg Tablet) 50 mg PO BEDTIME PRN PRN Reason: Insomnia Last Admin: 12/04/21 21:35 Dose: 50 mg Documented by: Allergies Allergies Allergy/AdvReac Type Severity Reaction Status Date / Time clozapine [From Clozaril] Allergy Unknown decreased Verified 11/16/21 19:39 WBC haloperidol [From Haldol] Allergy Unknown unknown Verified 11/16/21 19:36 cat dander Allergy Unknown Verified 11/16/21 21:31 house dust Allergy Unknown Verified 11/16/21 21:31 Phenothiazines Allergy Unknown Verified 11/16/21 21:31 wool Allergy Unknown Verified 11/16/21 21:31 Assessment & Plan Assessment & Plan (1) Urinary retention with incomplete bladder emptying: Status: Acute Code(s): R33.9 - Retention of urine, unspecified Plan The patient is a 76-year-old female with a long history of schizoaffective disorder and endometrial cancer stage IV, terminal admitted from [facility] for a suicidal attempt by overdose of Tylenol but it seems that it was impulsive due to anger at her assisted living facility. Plan Continue same medications, this moment at baseline Waiting for placement 12/04: Ct Rx plan, Await placement 12/05: Ct Rx plan. Primary team to review meds and low BP related fall. Hold Amlodipine. Perhaps reduction in polypharmacy . BP noted to be low I spent minutes with the patient and/or on the patient floor today, greater than?50% of which was spent counseling/coordinating care. Reason for contiued inpatient stay Substantial Risk for: med/psych decompensation
[2021-12-05] MEDS: Omeprazole 20 MG CAPSULE.DR PO (05:31)
[2021-12-05] MEDS: oxyCODONE HCl Immed Release 5 MG TABLET 10 MG PO ×3 (05:31→20:13)
[2021-12-05] MEDS: Aspirin 81 MG TAB.CHEW PO (09:25)
[2021-12-05] MEDS: Loratadine 10 MG TABLET PO (09:25)
[2021-12-05] MEDS: Fluticasone Propionate Nasal 16 GM SPRAY 1 SPRAY NOSTRIL-B ×2 (09:25→20:13)
[2021-12-05] MEDS: Sennosides 8.6 MG TABLET 17.2 MG PO ×2 (09:25→20:11)
[2021-12-05] MEDS: oxyCODONE HCl ER 10 MG TAB.ER.12H PO ×2 (09:25→20:12)
[2021-12-05] MEDS: Multivitamin TABLET 1 TAB PO (09:25)
[2021-12-05] MEDS: metFORMIN HCl 500 MG TABLET PO (09:25)
[2021-12-05] MEDS: Albuterol Sulfate 90 MCG 8 GM INHALER 2 PUFF INHALE ×2 (09:32→20:13)
[2021-12-05] MEDS: Lactulose 20 GM/30 ML SOLUTION PO (09:32)
[2021-12-05] MEDS: polyethylene glycoL 3350 17 GM POWD.PACK PO (09:34)
[2021-12-05 13:13] VITALS: BP 106/70; PULSE 83; TEMP 36.4; O2SAT 97
[2021-12-05] MEDS: Acetaminophen 325 MG TABLET 650 MG PO (14:38)
[2021-12-05 19:54] VITALS: BP 117/70; PULSE 80; RESP 17; TEMP 36.5; O2SAT 95
[2021-12-05] MEDS: Divalproex Sodium 250 MG TABLET.DR PO (20:11)
[2021-12-05] MEDS: QUEtiapine Fumarate 50 MG TABLET PO (20:11)
[2021-12-05] MEDS: OLANZapine 10 MG TABLET 20 MG PO (20:12)
[2021-12-05] MEDS: Montelukast Sodium 10 MG TABLET PO (20:12)
[2021-12-05] MEDS: Tamsulosin HCL 0.4 MG CAPSULE 0.8 MG PO (20:12)
[2021-12-05] MEDS: clonazePAM 0.5 MG TABLET 1.5 MG PO (20:13)
[2021-12-05] MEDS: Divalproex Sodium 500 MG TABLET.DR PO (20:13)
[2021-12-06] MEDS: oxyCODONE HCl Immed Release 5 MG TABLET 10 MG PO ×4 (04:52→20:51)
[2021-12-06] MEDS: Omeprazole 20 MG CAPSULE.DR PO (04:52)
[2021-12-06 07:55] VITALS: BP 121/77; PULSE 96; RESP 16; TEMP 36.8; O2SAT 95
[2021-12-06] MEDS: Lactulose 20 GM/30 ML SOLUTION PO ×2 (08:41→20:50)
[2021-12-06] MEDS: metFORMIN HCl 500 MG TABLET PO ×2 (08:42→16:33)
[2021-12-06] MEDS: Loratadine 10 MG TABLET PO (08:42)
[2021-12-06] MEDS: oxyCODONE HCl ER 10 MG TAB.ER.12H PO ×2 (08:42→20:49)
[2021-12-06] MEDS: Aspirin 81 MG TAB.CHEW PO (08:42)
[2021-12-06] MEDS: Sennosides 8.6 MG TABLET 17.2 MG PO ×2 (08:42→20:50)
[2021-12-06] MEDS: Multivitamin TABLET 1 TAB PO (08:42)
[2021-12-06] MEDS: Albuterol Sulfate 90 MCG 8 GM INHALER 2 PUFF INHALE (08:44)
[2021-12-06] MEDS: Fluticasone Propionate Nasal 16 GM SPRAY 1 SPRAY NOSTRIL-B ×2 (08:45→20:48)
--- NOTE | 2021-12-06 10:38 | P.PNPSI_ITS ---
Subjective Subjective Date of Service: 12/06/21 Reason For Visit: schizoaffective disorder,bipolar type Subjective Notes: Conditional Voluntary Guardianship: No Medical Problems Affecting Mental Status: Yes Interim History: Patient alert cooperative had a fall the other day denies fall today states feeling alert not overly medicated aware of potential transfer cooperative engagement seen Patient's blood pressure seems stable no complaints of dizziness she is on clonazepam 1.5 twice a day Mental Status Exam Mental Status Exam Narrative: Was cooperative engaged when seen good eye contact looking forward to discharge some anxiety irritability no si Patient Appearance: Well Grooomed Patient Orientation: Person Level of Consciousness: Awake Patient Behavior: Cooperative Mood Description: Constricted and Apprehensive Affect Description: Labile and Apprehensive Patient Cognition Impaired: Yes Ability to Follow Directions: Good Speech Pattern: Clear Memory Description: Intact Abnormal Motor Activity Signs and Symptoms: Psychomotor Retardation Diagnostics Vital Signs (24Hr): Vital Signs - 24 hr 12/05/21 13:13 12/05/21 19:54 Temperature 97.5 F 97.7 F Pulse Rate 83 80 Respiratory Rate 17 Blood Pressure 106/70 117/70 Pulse Oximetry 97 95 BMI result Body Mass Index 26.6 Labs Results: 11/24/21 08:26 12/02/21 08:14 Imaging Radiology Impressions: ITS Impressions Venous Duplex 11/25/21 11:03 IMPRESSION: No DVT demonstrated in the right lower extremity. Knee X-Ray 12/04/21 18:25 IMPRESSION: No visible acute fracture or dislocation. Small superior patellar enthesophyte. No abnormal joint effusion. Head CT 12/04/21 18:44 IMPRESSION: No acute intracranial pathology. Medications Medications Current Medications Acetaminophen (Acetaminophen 325 Mg Tablet) 650 mg PO Q6H PRN PRN Reason: Headache/Pain Mild Scale (1-3) Last Admin: 12/05/21 14:38 Dose: 650 mg Documented by: Al Hydroxide/Mg Hydroxide (Magnesium Hydrox/Alum Hydrox 30 Ml Oral.Susp) 30 ml PO Q6H PRN PRN Reason: Heartburn/Nausea Last Admin: 11/29/21 20:53 Dose: 30 ml Documented by: Albuterol Sulfate (Albuterol Sulfate 90 Mcg 8 Gm Inhaler) 2 puff INHALE Q6H PRN PRN Reason: asthma Last Admin: 12/06/21 08:44 Dose: 2 puff Documented by: Amlodipine Besylate (Amlodipine Besylate 2.5 Mg Tablet) 2.5 mg PO DAILY [facility]; Protocol Last Admin: 12/04/21 08:54 Dose: 2.5 mg Documented by: Aspirin (Aspirin 81 Mg Tab.Chew) 81 mg PO DAILY [facility] Last Admin: 12/06/21 08:42 Dose: 81 mg Documented by: Bisacodyl (Bisacodyl 5 Mg Tablet.) 10 mg PO DAILY PRN PRN Reason: Constipation Last Admin: 12/03/21 13:27 Dose: 10 mg Documented by: Budesonide (Budesonide 180 Mcg Aer.Pow.Ba) 2 puff INHALE RBID [facility] Last Admin: 12/06/21 08:44 Dose: Not Given Documented by: Clonazepam (Clonazepam 0.5 Mg Tablet) 1.5 mg PO BID [facility] Last Admin: 12/06/21 08:45 Dose: Not Given Documented by: Clonazepam (Clonazepam 0.5 Mg Tablet) 1.5 mg PO DAILY PRN PRN Reason: anxiety Last Admin: 12/04/21 00:55 Dose: 1.5 mg Documented by: Divalproex Sodium (Divalproex Sodium 500 Mg Tablet.) 500 mg PO BEDTIME [facility] Last Admin: 12/05/21 20:13 Dose: 500 mg Documented by: Divalproex Sodium (Divalproex Sodium 250 Mg Tablet.) 250 mg PO BEDTIME [facility] Last Admin: 12/05/21 20:11 Dose: 250 mg Documented by: Docusate Sodium (Docusate Sodium 100 Mg Capsule) 100 mg PO BID PRN PRN Reason: constipation Last Admin: 12/03/21 21:00 Dose: 100 mg Documented by: Fluticasone Propionate (Fluticasone Propionate Nasal 16 Gm [place]) 1 spray NOSTRIL-B BID [facility] Last Admin: 12/06/21 08:45 Dose: 1 spray Documented by: Hydroxyzine HCl (Hydroxyzine Hcl 25 Mg Tablet) 25 mg PO Q6H PRN PRN Reason: Anxiety Last Admin: 11/27/21 00:30 Dose: 25 mg Documented by: Ibuprofen (Ibuprofen 600 Mg Tablet) 600 mg PO Q8H PRN PRN Reason: mod-severe pain, fever Last Admin: 12/03/21 21:01 Dose: 600 mg Documented by: Lactulose (Lactulose 20 Gm/30 Ml Solution) 20 gm PO BID PRN PRN Reason: constipation Last Admin: 12/06/21 08:41 Dose: 20 gm Documented by: Loperamide HCl (Loperamide Hcl 2 Mg Capsule) 2 mg PO Q6H PRN PRN Reason: diarrhea Loratadine (Loratadine 10 Mg Tablet) 10 mg PO DAILY [facility] Last Admin: 12/06/21 08:42 Dose: 10 mg Documented by: Magnesium Hydroxide (Milk Of Magnesia 30 Ml Oral.Susp) 30 ml PO DAILY PRN PRN Reason: Constipation Last Admin: 12/03/21 11:14 Dose: 30 ml Documented by: Metformin HCl (Metformin Hcl 500 Mg Tablet) 500 mg PO BIDWM [facility] Last Admin: 12/06/21 08:42 Dose: 500 mg Documented by: Montelukast Sodium (Montelukast Sodium 10 Mg Tablet) 10 mg PO BEDTIME [facility] Last Admin: 12/05/21 20:12 Dose: 10 mg Documented by: Multivitamins/Vitamin C (Multivitamin Tablet) 1 tab PO DAILY [facility] Last Admin: 12/06/21 08:42 Dose: 1 tab Documented by: Olanzapine (Olanzapine 10 Mg Tablet) 20 mg PO BEDTIME [facility] Last Admin: 12/05/21 20:12 Dose: 20 mg Documented by: Omeprazole (Omeprazole 20 Mg Capsule.Dr) 20 mg PO DAILY@0630 [facility] Last Admin: 12/06/21 04:52 Dose: 20 mg Documented by: Ondansetron HCl (Ondansetron Odt 8 Mg Tab.Rapdis) 8 mg TRANSLINGU Q8H PRN PRN Reason: Nausea Last Admin: 12/02/21 16:20 Dose: 8 mg Documented by: Oxycodone HCl (Oxycodone Hcl Immed Release 5 Mg Tablet) 10 mg PO Q4H PRN PRN Reason: mod-severe pain Last Admin: 12/06/21 04:52 Dose: 10 mg Documented by: Oxycodone HCl (Oxycodone Hcl Er 10 Mg Tab.Er.12h) 10 mg PO BID [facility] Last Admin: 12/06/21 08:42 Dose: 10 mg Documented by: Polyethylene Glycol (Polyethylene Glycol 3350 17 Gm Powd.Pack) 17 gm PO BID [facility] Last Admin: 12/06/21 08:46 Dose: Not Given Documented by: Potassium Chloride (Potassium Chloride Er 10 Meq Capsule.Er) 10 meq PO Q48H [facility] Last Admin: 12/04/21 21:09 Dose: 10 meq Documented by: Prochlorperazine Maleate (Prochlorperazine Maleate 5 Mg Tablet) 5 mg PO TID PRN PRN Reason: nausea, vomiting Last Admin: 11/26/21 18:16 Dose: 5 mg Documented by: Quetiapine Fumarate (Quetiapine Fumarate 50 Mg Tablet) 50 mg PO BEDTIME [facility] Last Admin: 12/05/21 20:11 Dose: 50 mg Documented by: Quetiapine Fumarate (Quetiapine Fumarate 50 Mg Tablet) 50 mg PO BID PRN PRN Reason: agitation, anxiety Last Admin: 11/22/21 05:37 Dose: 50 mg Documented by: Senna (Sennosides 8.6 Mg Tablet) 17.2 mg PO BID [facility] Last Admin: 12/06/21 08:42 Dose: 17.2 mg Documented by: Simethicone (Simethicone 80 Mg Tab.Chew) 80 mg PO QIDWMHS PRN PRN Reason: gas Sodium Biphosphate/Sodium Phosphate (Sodium Phosphate,[place]-Dibasic 133 Ml Enema) 133 ml [place] ONCE PRN PRN Reason: constipation Tamsulosin HCl (Tamsulosin Hcl 0.4 Mg Capsule) 0.8 mg PO BEDTIME [facility] Last Admin: 12/05/21 20:12 Dose: 0.8 mg Documented by: Trazodone HCl (Trazodone Hcl 50 Mg Tablet) 50 mg PO BEDTIME PRN PRN Reason: Insomnia Last Admin: 12/04/21 21:35 Dose: 50 mg Documented by: Allergies Allergies Allergy/AdvReac Type Severity Reaction Status Date / Time clozapine [From Clozaril] Allergy Unknown decreased Verified 11/16/21 19:39 WBC haloperidol [From Haldol] Allergy Unknown unknown Verified 11/16/21 19:36 cat dander Allergy Unknown Verified 11/16/21 21:31 house dust Allergy Unknown Verified 11/16/21 21:31 Phenothiazines Allergy Unknown Verified 11/16/21 21:31 wool Allergy Unknown Verified 11/16/21 21:31 Assessment & Plan Assessment & Plan (1) Urinary retention with incomplete bladder emptying: Status: Acute Code(s): R33.9 - Retention of urine, unspecified Plan The patient is a 76-year-old female with a long history of schizoaffective disorder and endometrial cancer stage IV, terminal admitted from [facility] for a suicidal attempt by overdose of Tylenol but it seems that it was impulsive due to anger at her assisted living facility. Plan Continue same medications, this moment at baseline Waiting for placement 12/04: Ct Rx plan, Await placement 12/06/21 referral to snf pain management cancer care I spent _2_2____ minutes with the patient and/or on the patient floor today, greater than?50% of which was spent counseling/coordinating care. Patient educated on: medication risk/benefits and medical condition Reason for contiued inpatient stay Substantial Risk for: harm to self, inability to function and med/psych decompensation
[2021-12-06] MEDS: Acetaminophen 325 MG TABLET 650 MG PO (11:28)
--- NOTE | 2021-12-06 14:45 | MHC.CLN ---
F/U APPEARS TO BE EATING WELL. CONTINUE REGULAR DIET WITH ENSURE BID. SUPPLEMENT PROVIDES ADDITIONAL 700 KCAL, 40 G PROTEIN. FOLLOWING WEEKLY.
[2021-12-06] MEDS: Prochlorperazine Maleate 5 MG TABLET PO (16:39)
[2021-12-06] MEDS: polyethylene glycoL 3350 17 GM POWD.PACK PO (20:46)
[2021-12-06] MEDS: Divalproex Sodium 500 MG TABLET.DR PO (20:47)
[2021-12-06] MEDS: clonazePAM 0.5 MG TABLET 1.5 MG PO (20:47)
[2021-12-06] MEDS: Montelukast Sodium 10 MG TABLET PO (20:48)
[2021-12-06] MEDS: OLANZapine 10 MG TABLET 20 MG PO (20:48)
[2021-12-06] MEDS: Divalproex Sodium 250 MG TABLET.DR PO (20:48)
[2021-12-06] MEDS: QUEtiapine Fumarate 50 MG TABLET PO (20:49)
[2021-12-06] MEDS: Tamsulosin HCL 0.4 MG CAPSULE 0.8 MG PO (20:50)
[2021-12-06] MEDS: Milk of Magnesia 30 ML ORAL.SUSP PO (20:51)
[2021-12-06] MEDS: traZODone HCL 50 MG TABLET PO (20:52)
[2021-12-06 22:54] VITALS: BP 150/64; PULSE 72; RESP 17; TEMP 37.3; O2SAT 97
[2021-12-07] MEDS: oxyCODONE HCl Immed Release 5 MG TABLET 10 MG PO (01:52)
[2021-12-07] MEDS: Omeprazole 20 MG CAPSULE.DR PO (06:23)
[2021-12-07 08:07] VITALS: BP 113/75; PULSE 69; RESP 16; TEMP 36.6; O2SAT 95
[2021-12-07] MEDS: Loratadine 10 MG TABLET PO (09:15)
[2021-12-07] MEDS: Multivitamin TABLET 1 TAB PO (09:15)
[2021-12-07] MEDS: Sennosides 8.6 MG TABLET 17.2 MG PO (09:15)
[2021-12-07] MEDS: Aspirin 81 MG TAB.CHEW PO (09:15)
[2021-12-07] MEDS: oxyCODONE HCl ER 10 MG TAB.ER.12H PO (09:15)
[2021-12-07] MEDS: Fluticasone Propionate Nasal 16 GM SPRAY 1 SPRAY NOSTRIL-B (09:16)
[2021-12-07] MEDS: Albuterol Sulfate 90 MCG 8 GM INHALER 2 PUFF INHALE (09:16)
[2021-12-07] MEDS: metFORMIN HCl 500 MG TABLET PO (09:16)
[2021-12-07] MEDS: Lactulose 20 GM/30 ML SOLUTION PO (09:16)
[2021-12-07] MEDS: polyethylene glycoL 3350 17 GM POWD.PACK PO (09:16)
--- NOTE | 2021-12-07 09:23 | PM.PSYDC ---
DS: Providers Provider Date of Service: 12/07/21 Date of admission: 11/16/21 19:05 Date of discharge: 12/07/21 Primary care physician: Unknown Physician Consults: 11/16/21 19:39 Consult to Hospitalist Routine Consulting Provider: Hospitalist Reason For Exam: new admit from [facility] 11/17/21 10:58 Consult to Hospitalist Routine Consulting Provider: Hospitalist Reason For Exam: Endometrial cancer, management of porth catheter 11/25/21 06:44 Consult to Urology Routine Consulting Provider: Brett Ventura Reason for consultation: urinary retention Has provider been notified: Yes Attending physician on discharge: Pato Thompson DS: Diagnosis Discharge Diagnosis (1) Urinary retention with incomplete bladder emptying: Status: Acute (2) Schizoaffective disorder, bipolar type: Status: Acute DS: Medications Discharge Medications Home Medications: Home Medications Medication Instructions Recorded Confirmed albuterol sulfate 2.5 mg CONTINUOUS NEBULIZATION QID 11/29/21 11/29/21 amlodipine 10 mg tablet 10 mg PO DAILY 11/29/21 11/29/21 aspirin 81 mg tablet 81 mg PO DAILY 11/29/21 11/29/21 clonazepam 1 mg PO BEDTIME PRN 11/29/21 11/29/21 divalproex 250 mg tablet,extended 750 mg PO BEDTIME 11/29/21 11/29/21 release 24 hr (Depakote ER) fluticasone propionate 50 2 spray INTRANASAL DAILY 11/29/21 11/29/21 mcg/actuation nasal spray,suspension metoprolol tartrate 25 mg tablet 25 mg PO BID 11/29/21 11/29/21 montelukast 10 mg tablet 10 mg PO DAILY 11/29/21 11/29/21 olanzapine 10 mg tablet 10 mg PO BID 11/29/21 11/29/21 oxycodone 10 mg tablet 10 mg PO Q6H PRN 11/29/21 11/29/21 oxycodone 10 mg tablet,crush 10 mg PO Q12H 11/29/21 11/29/21 resistant,extended release 12 hr (OxyContin) pantoprazole 40 mg tablet,delayed 40 mg PO DAILY 11/29/21 11/29/21 release (Protonix) quetiapine 25 mg tablet (Seroquel) 25 mg PO BID PRN 11/29/21 11/29/21 quetiapine 50 mg tablet 50 mg PO BEDTIME 11/29/21 11/29/21 sennosides 8.6 mg tablet (senna) 8.6 mg PO BID 11/29/21 11/29/21 tamsulosin 0.4 mg capsule 0.4 mg PO DAILY 11/29/21 11/29/21 Mental Status Exam Mental Status Exam Patient Appearance: Appropriate Patient Orientation: Person, Place and Situation Level of Consciousness: Awake and Appropriate Patient Behavior: Cooperative Mood Description: Calm Affect Description: Constricted Patient Cognition Impaired: Yes Ability to Follow Directions: Good Speech Pattern: Clear Hallucinations: Auditory Delusions: Paranoid Ideation and Grandiose Thought Process: Distracted and Linear Thought Content: positive for Circumstantial and positive for Poverty of Content Judgement: Fair Data Data Completed and Pending Completed studies during hospitalization [Text1]: 12/02/21 08:14 Creatinine 1.52 H Estim Creat Clear Calc 33.6 Estimated GFR 33 11/17/21 20:30 Urine clean catch - Urine berg top Urine Culture - Final Imaging Diagnostic Imaging Impressions Venous Duplex 11/25/21 11:03 IMPRESSION: No DVT demonstrated in the right lower extremity. Knee X-Ray 12/04/21 18:25 IMPRESSION: No visible acute fracture or dislocation. Small superior patellar enthesophyte. No abnormal joint effusion. Head CT 12/04/21 18:44 IMPRESSION: No acute intracranial pathology. DS: Summary Hospital Course Hospital Course: The patient was initially transfer from [facility] after she intentionally overdosed with a low dose of Tylenol after she was angry on her regular facility. The sj chin carries a diagnosis of a schizoaffective disorder bipolar type and she has several medical comorbidities such as endometrial cancer stage IV, at this moment, on palliative care. Please see HPI of the admission note for further details. On admission, we had family meeting with her guardian and her family, it was clear that the patient did not have an exacerbation of psychosis or depression, she did this intentionally overdose out of anger and she was at her baseline, chronically psychotic with grandiose delusions but safe and easily redirectable. we discussed with the family about discharge planning and they agreed to transfer her to another [facility]. The social sciences research scientist coordinated efforts and finally she found a place and the different [facility] and she agreed on the transfer. Since there were no safety concerns discharge planning was discussed. Time spent discussing smoking cessation with patient: 3 to 10 minutes Status at Discharge Cognitive/behavioral status at discharge: At baseline Functional status at discharge: uses cane/walker Overall status at discharge: patient is back to baseline Time Spent with Patient Time attestation: Total time spent providing and/or coordinating discharge services: Time spent: Less than 30 minutes Discharge Plan Discharge Patient Disposition: Xfer SNF Discharge Diagnosis: Schizoaffective disorder bipolar type Referrals: Dr Cabrera [facility] OBGYN Oncology [Other] - 1 Week (Follow up with [facility] OBGY oncology. ) [facility] [Other] - [facility] ([facility] [facility] [place] [facility] Patel Bajwa MD [Physician] - 1 Week (dec 13, 2021 at 11:20 am ) Discharge Medications: New potassium chloride 10 mEq Capsule, Extended Release 10 meq PO Q48H Qty: 0 0RF acetaminophen 325 mg Tablet 650 mg PO Q6H PRN (Reason: Headache/Pain Mild Scale (1-3)) Qty: 0 0RF loperamide 2 mg Capsule 2 mg PO Q6H PRN (Reason: diarrhea) Qty: 0 0RF trazodone 50 mg Tablet 50 mg PO BEDTIME PRN (Reason: Insomnia) Qty: 0 0RF clonazepam 0.5 mg Tablet 1.5 mg PO DAILY PRN (Reason: anxiety) Qty: 0 0RF clonazepam 0.5 mg Tablet 1.5 mg PO BID Qty: 0 0RF olanzapine 10 mg Tablet 20 mg PO BEDTIME Qty: 0 0RF amlodipine 2.5 mg Tablet 2.5 mg PO DAILY 30 Days Qty: 0 0RF Protocol: Hold for SBP< HOLD for SBP < : 90 divalproex 500 mg Tablet,Delayed Release (Dr/Ec) 500 mg PO BEDTIME Qty: 0 0RF magnesium hydroxide [Milk of Magnesia] 400 mg/5 mL Suspension 30 ml PO DAILY PRN (Reason: Constipation) Qty: 0 0RF tamsulosin 0.4 mg Capsule 0.8 mg PO BEDTIME 30 Days Qty: 0 0RF docusate sodium 100 mg Capsule 100 mg PO BID PRN (Reason: constipation) Qty: 0 0RF aspirin 81 mg Tablet,Chewable 81 mg PO DAILY Qty: 0 0RF hydroxyzine HCl 25 mg Tablet 25 mg PO Q6H PRN (Reason: Anxiety) Qty: 0 0RF bisacodyl 5 mg Tablet,Delayed Release (Dr/Ec) 10 mg PO DAILY PRN (Reason: Constipation) Qty: 0 0RF ibuprofen 600 mg Tablet 600 mg PO Q8H PRN (Reason: mod-severe pain, fever) Qty: 0 0RF albuterol sulfate [Ventolin HFA] 90 mcg/actuation Hfa Aerosol Inhaler 2 puff inhalation Q6H PRN (Reason: asthma) 30 Days Qty: 0 0RF fluticasone propionate 50 mcg/actuation [place],Suspension 1 spray intranasal BID Qty: 0 0RF loratadine 10 mg Tablet 10 mg PO DAILY 30 Days Qty: 0 0RF oxycodone 5 mg Tablet 10 mg PO Q4H PRN (Reason: mod-severe pain) Qty: 0 0RF MAG-AL 200-200 mg/5 mL Suspension 30 ml PO Q6H PRN (Reason: Heartburn/Nausea) Qty: 0 0RF quetiapine 50 mg Tablet 50 mg PO BEDTIME Qty: 0 0RF quetiapine 50 mg Tablet 50 mg PO BID PRN (Reason: agitation, anxiety) Qty: 0 0RF lactulose 20 gram/30 mL Solution 20 g PO BID PRN (Reason: constipation) Qty: 0 0RF oxycodone [OxyContin] 10 mg Tablet,Oral Only,Ext.Rel.12 Hr 10 mg PO BID Qty: 0 0RF multivitamin [Daily-Eliu] Tablet 1 tab PO DAILY Qty: 0 0RF metformin 500 mg Tablet 500 mg PO BIDWM Qty: 0 0RF sennosides [Senna Lax] 8.6 mg Tablet 17.2 mg PO BID Qty: 0 0RF polyethylene glycol 3350 17 gram Powder In Packet 17 g PO BID Qty: 0 0RF prochlorperazine maleate 5 mg Tablet 5 mg PO TID PRN (Reason: nausea, vomiting) Qty: 0 0RF ondansetron 8 mg Tablet,Disintegrating 8 mg translingual Q8H PRN (Reason: Nausea) Qty: 0 0RF Fleet Enema 19-7 gram/118 mL Enema 133 ml DE ONCE PRN (Reason: constipation) Qty: 0 0RF montelukast 10 mg Tablet 10 mg PO BEDTIME Qty: 0 0RF simethicone [Gas Relief (simethicone)] 80 mg Tablet,Chewable 80 mg PO QIDWMHS PRN (Reason: gas) Qty: 0 0RF Pulmicort Flexhaler 180 mcg/actuation Aerosol Powdr Breath Activated 2 puff inhalation RBID Qty: 0 0RF Discontinued quetiapine [Seroquel] 25 mg Tablet 25 mg PO BID PRN (Reason: Anxiety) 0RF sennosides [senna] 8.6 mg Tablet 8.6 mg PO BID 0RF albuterol sulfate 2.5 mg /3 mL (0.083 %) Solution For Nebulization 2.5 mg continuous nebulization QID 0RF olanzapine 10 mg Tablet 10 mg PO BID 0RF tamsulosin 0.4 mg Capsule 0.4 mg PO DAILY 0RF amlodipine 10 mg Tablet 10 mg PO DAILY 0RF pantoprazole [Protonix] 40 mg Tablet,Delayed Release (Dr/Ec) 40 mg PO DAILY 0RF montelukast 10 mg Tablet 10 mg PO DAILY 0RF aspirin 81 mg Tablet 81 mg PO DAILY 0RF fluticasone propionate [Flonase] 50 mcg/actuation Mun[place],Suspension 2 spray INTRANASAL DAILY 0RF divalproex [Depakote ER] 250 mg Tablet Extended Release 24 Hr 750 mg PO BEDTIME 0RF metoprolol tartrate 25 mg Tablet 25 mg PO BID 0RF quetiapine 50 mg Tablet 50 mg PO BEDTIME 0RF oxycodone 10 mg Tablet 10 mg PO Q6H PRN (Reason: Pain) 0RF oxycodone [OxyContin] 10 mg Tablet,Oral Only,Ext.Rel.12 Hr 10 mg PO Q12H 0RF clonazepam tablet 1 mg PO BEDTIME PRN (Reason: Anxiety) 0RF Discharge Orders: Discharge Order (Routine); Ordered 12/07/21 Ordered By: Pato Thompson Diet: advance to usual diet Activity on Discharge: As tolerated Stand Alone Forms: Patient Portal Discharge page Care Plan Goals: Care plan goals achieved and is admission Health Concerns: Continue palliative treatment as per OB YN Plan of Treatment: Continue medication and treatment Assessment: Elderly female with a long history of schizoaffective disorder bipolar type admitted for an overdose of Tylenol in an impulsive manner. The patient is terminal with endometrial cancer stage IV, safe at this moment
[2021-12-07 10:24] LABS: COVID-19 Test Negative (Negative); IDNOW Serial# 08D9AD1C
== END 2021-12-07 10:38 | disposition skilled nursing facility (03) | DRG 885 ==
PROVIDERS: Registered Nurse; Social Worker; Admitting Provider Psychiatry & Neurology Psychiatry; Visit Provider Psychiatry & Neurology Psychiatry
DX: F25.0 Schizoaffective disorder, bipolar type (principal); J44.0 Chronic obstructive pulmonary disease with (acute) lower respiratory infection; Z20.822 Contact with and (suspected) exposure to COVID-19; I10 Essential (primary) hypertension; R33.9 Retention of urine, unspecified; Z91.51 Personal history of suicidal behavior; Z79.1 Long term (current) use of non-steroidal anti-inflammatories (NSAID); Z79.899 Other long term (current) drug therapy
CPT/HCPCS: 36415; 70450; 73560; 80048; 80053; 80061; 80164; 81001; 82565; 82607; 82746; 83036; 83735; 84439; 84443; 85025; 87086; 87635; 93005; 93971; 97161